=== PATIENT | female | born 1945 | race Caucasian/White ===

== ENCOUNTER → 2017-08-28 08:44 | Outpatient (CLI) | payer MEDICARE, SELFPAY ==
[2017-08-28 10:23] LABS: Cholesterol 198 mg/dL (140-199); HDL Cholesterol 49 mg/dL (40-60); LDL Cholesterol Calculated 120 mg/dL (<100); Triglycerides 143 mg/dL (35-150)
[2017-08-28 10:38] LABS: Free T4, Direct Thyroxine 1.26 ng/dL (0.78-2.19)
[2017-08-28 10:52] LABS: Thyroid Stimulating Hormone 0.95 uIU/mL (0.47-4.68)
== END ==
PROVIDERS: PCP Internal Medicine; Visit Provider Internal Medicine Endocrinology, Diabetes & Metabolism
DX: E11.9 Type 2 diabetes mellitus without complications (principal)
CPT/HCPCS: 36415; 80061; 84439; 84443

== ENCOUNTER → 2017-11-27 11:18 | Outpatient (CLI) | payer MEDICARE, SELFPAY ==
[2017-11-27 12:18] LABS: Hemoglobin A1C% w Est Avg Glu 6.6 % (4.0-6.0)
[2017-11-27 12:51] LABS: Cholesterol 141 mg/dL (140-199); HDL Cholesterol 52 mg/dL (40-60); LDL Cholesterol Calculated 64 mg/dL (<100); Triglycerides 123 mg/dL (35-150)
== END ==
PROVIDERS: PCP Internal Medicine; Visit Provider Internal Medicine Endocrinology, Diabetes & Metabolism
DX: E11.9 Type 2 diabetes mellitus without complications (principal)
CPT/HCPCS: 36415; 80061; 83036

== ENCOUNTER → 2018-06-30 10:31 | Outpatient (CLI) | payer MEDICARE, SELFPAY ==
[2018-06-30 11:24] LABS: Cholesterol 141 mg/dL (140-199); HDL Cholesterol 48 mg/dL (40-60); LDL Cholesterol Calculated 72 mg/dL (<100); Triglycerides 106 mg/dL (35-150)
[2018-06-30 11:28] LABS: Hemoglobin A1C% w Est Avg Glu 6.4 % (4.0-6.0)
[2018-06-30 11:52] LABS: TSH w/ Reflex to FT4 1.01 uIU/mL (0.47-4.68)
[2018-06-30 14:44] LABS: Creatinine Urine Random 50.6 mg/dL
[2018-06-30 14:48] LABS: Microalbumi Creatinin Ratio Ur 11.8 ug/mg CR (<30); Microalbumin Urine Random < 0.6 mg/dL (0-1.6)
== END ==
PROVIDERS: PCP Internal Medicine; Visit Provider Internal Medicine Endocrinology, Diabetes & Metabolism
DX: E03.8 Other specified hypothyroidism (principal); E78.5 Hyperlipidemia, unspecified; E11.65 Type 2 diabetes mellitus with hyperglycemia
CPT/HCPCS: 36415; 80061; 82043; 82570; 83036; 84443

== ENCOUNTER → 2018-10-30 10:46 | Outpatient (CLI) | payer MEDICARE, SELFPAY ==
[2018-10-30 12:41] LABS: Alanine Aminotransferase 25 IU/L (9-52); Albumin Globulin Ratio 1.5 (1.0-2.8); Alkaline Phosphatase 55 U/L (38-126); Aspartate Aminotransferase 24 IU/L (14-36); BUN Creatinine Ratio 31.4 (6-22); Bilirubin Total 0.6 mg/dL (0.2-1.3); Blood Urea Nitrogen 22 mg/dL (7-17); Calcium 9.3 mg/dL (8.4-10.2); Carbon Dioxide 25 mmol/L (22-32); Chloride 106 mmol/L (98-107); Cholesterol 165 mg/dL (140-199); Estimated Glomerular Filt Rate > 60.0 mL/min (>60); Globulin 2.6 g/dL (1.7-4.1); Glucose 130 mg/dL (80-110); HDL Cholesterol 55 mg/dL (40-60); HEMOLYSIS < 15 (0-50); LDL Cholesterol Calculated 94 mg/dL (<100); Potassium 4.4 mmol/L (3.4-5.1); Sodium 141 mmol/L (137-145); Total Protein 6.6 g/dL (6.3-8.2); Triglycerides 82 mg/dL (35-150)
[2018-10-30 12:43] LABS: Hemoglobin A1C% w Est Avg Glu 6.3 % (4.0-6.0)
[2018-10-30 12:48] LABS: Microalbumi Creatinin Ratio Ur 8.3 ug/mg CR (<30)
[2018-10-30 13:05] LABS: Thyroid Stimulating Hormone 0.91 uIU/mL (0.47-4.68)
== END ==
PROVIDERS: Family Provider Internal Medicine Endocrinology, Diabetes & Metabolism; PCP Internal Medicine; Visit Provider Internal Medicine
DX: I63.231 Cerebral infarction due to unspecified occlusion or stenosis of right carotid arteries (principal); E11.59 Type 2 diabetes mellitus with other circulatory complications; I10 Essential (primary) hypertension; E11.21 Type 2 diabetes mellitus with diabetic nephropathy; Z79.4 Long term (current) use of insulin
CPT/HCPCS: 36415; 80053; 80061; 82043; 82570; 83036; 84443

== ENCOUNTER → 2019-02-06 10:20 | Outpatient (CLI) | payer MEDICARE, SELFPAY | PROVIDERS: Family Provider Internal Medicine Endocrinology, Diabetes & Metabolism; PCP Internal Medicine; Visit Provider Nurse Practitioner | DX: N39.0 Urinary tract infection, site not specified (principal) | CPT/HCPCS: 87077; 87086; 87186 ==

== ENCOUNTER → 2019-03-19 13:36 | Outpatient (CLI) | payer MEDICARE, SELFPAY | PROVIDERS: Family Provider Internal Medicine Endocrinology, Diabetes & Metabolism; PCP Internal Medicine; Visit Provider Internal Medicine | DX: Z78.0 Asymptomatic menopausal state (principal); E07.9 Disorder of thyroid, unspecified; R29.890 Loss of height; Z90.722 Acquired absence of ovaries, bilateral | CPT/HCPCS: 77080 ==

== ENCOUNTER → 2019-03-22 10:32 | Outpatient (CLI) | payer MEDICARE, SELFPAY ==
--- NOTE | 2019-03-22 10:34 | DI.US.S_ITS ---
PROCEDURE: US PERIPH VENOUS LOW EXTREM RT INDICATIONS: PAIN MEDIAL TO LOWER LEG, R/O DVT TECHNIQUE: Real-time imaging, as well as color and pulse Doppler interrogation, were performed of the lower extremity deep veins from the inguinal ligament to the popliteal fossa. COMPARISON: None. FINDINGS: The common femoral, femoral and popliteal veins are normally compressible, and free of intraluminal thrombus. Color and pulse Doppler demonstrate normal phasic intraluminal flow. There is normal augmentation response to distal compression maneuver. IMPRESSION: No evidence of deep vein thrombosis of the right lower extremity. Dictated by: Miguel Mike M.D. on 03/22/2019 at 10:24 Approved by: Miguel Mike M.D. on 03/22/2019 at 10:32
== END ==
PROVIDERS: Family Provider Internal Medicine Endocrinology, Diabetes & Metabolism; PCP Internal Medicine; Visit Provider Physician Assistant
DX: M25.561 Pain in right knee (principal)
CPT/HCPCS: 93971

== ENCOUNTER → 2019-04-01 10:49 | Outpatient (CLI) | payer MEDICARE, SELFPAY ==
[2019-04-01 12:15] LABS: Add Manual Diff / Slide Review NO; Basophils Absolute Auto 0 /uL (0-100); Basophils Percent Auto 0.7 % (0-2); Eosinophils Absolute Auto 100 /uL (0-450); Eosinophils Percent Auto 2.5 % (2-4); Hematocrit 42.5 % (36-46); Hemoglobin 14.2 g/dL (12.0-16.0); Lymphocytes Absolute Auto 1800 /uL (1100-4500); Lymphocytes Percent Auto 32.1 % (25-40); Mean Corpuscular HGB Conc 33.5 % (30-36); Mean Corpuscular Volume 89.6 fL (80-100); Monocytes Absolute Auto 400 /uL (0-900); Neutrophils Absolute Auto 3200 /uL (1500-7000); Neutrophils Percent Auto 57.7 % (50-75); Platelet Count 210 X10^3/uL (150-400); Red Blood Cell Count 4.74 X10^6/uL (4.0-5.2); Red Cell Distribution Width 13.9 % (11.6-14.8); White Blood Cell Count 5.5 X10^3/uL (4.5-11.0)
[2019-04-01 12:25] LABS: Hemoglobin A1C% w Est Avg Glu 6.1 % (4.0-6.0)
[2019-04-01 12:42] LABS: Alanine Aminotransferase 22 IU/L (<35); Albumin 4.6 g/dL (3.5-5.0); Albumin Globulin Ratio 1.5 (1.0-2.8); Alkaline Phosphatase 53 U/L (38-126); Aspartate Aminotransferase 26 IU/L (14-36); BUN Creatinine Ratio 25.6 (6-22); Bilirubin Total 0.6 mg/dL (0.2-1.3); Blood Urea Nitrogen 23 mg/dL (7-17); Carbon Dioxide 27 mmol/L (22-32); Chloride 103 mmol/L (98-107); Estimated Glomerular Filt Rate > 60.0 mL/min (>60); Glucose 140 mg/dL (80-110); HEMOLYSIS < 15 (0-50); Potassium 4.8 mmol/L (3.4-5.1); Sodium 141 mmol/L (137-145); Total Protein 7.6 g/dL (6.3-8.2)
[2019-04-01 12:55] LABS: Creatinine Urine Random 101.3 mg/dL
[2019-04-01 12:59] LABS: Microalbumi Creatinin Ratio Ur 6.9 ug/mg CR (<30); Microalbumin Urine Random 0.7 mg/dL (0-1.6)
[2019-04-01 13:42] LABS: Hep C Virus Ab w/Reflex Quant NEGATIVE s/c (NEGATIVE)
== END ==
PROVIDERS: Family Provider Internal Medicine Endocrinology, Diabetes & Metabolism; PCP Internal Medicine; Referring Provider Internal Medicine; Visit Provider Internal Medicine
DX: Z11.59 Encounter for screening for other viral diseases (principal); E11.9 Type 2 diabetes mellitus without complications
CPT/HCPCS: 36415; 80053; 82043; 82570; 83036; 85025; 86803

== ENCOUNTER 2019-06-19 11:43 | Emergency (ER) | payer MEDICARE, SELFPAY ==
[2019-06-19 11:52] VITALS: BP 174/79; PULSE 94; RESP 14; TEMP 36.7; O2SAT 99
--- NOTE | 2019-06-19 12:05 | ED.FEMALEGU ---
HPI - Female Genitourinary General Chief complaint: Urogenital-Female Stated complaint: hematuria/urgency/frequency/pain x1 day Time Seen by Provider: 06/19/19 11:49 Source: patient Mode of arrival: Ambulatory Limitations: no limitations History of Present Illness HPI Narrative: CC: Hematuria with urgency and frequency. HPI: The patient is a 74-year-old female who does not appear to be in any acute distress comes into the emergency department stating that she believes she is having an acute urinary tract infection. This has developed over the last 2 days prior to admission. She admits to a history of frequent urinary tract infections. Today she noticed some blood in her urine. She complains that she has had increasing arm dysuria frequency with urgency. She denies any back pain. She has had no fever chills or sweats. She denies being on any anticoagulant. 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 She has a history of diabetes mellitus but no hypertension myocardial infarction or congestive heart failure. She has had no fever chills or sweats. She denies any chest pain cough shortness of breath palpitations. She has had no nausea vomiting diarrhea. She complains of lower abdominal pressure. She denies smoking cigarettes drinks alcohol only socially and does not use any drugs including marijuana. Related Data Home Medications Medication Instructions Recorded Confirmed thyroid (pork) [Nature-Throid] 65 mg PO QDAY@0600 #0 03/07/17 02/06/19 aspirin [Adult Low Dose Aspirin] 81 mg PO DAILY 06/19/19 06/19/19 Previous Rx's Medication Instructions Recorded nitrofurantoin monohyd/m-cryst 100 mg PO BID #28 cap 06/19/19 [Macrobid] phenazopyridine [Pyridium] 100 mg PO TID PRN #9 tab 06/19/19 Allergies Allergy/AdvReac Type Severity Reaction Status Date / Time No Known Drug Allergies Allergy Verified 06/19/19 11:55 Review of Systems Review of Systems Narrative: Her review of systems were all negative except for those mentioned in the history of present illness. Patient History Medical History Right knee pain (Acute) Surgical History History of bilateral salpingo-oophorectomy (BSO) Status post appendectomy Status post hysterectomy Family History Brother Age: 69 Diabetes mellitus Hypertension High cholesterol Brother Age: 67 Heart disease Hypertension High cholesterol Father Heart disease Stroke alcohol intake frequency: 0-2 drinks per day Substance Use Type: does not use Exam Narrative Exam Narrative: PHYSICAL EXAM: CONSTITUTIONAL: Awake, Alert, Oriented, Coherent, Cooperative in NAD. Does not appear toxic or ill. She does not appear uncomfortable. HEAD: AT/NC EENT: PERRL, FROM of eyes, no discharge. MOUTH:Oral mucosa is moist and pink, posterior pharynx is without erythema or exudate. NECK: Supple, no obvious JVD, Trachea is midline without stridor. SPINE: Palpationof the cervical, Thoracic, Lumbar or Sacral spine reveals no gross deformity or tenderness. No CVA tenderness. THORAX: No deformity, retractions, chest wall tenderness. LUNGS: Clear, symmetrical breath sounds without respiratory distress. HEART: Normal heart tones, regular rhythm and rate without murmur. ABDOMEN: Soft, non-tender, normal bowel sounds without guarding, rebound, rigidity or palpable mass. NEURO: Awake, alert, oriented, conversive, cranial nerves II-XII are symmetrical , moves all 4 extremities and is ambulatory. Initial Vital Signs Initial Vital Signs: Vital Signs Temperature 98.0 F 06/19/19 11:52 Pulse Rate 94 H 06/19/19 11:52 Respiratory Rate 14 06/19/19 11:52 Blood Pressure 174/79 H 06/19/19 11:52 Pulse Oximetry 99 06/19/19 11:52 Course Orders Ordered: Discontinued Medications Nitrofurantoin Macrocrystals (Macrobid 100 Mg Capsule) 100 mg PO NOW ONE Stop: 06/19/19 12:00 Last Admin: 06/19/19 12:33 Dose: 100 mg Documented by: CASA Phenazopyridine HCl (Pyridium) 100 mg PO NOW ONE Stop: 06/19/19 12:01 Last Admin: 06/19/19 12:33 Dose: 100 mg Documented by: CASA Vital Signs Vital signs: Vital Signs - 8 hr 06/19/19 11:52 Temperature 98.0 F Pulse Rate 94 H Respiratory Rate 14 Blood Pressure 174/79 H Pulse Oximetry 99 MDM - Female Genitourinary Lab Data Labs: Lab Results 06/19/19 Range/Units 12:17 Urine Color Red Urine Appearance Cloudy Urine pH 5.0 (4.5-8.0) Ur Specific [place] 1.010 (1.000-1.035) Urine Protein 2+ H (Negative) Urine Glucose (UA) Negative (Negative) g/dL Urine Ketones Negative (NEGATIVE) Urine Occult Blood 3+ H (Negative) Urine Nitrate Negative (Negative) Urine Bilirubin Negative (NEGATIVE) Urine Urobilinogen 0.2 (0.2) E.U./dL Ur Leukocyte Esterase 1+ H (NEGATIVE) Urine RBC >100/hpf H (0-5/HPF) Urine WBC >100/hpf H (0-5/HPF) Ur Squamous Epith Cells 0-1 /hpf (0-5/HPF) Ur Transition Epith Cell 0-1/hpf (0-5/HPF) Urine Bacteria Few (2-10) H (None) Ur Culture Indicated? Specimen cultured Discharge Plan Departure Patient Disposition: Home Clinical Impression: Acute hemorrhagic cystitis, Dysuria-frequency syndrome Discharge Date/Time: 06/19/19 12:47 Instructions: DI for Urinary Tract Infection (UTI) Activity Restrictions/Additional Instructions: 1. Follow-up with your urologist in [place]. Call and make a follow-up appointment. If you develop worsening abdominal pain or continued symptoms despite being on the Macrobid you need to return to the emergency department to be re-evaluated. 2. Take the Macrobid and peridium as prescribed. If you develop persistent nausea vomiting fever chills or sweats you need to return to the emergency department to be re-evaluated. Prescriptions: New nitrofurantoin monohyd/m-cryst [Macrobid] 100 mg capsule 100 mg PO BID Qty: 28 RF: 0 phenazopyridine [Pyridium] 100 mg tablet 100 mg PO TID PRN (Reason: pain) Qty: 9 RF: 0 No Action thyroid (pork) [Nature-Throid] 65 MG tablet 65 mg PO QDAY@0600 Qty: 0 RF: 0 aspirin [Adult Low Dose Aspirin] 81 mg Tablet,Delayed Release (Dr/Ec) 81 mg PO DAILY RF: 0 Referrals: Lo Brown MD [Primary Care Provider] -
[2019-06-19] MEDS: NITROFURANTOIN ER 100 MG CAPSULE PO (12:33)
[2019-06-19] MEDS: PHENAZOPYRIDINE 100 MG TABLET PO (12:33)
[2019-06-19 12:37] LABS: Appearance Urine UA CLOUDY; Bilirubin Urine UA NEGATIVE (NEGATIVE); Color Urine UA RED; Glucose Urine UA NEGATIVE (Negative); Ketones Urine UA NEGATIVE (NEGATIVE); Leukocyte Esterase Urine UA 1+ (NEGATIVE); Nitrite Urine UA NEGATIVE (Negative); Occult Blood Urine UA 3+ (Negative); Protein Urine UA 2+ (Negative); Urobilinogen Urine UA 0.2 E.U./dL (0.2)
[2019-06-19 12:42] LABS: Bacteria Urine Few (2-10); Culture Indicated Urine Specimen Cultured; RBC Urine >100/HPF (0-5/HPF); Squamous Epithelial Cell Urine 0-1 /HPF (0-5/HPF); Transitional Epi Cells Urine 0-1/HPF (0-5/HPF); WBC Urine >100/HPF (0-5/HPF)
[2019-06-19 12:45] VITALS: BP 149/77; PULSE 73; RESP 18; O2SAT 96
== END 2019-06-19 12:47 | disposition home or self-care (01) ==
PROVIDERS: Emergency Provider Emergency Medicine; Family Provider Internal Medicine Endocrinology, Diabetes & Metabolism; PCP Internal Medicine
DX: N30.01 Acute cystitis with hematuria (principal); R30.0 Dysuria; N34.3 Urethral syndrome, unspecified
CPT/HCPCS: 81001; 87077; 87086; 87186; 99283

== ENCOUNTER → 2019-11-02 17:15 | Outpatient (CLI) | payer MEDICARE, SELFPAY | PROVIDERS: Family Provider Internal Medicine Endocrinology, Diabetes & Metabolism; PCP Internal Medicine; Visit Provider Nurse Practitioner | DX: R30.0 Dysuria (principal) | CPT/HCPCS: 87086 ==

== ENCOUNTER → 2019-11-11 09:53 | Outpatient (CLI) | payer MEDICARE, SELFPAY ==
[2019-11-11 10:36] LABS: Alanine Aminotransferase 22 IU/L (<35); Albumin 4.1 g/dL (3.5-5.0); Albumin Globulin Ratio 1.4 (1.0-2.8); Alkaline Phosphatase 50 U/L (38-126); Aspartate Aminotransferase 22 IU/L (14-36); Bilirubin Total 0.6 mg/dL (0.2-1.3); Blood Urea Nitrogen 18 mg/dL (7-17); Calcium 9.4 mg/dL (8.4-10.2); Carbon Dioxide 29 mmol/L (22-32); Chloride 104 mmol/L (98-107); Cholesterol 156 mg/dL (140-199); Estimated Glomerular Filt Rate > 60.0 mL/min (>60); Glucose 171 mg/dL (80-110); HDL Cholesterol 58 mg/dL (40-60); HEMOLYSIS < 15 (0-50); Hemoglobin A1C% w Est Avg Glu 6.9 % (4.0-6.0); LDL Cholesterol Calculated 78 mg/dL (<100); Potassium 4.9 mmol/L (3.4-5.1); Sodium 139 mmol/L (137-145); Total Protein 7.1 g/dL (6.3-8.2); Triglycerides 101 mg/dL (35-150)
[2019-11-11 11:30] LABS: Thyroid Stimulating Hormone 0.985 uIU/mL (0.47-4.68)
== END ==
PROVIDERS: Family Provider Internal Medicine Endocrinology, Diabetes & Metabolism; PCP Internal Medicine; Referring Provider Internal Medicine; Visit Provider Internal Medicine
DX: R94.6 Abnormal results of thyroid function studies (principal); E11.59 Type 2 diabetes mellitus with other circulatory complications; I10 Essential (primary) hypertension
CPT/HCPCS: 36415; 80053; 80061; 83036; 84439; 84443

== ENCOUNTER 2020-05-12 13:33 | Emergency (ER) | payer MEDICARE, SELFPAY ==
[2020-05-12] VITALS (9 sets, daily range): BP systolic 161–185; BP diastolic 89–103; PULSE 75–107; RESP 16–18; TEMP 36.1; O2SAT 92–98; BMI 32.8
--- NOTE | 2020-05-12 14:24 | ED.GENADULT ---
HPI - General Adult General Chief complaint: Dizziness Stated complaint: nausea,dizziness,headache sent by doc Time Seen by Provider: 05/12/20 14:14 Source: patient Mode of arrival: Ambulatory Limitations: no limitations History of Present Illness HPI narrative: Patient is a 75-year-old female here for evaluation of nausea and dizziness. She also expresses a slight headache and a fullness in her right ear. She did take some Sudafed as she thought that potentially this was the cause of the problem and potentially help a slight amount. She has had a TIA in the past. There has also been a question of a CVA. She does not have any residual deficits from any potential stroke. She is not on anticoagulation except for aspirin. She has never had vertigo in the past. She does express a feeling like she is walking on a boat and not so much a room spinning sensation. She does have a history of hypothyroid. She is afebrile. She contacted her primary doctor who thought that she should come in to be evaluated. She does have a history of a right carotid artery stent which was placed after she had a workup for her TIA. Related Data Home Medications Medication Instructions Recorded Confirmed thyroid (pork) [Nature-Throid] 65 mg PO QDAY@0600 #0 03/07/17 11/02/19 aspirin [Adult Low Dose Aspirin] 81 mg PO DAILY 06/19/19 11/02/19 Previous Rx's Medication Instructions Recorded nitrofurantoin monohyd/m-cryst 100 mg PO BID #28 cap 06/19/19 [Macrobid] phenazopyridine [Pyridium] 100 mg PO TID PRN #9 tab 06/19/19 meclizine 25 mg PO TID PRN #10 tab 05/12/20 Allergies Allergy/AdvReac Type Severity Reaction Status Date / Time No Known Drug Allergies Allergy Verified 11/02/19 16:39 Review of Systems Constitutional Constitutional: Denies fatigue, Denies fever(s), Reports headache(s) and Denies weakness Eyes Eyes: Denies blurry vision ENT Ears, Nose, Mouth, and Throat: Denies vertigo, Reports dizziness, Reports headache(s) and Reports disequilibrium Cardiovascular Cardiovascular: Denies chest pain and Denies dyspnea Respiratory Respiratory: Denies dyspnea Gastrointestinal Gastrointestinal: Denies abdominal pain, Denies nausea and Denies vomiting Genitourinary Genitourinary: Denies dysuria Genitourinary: Denies dysuria Musculoskeletal Musculoskeletal: Denies arthralgias, Denies myalgias and Denies numbness Integumentary/Breasts Skin/Breast: Denies rash Neurologic Neurologic: Denies abnormal movements, Denies abnormal speech, Denies confusion, Denies vertigo, Reports dizziness, Reports headache(s), Denies localized weakness, Denies numbness, Denies convulsions, Reports disequilibrium and Denies weakness Psychiatric Psychiatric: Denies confusion Endocrine Endocrine: Denies fatigue Hematologic/Lymphatic On Anticoagulants: No Allergic/Immunologic Allergic/Immunologic: Denies urticaria Patient History Medical History (Updated 05/13/20 @ 08:00 by Karsten Dang DO) Hypertension Right knee pain TIA (transient ischemic attack) Surgical History History of bilateral salpingo-oophorectomy (BSO) Status post appendectomy Status post hysterectomy Family History Brother Age: 70 Diabetes mellitus Hypertension High cholesterol Brother Age: 68 Heart disease Hypertension High cholesterol Father Heart disease Stroke Social History Smoking Status: Never smoker Smoking Status: Never smoker alcohol intake frequency: 0-2 drinks per day Substance Use Type: does not use Exam Initial Vital Signs Initial Vital Signs: Vital Signs Temperature 97.0 F L 05/12/20 13:44 Pulse Rate 107 H 05/12/20 13:44 Respiratory Rate 16 05/12/20 13:44 Blood Pressure 183/103 H 05/12/20 13:44 Pulse Oximetry 97 05/12/20 13:44 Const General: cooperative, comfortable and well developed Limitations: mental status not altered HENMT Head: normal to inspection and normocephalic Ears: TM's normal bilaterally Mouth: oral mucosae normal Resp Effort & Inspection: normal respiratory effort Auscultation: clear to auscultation bilaterally Cardio Rate: regular rate Rhythm: regular rhythm GI Inspection: non-distended Palpation: soft Skin Lesions: no lesions Rashes: no rashes Neuro General: patient alert, patient awake and patient oriented x3 Cranial Nerves: CN's II-XI intact bilaterally Cognition: normal cognition Speech: speech normal Gait: other (Is able to walk but somewhat unsteady) Motor: muscle tone normal throughout Sensory Exam: no sensory deficits noted Coordination: [id number] test normal Extrem General: normal to inspection, capillary refill normal and No edema Psych Appearance: grossly normal and well kempt Scores GCS [place] coma scale eye opening: Spontaneous [place] coma scale verbal response: Orientated [place] coma scale motor response: Obey commands Eda coma scale total score: 15 NIH Stroke Scale Level of Conciousness: Alert, keenly responsive Ask month/age: Answers both questions correctly. Open/close eyes, close hand: Performs both tasks correctly Best gaze horizontal: Normal Visual crum: No visual loss Facial palsy: Normal symetrical movement Left arm drift: No drift for full 10 sec Right arm drift: No drift for full 10 sec Left leg drift: No drift for full 5 sec Right leg drift: No drift for full 5 sec Limb ataxia: Absent Sensory on face/arms/legs: Normal, no sensory loss Best language: No aphasia, normal Dysarthria: Normal Extinction or inattention: No abnormality Total NIH Stroke scale score: 0 Course Orders Ordered: ED Orders 05/12/20 13:47 EKG-12 Lead Stat 05/12/20 14:09 XR chest 1V Stat Complete Blood Count AUTO DIFF Stat Comprehensive Metabolic Panel Stat Lipase Stat Partial Thromboplastin Time Stat Prothrombin Time INR Stat Troponin & CK Cardiac Panel Stat Vital Signs Vital signs: Vital Signs - 8 hr 05/12/20 13:44 05/12/20 13:57 05/12/20 14:00 Temperature 97.0 F L Pulse Rate 107 H 90 90 Respiratory Rate 16 16 18 Blood Pressure 183/103 H 185/89 H Pulse Oximetry 97 94 95 Medical Decision Making Lab Data Lab results reviewed: Yes I reviewed the patient's lab results. Result diagrams: 05/12/20 14:05 05/12/20 14:05 Labs: Lab Results 05/12/20 05/12/20 05/12/20 Range/Units 14:05 14:05 14:05 WBC 6.9 (4.5-11.0) X10^3/uL RBC 4.45 (4.0-5.2) X10^6/uL Hgb 13.1 (12.0-16.0) g/dL Hct 39.9 (36-46) % MCV 89.6 (80-100) fL MCH 29.5 (26-34) PG MCHC 32.9 (30-36) % RDW 13.6 (11.6-14.8) % Plt Count 193 (150-400) X10^3/uL Neut % (Auto) 57.3 (50-75) % Lymph % (Auto) 31.8 (25-40) % [place] % (Auto) 8.4 (3-14) % Eos % (Auto) 2.1 (2-4) % Baso % (Auto) 0.4 (0-2) % Neut # (Auto) 4000 (0958-6802) /uL Lymph # (Auto) 2200 (4320-0239) /uL [place] # (Auto) 600 (0-900) /uL Eos # (Auto) 100 (0-450) /uL Baso # (Auto) 0 (0-100) /uL PT 12.4 (10.1-12.7) SECONDS INR 1.1 (0.9-1.3) APTT 28 (26.4-36.2) SECONDS Sodium 138 (137-145) mmol/L Potassium 3.8 (3.4-5.1) mmol/L Chloride 105 (98-107) mmol/L Carbon Dioxide 26 (22-32) mmol/L BUN 15 (7-17) mg/dL Creatinine 0.63 (0.52-1.04) mg/dL Estimated GFR > 60.0 (>60) mL/min BUN/Creatinine Ratio 23.8 H (6-22) Glucose 111 H (80-110) mg/dL Calcium 9.8 (8.4-10.2) mg/dL Total Bilirubin 0.5 (0.2-1.3) mg/dL AST 25 (14-36) IU/L ALT 24 (<35) IU/L Alkaline Phosphatase 57 (38-126) U/L Total Creatine Kinase 65 (30-135) U/L CK-MB (CK-2) TNP CK-MB (CK-2) Rel Index TNP Troponin I < 0.012 (0.01-0.034) ng/mL Total Protein 7.1 (6.3-8.2) g/dL Albumin 4.3 (3.5-5.0) g/dL Globulin 2.8 (1.7-4.1) g/dL Albumin/Globulin Ratio 1.5 (1.0-2.8) Lipase 55 (23-300) U/L Urine Dip Bedside Urine Glucose Negative Bedside Urine Bilirubin - Negative Bedside Urine Ketone - Negative Urine Specific [place] 1.020 Bedside Urine Occult Blood - Negative Bedside Urine pH 6 Bedside Urine Protein - Negative Bedside Urine Urobilinogen - Negative Bedside Urine Nitrite - Negative Bedside Urine Leukocytes - Negative Esterase Point of care testing: Urine Dip Bedside Urine Glucose Negative Bedside Urine Bilirubin - Negative Bedside Urine Ketone - Negative Urine Specific [place] 1.020 Bedside Urine Occult Blood - Negative Bedside Urine pH 6 Bedside Urine Protein - Negative Bedside Urine Urobilinogen - Negative Bedside Urine Nitrite - Negative Bedside Urine Leukocytes - Negative Esterase Imaging Data CTA - brain/neck: Radiologist's Impression: [address] [id number] Scan ReportSigned Patient: Bryan Quesada JMR#: [id number]: [id number]/Sex: 75 / FDate of Service: 05/12/20Loc: EDAccession Number: [id number] Procedure: CT angio head and neck Ordering Provider: Karsten Dang D.O. PROCEDURE: CT ANGIO HEAD AND NECK INDICATIONS: hx of TIA and right carotid artery stent now with dizziness TECHNIQUE: Pre-contrast 4.5 mm thick sections acquired from the foramen magnum to the vertex. After the administration of intravenous contrast, 1 mm thick sections acquired from the aortic arch through the [place] of [place]. Post-contrast 4.5 mm thick sections then re-acquired from the foramen magnum to the vertex. 3-dimensional mmujovh-hjwhktdgh-gqukcrviix (MIP) and/or volume rendering reformats were acquired of the central intracranial vasculature and neck separately. COMPARISON: [facility], MR, STROKE PROTOCOL, 03/07/2017, 11:20. [facility], CT, HEAD WITHOUT CONTRAST, 03/07/2017, 2:29. FINDINGS: Image quality: Excellent. BRAIN: CSF spaces: Basal cisterns are patent. No extra-axial fluid collections. The ventricles are normal in size. Brain: No intracranial hemorrhage, mass, or mass effect. There is encephalomalacia redemonstrated within the right posterior parietal and occipital lobes consistent with sequelae of a prior infarct. A small region of encephalomalacia is also redemonstrated in the right frontal lobe consistent with a small prior infarct. No abnormal intracranial enhancement. The a Skull and face: Calvarium and facial bones appear intact, without suspicious lesions. Orbits appear normal. Sinuses: Sinuses and mastoids are clear. HEAD CT ANGIOGRAPHY: Anterior circulation: Intracranial internal carotid arteries are normal in size and appear patent bilaterally. There is mild atherosclerotic calcification along the cavernous segments of the internal carotid arteries. The paired anterior cerebral arteries appear patent bilaterally. The anterior communicating artery also appears patent. The middle cerebral arteries appear patent bilaterally. No high-grade stenosis, occlusion, or filling defects. No cerebral aneurysms identified. Posterior circulation: Visualized portions of the vertebral arteries demonstrate normal caliber, and join to form a patent basilar artery. The posterior cerebral arteries appears patent bilaterally. No high-grade stenosis, occlusion, or filling defects. No cerebral aneurysms identified. NECK CT ANGIOGRAPHY: Carotid system: The great vessels demonstrate a conventional anatomy as they arise from the aortic arch. The origins of the common carotid arteries appear patent. There is a vascular stent in the right common carotid artery extending into the proximal internal carotid artery. The right external carotid artery appears occluded with subsequent reconstitution of more distal branches. There is atherosclerotic vascular calcification at the left carotid bifurcation and in the left carotid bulb with associated mild narrowing of less than 50%. The internal carotid arteries subsequently demonstrate normal calibers and courses. Posterior circulation: The origins of the vertebral arteries both appear patent. The more superior extracranial portions of both vertebral arteries also demonstrate normal courses and calibers. They join to form a patent basilar artery. Soft tissues: Visualized neck soft tissues demonstrate no suspicious abnormalities. Bones: No suspicious bony lesions. Visualized cervical spine demonstrates multilevel degenerative disc disease, including moderate degeneration at C5-C6. IMPRESSION: 1. No definite acute intracranial abnormality. 2. Areas of right-sided encephalomalacia redemonstrated consistent with sequelae of old infarcts. 3. No high-grade stenosis or occlusion of the central intracranial arteries. 4. Right carotid artery stent appears patent. 5. Occlusion of the right external carotid artery with reconstitution of branches distally. 6. Mild narrowing in the left carotid bulb of less than 50%. Any quantitative measurements of stenosis were performed using NASCET criteria. Dictated by: Joseluis Arias M.D. on 05/12/2020 at 15:36 Approved by: Joseluis Arias M.D. on 05/12/2020 at 15:55 ECG Data Attestation: I personally reviewed and interpreted this ECG as follows: Prior ECG tracings: not available for review Interpretation: Sinus rhythm Ventricular rate 89 Normal axis Normal QRS Normal QTC No ST T wave changes MDM Narrative Medical decision making narrative: NIH score of 0. Symptoms started 3 days ago. CTA of the head neck today unremarkable shows no large vessel occlusion. She is able to walk without assistance but does seem somewhat unsteady. She does have fullness in her right ear. Given her clinical presentation I did consider a posterior stroke however workup here in the emergency department is unremarkable. Informed her that she is outside the window for any tPA. We also discussed that according to the CT there is no occlusion that would require retrieval intervention. She is also outside of the window for this. She is already on an aspirin and other medical treatment for potential CVA. I do feel that if her symptoms do not improve with decongestants another conservative treatment that an MRI would be necessary but I feel that this could wait to be ordered by her primary doctor. I did discuss all this with the patient. I did discuss my concerns and the proposed plan. She expressed understanding and agreed with this fully and will contact her primary provider for follow-up. She was given return precautions. Discharge Plan Departure Patient Disposition: Home Clinical Impression: General unsteadiness Instructions: DI for Dizziness-Nonvertigo Activity Restrictions/Additional Instructions: I recommend you continue all of your medications as directed although I do recommend that you stop taking the pseudoephedrine. You can continue with the Flonase. Take the meclizine that was prescribed to you by your primary doctor as directed. I also recommend that you start taking either Claritin or Caitlyn or Zyrtec. The generic version of these medications is also appropriate. You can purchase them [id number]. Return to the emergency department for any new or worsening symptoms Prescriptions: New meclizine 25 mg tablet 25 mg PO TID PRN (Reason: dizziness) Qty: 10 RF: 0 No Action thyroid (pork) [Nature-Throid] 65 MG tablet 65 mg PO QDAY@0600 Qty: 0 RF: 0 aspirin [Adult Low Dose Aspirin] 81 mg Tablet,Delayed Release (Dr/Ec) 81 mg PO DAILY RF: 0 nitrofurantoin monohyd/m-cryst [Macrobid] 100 mg capsule 100 mg PO BID Qty: 28 RF: 0 phenazopyridine [Pyridium] 100 mg tablet 100 mg PO TID PRN (Reason: pain) Qty: 9 RF: 0 Referrals: Lo Brown MD [Primary Care Provider] -
[2020-05-12 14:28] LABS: Add Manual Diff / Slide Review NO; Basophils Absolute Auto 0 /uL (0-100); Basophils Percent Auto 0.4 % (0-2); Eosinophils Absolute Auto 100 /uL (0-450); Eosinophils Percent Auto 2.1 % (2-4); Hematocrit 39.9 % (36-46); Hemoglobin 13.1 g/dL (12.0-16.0); Lymphocytes Absolute Auto 2200 /uL (1100-4500); Lymphocytes Percent Auto 31.8 % (25-40); Mean Corpuscular HGB Conc 32.9 % (30-36); Mean Corpuscular Hemoglobin 29.5 PG (26-34); Mean Corpuscular Volume 89.6 fL (80-100); Monocytes Absolute Auto 600 /uL (0-900); Monocytes Percent Auto 8.4 % (3-14); Neutrophils Absolute Auto 4000 /uL (1500-7000); Neutrophils Percent Auto 57.3 % (50-75); Platelet Count 193 X10^3/uL (150-400); Red Blood Cell Count 4.45 X10^6/uL (4.0-5.2); Red Cell Distribution Width 13.6 % (11.6-14.8); White Blood Cell Count 6.9 X10^3/uL (4.5-11.0)
[2020-05-12 14:36] LABS: INR 1.1 (0.9-1.3); Prothrombin Time 12.4 SECONDS (10.1-12.7)
[2020-05-12 14:38] LABS: PTT Partial Thromboplastin Tim 28 SECONDS (26.4-36.2)
[2020-05-12 14:39] LABS: Alanine Aminotransferase 24 IU/L (<35); Albumin 4.3 g/dL (3.5-5.0); Albumin Globulin Ratio 1.5 (1.0-2.8); Alkaline Phosphatase 57 U/L (38-126); Aspartate Aminotransferase 25 IU/L (14-36); BUN Creatinine Ratio 23.8 (6-22); Bilirubin Total 0.5 mg/dL (0.2-1.3); Blood Urea Nitrogen 15 mg/dL (7-17); Calcium 9.8 mg/dL (8.4-10.2); Carbon Dioxide 26 mmol/L (22-32); Chloride 105 mmol/L (98-107); Creatine Kinase 65 U/L (30-135); Estimated Glomerular Filt Rate > 60.0 mL/min (>60); Globulin 2.8 g/dL (1.7-4.1); Glucose 111 mg/dL (80-110); HEMOLYSIS < 15 (0-50); Lipase 55 U/L (23-300); Potassium 3.8 mmol/L (3.4-5.1); Sodium 138 mmol/L (137-145); Total Protein 7.1 g/dL (6.3-8.2)
[2020-05-12 14:51] LABS: Troponin I < 0.012 ng/mL (0.01-0.034)
== END 2020-05-12 16:33 | disposition home or self-care (01) ==
PROVIDERS: Emergency Provider Emergency Medicine; Family Provider Internal Medicine Endocrinology, Diabetes & Metabolism; PCP Internal Medicine
DX: R26.81 Unsteadiness on feet (principal); R51.9 Headache, unspecified; R11.0 Nausea; R07.9 Chest pain, unspecified; Z95.5 Presence of coronary angioplasty implant and graft
CPT/HCPCS: 36415; 70496; 70498; 80053; 81003; 82550; 83690; 84484; 85025; 85610; 85730; 93005; 93010; 99284; Q9967

== ENCOUNTER 2020-05-22 17:20 | Observation (INO) | payer MEDICARE, SELFPAY ==
[2020-05-22] VITALS (9 sets, daily range): BP systolic 154–200; BP diastolic 84–100; PULSE 93–110; RESP 16–24; TEMP 36.2–36.5; O2SAT 94–99; BMI 33.0
--- NOTE | 2020-05-22 17:33 | DI.CT.S_ITS ---
PROCEDURE: CT HEAD/BRAIN WO CON INDICATIONS: confusion dizziness, headache TECHNIQUE: Noncontrast 4.5 mm thick angled axial sections acquired from the foramen magnum to the vertex, with coronal and sagittal reformats. For radiation dose reduction, the following was used: automated exposure control, adjustment of mA and/or kV according to patient size. COMPARISON: [facility], CT, HEAD WITHOUT CONTRAST, 08/30/2014, 19:23. [facility], CT, HEAD WITHOUT CONTRAST, 09/02/2014, 8:51. [facility], CT, CT ANGIO HEAD AND NECK, 05/12/2020, 14:47. [facility], CT, HEAD WITHOUT CONTRAST, 03/07/2017, 2:29. FINDINGS: Image quality: Excellent. CSF spaces: Basal cisterns are patent. No extra-axial fluid collections. The ventricles are symmetric in size and shape. Brain: There is a remote right posterior cerebral hemisphere infarction seen, which is similar to 2018. No intracranial bleeds or masses. There is cerebral volume loss for age, with resultant ventricular and sulcal prominence. There are periventricular and deep white matter chronic small vessel ischemic changes. There is intracranial internal carotid artery atherosclerosis. Skull and face: Calvarium and visualized facial bones appear intact, without suspicious lesions. Sinuses: Visualized sinuses and mastoids are clear. IMPRESSION: No acute intracranial process is seen. Remote right posterior cerebral hemisphere infarction, which is not significantly changed compared to 2018. Dictated by: Arley Mcintyre M.D. on 05/22/2020 at 16:52 Approved by: Arley Mcintyre M.D. on 05/22/2020 at 16:54
--- NOTE | 2020-05-22 17:38 | ED.SEIZURE ---
HPI - Seizure General Chief Complaint: Neuro Symptoms/Deficit Stated Complaint: Memory Loss, Confussion Time Seen by Provider: 05/22/20 17:32 Source: patient Mode of arrival: Ambulatory Related Data Home Medications Medication Instructions Recorded Confirmed thyroid (pork) [Nature-Throid] 65 mg PO QDAY@0600 #0 03/07/17 11/02/19 aspirin [Adult Low Dose Aspirin] 81 mg PO DAILY 06/19/19 11/02/19 Previous Rx's Medication Instructions Recorded nitrofurantoin monohyd/m-cryst 100 mg PO BID #28 cap 06/19/19 [Macrobid] phenazopyridine [Pyridium] 100 mg PO TID PRN #9 tab 06/19/19 meclizine 25 mg PO TID PRN #10 tab 05/12/20 Allergies Allergy/AdvReac Type Severity Reaction Status Date / Time No Known Drug Allergies Allergy Verified 05/22/20 17:38 Patient History Medical History (Updated 05/13/20 @ 08:00 by Karsten Dang DO) Hypertension Right knee pain TIA (transient ischemic attack) Surgical History History of bilateral salpingo-oophorectomy (BSO) Status post appendectomy Status post hysterectomy Family History Brother Age: 70 Diabetes mellitus Hypertension High cholesterol Brother Age: 68 Heart disease Hypertension High cholesterol Father Heart disease Stroke Social History Smoking Status: Never smoker Smoking Status: Never smoker alcohol intake frequency: 0-2 drinks per day Substance Use Type: does not use Exam Initial Vital Signs Initial Vital Signs: Vital Signs Temperature 97.1 F L 05/22/20 17:35 Pulse Rate 110 H 05/22/20 17:35 Respiratory Rate 16 05/22/20 17:35 Blood Pressure 168/88 H 05/22/20 17:35 Pulse Oximetry 99 05/22/20 17:35 Course Orders Ordered: ED Orders 05/22/20 17:33 CT head/brain wo con Stat Complete Blood Count AUTO DIFF Stat Comprehensive Metabolic Panel Stat Partial Thromboplastin Time Stat Prothrombin Time INR Stat Troponin & CK Cardiac Panel Stat Urine Drug Screen, Rapid Stat EKG-12 Lead Stat Vital Signs Vital signs: Vital Signs - 8 hr 05/22/20 17:35 Temperature 97.1 F L Pulse Rate 110 H Respiratory Rate 16 Blood Pressure 168/88 H Pulse Oximetry 99 Discharge Plan Departure Prescriptions: No Action thyroid (pork) [Nature-Throid] 65 MG tablet 65 mg PO QDAY@0600 Qty: 0 RF: 0 meclizine 25 mg tablet 25 mg PO TID PRN (Reason: dizziness) Qty: 10 RF: 0 aspirin [Adult Low Dose Aspirin] 81 mg Tablet,Delayed Release (Dr/Ec) 81 mg PO DAILY RF: 0 nitrofurantoin monohyd/m-cryst [Macrobid] 100 mg capsule 100 mg PO BID Qty: 28 RF: 0 phenazopyridine [Pyridium] 100 mg tablet 100 mg PO TID PRN (Reason: pain) Qty: 9 RF: 0
[2020-05-22 18:34] LABS: Add Manual Diff / Slide Review NO; Basophils Absolute Auto 100 /uL (0-100); Basophils Percent Auto 0.6 % (0-2); Eosinophils Absolute Auto 100 /uL (0-450); Eosinophils Percent Auto 1.4 % (2-4); Lymphocytes Absolute Auto 2000 /uL (1100-4500); Lymphocytes Percent Auto 21.1 % (25-40); Mean Corpuscular HGB Conc 33.2 % (30-36); Mean Corpuscular Hemoglobin 29.5 PG (26-34); Mean Corpuscular Volume 88.8 fL (80-100); Monocytes Absolute Auto 600 /uL (0-900); Monocytes Percent Auto 6.4 % (3-14); Neutrophils Absolute Auto 6600 /uL (1500-7000); Neutrophils Percent Auto 70.5 % (50-75); Platelet Count 197 X10^3/uL (150-400); Red Blood Cell Count 4.73 X10^6/uL (4.0-5.2); Red Cell Distribution Width 13.2 % (11.6-14.8); White Blood Cell Count 9.3 X10^3/uL (4.5-11.0)
--- NOTE | 2020-05-22 18:39 | ED.NEUROSD ---
HPI - Neuro Symptoms/Deficit General Chief Complaint: Neuro Symptoms/Deficit Stated Complaint: Memory Loss, Confussion Time Seen by Provider: 05/22/20 17:32 Source: patient Mode of arrival: Ambulatory Limitations: no limitations History of Present Illness HPI Narrative: Patient is a 75-year-old female history of dizziness presenting with confusion. She has a history of dizziness was actually seen evaluated here last week she had ED workup which included head CT and CT angio she was discharged home and followed up with her primary care provider in [place] where she had an MRI 3 days ago. She was getting on the [facility] to be evaluated by ENT for her chronic dizziness and ear pain. Dr. Herman noted that she seemed quite confused and had difficulty sequencing events which is abnormal for her. She does have a history of CVA which presented as confusion and arm weakness. She denies any arm weakness but does state that she was quite confused she was unable to give me an exact time. She denies any dizziness lightheadedness chest pain palpitations or shortness of breath. She has not had any fever or chills. Her PCP increased her meclizine on Friday to 50 mg. She now feels like she is clearing a bit. Onset (ago): hour(s) On Anticoagulants: Yes (aspirin) Related Data Home Medications Medication Instructions Recorded Confirmed aspirin [Adult Low Dose Aspirin] 81 mg PO DAILY 06/19/19 11/02/19 atorvastatin 10 mg PO 3XW 05/22/20 05/22/20 ezetimibe 10 mg PO DAILY 05/22/20 05/22/20 metoprolol tartrate 12.5 mg PO BID 05/22/20 05/22/20 olmesartan [Benicar] 5 mg PO DAILY 05/22/20 05/22/20 Allergies Allergy/AdvReac Type Severity Reaction Status Date / Time No Known Drug Allergies Allergy Verified 05/22/20 17:38 Review of Systems Review of Systems ROS Unobtainable: All systems reviewed & are unremarkable except as noted in HPI and below Constitutional Constitutional: Denies chills, Denies fever(s), Denies frequent falls, Denies headache(s), Denies lethargy and Denies weakness Eyes Eyes: Denies change in vision, Denies eye discharge, Denies irritation and Denies loss of vision ENT Ears, Nose, Mouth, and Throat: Denies vertigo, Denies dizziness and Denies headache(s) Cardiovascular Cardiovascular: Denies chest pain, Denies syncope, Denies irregular heart rhythm, Denies lightheadedness, Denies palpitations, Denies dyspnea, Denies dyspnea on exertion and Denies orthopnea Respiratory Respiratory: Denies cough, Denies dyspnea, Denies dyspnea on exertion and Denies wheezing Gastrointestinal Gastrointestinal: Denies abdominal pain, Denies change in bowel habits, Denies diarrhea, Denies nausea and Denies vomiting Genitourinary Genitourinary: Denies as per HPI Genitourinary: Denies as per HPI Musculoskeletal Musculoskeletal: Denies back pain, Denies myalgias and Denies numbness Integumentary/Breasts Skin/Breast: Denies pruritus, Denies erythema, Denies rash and Denies wounds Neurologic Neurologic: Reports confusion, Denies vertigo, Denies dizziness, Denies syncope, Denies frequent falls, Denies headache(s), Denies loss of vision, Reports memory loss, Denies numbness, Denies other visual disturbances and Denies weakness Psychiatric Psychiatric: Reports confusion and Reports memory loss Endocrine Endocrine: Denies palpitations Hematologic/Lymphatic On Anticoagulants: Yes (aspirin) Allergic/Immunologic Allergic/Immunologic: Denies wheezing 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 TIA (transient ischemic attack) Surgical History (Updated 05/23/20 @ 02:48 by ROBERT Epstein) History of bilateral salpingo-oophorectomy (BSO) History of endarterectomy Status post appendectomy Status post hysterectomy Family History Brother Age: 70 Diabetes mellitus Hypertension High cholesterol Brother Age: 68 Heart disease Hypertension High cholesterol Father Heart disease Stroke Social History household members: other Smoking Status: Never smoker Smoking Status: Never smoker alcohol intake frequency: 0-2 drinks per day Substance Use Type: does not use Exam Initial Vital Signs Initial Vital Signs: Vital Signs Temperature 97.1 F L 05/22/20 17:35 Pulse Rate 110 H 05/22/20 17:35 Respiratory Rate 16 05/22/20 17:35 Blood Pressure 168/88 H 05/22/20 17:35 Pulse Oximetry 99 05/22/20 17:35 GENERAL: Alert pleasant 75-year-old female no acute distress and in no acute distress. HEENT: Head atraumatic,EOMI, pupils reactive, face symmetric, moist mucous membranes CARDIOVASCULAR: Regular rate and rhythm without murmurs, rubs or gallops. RESPIRATORY: Breath sounds equal bilaterally, no wheezes rales or rhonchi. ABDOMEN: Soft, nontender. Normoactive bowel sounds all 4 quadrants. No guarding or rebound. EXTREMITIES: Normal range of motion, no clubbing or edema. Neurovascularly intact NEUROLOGICAL: Alert and oriented x4.Normal gait and speech. Cranial nerves II through XII grossly intact. Good [id number], good [id number], strength equal bilaterally, no dysarthria or aphasia, sensation in tact to soft touch bilaterally, no visual changes, no facial droop SKIN: Warm, dry, no laceration, no petechiae, no rashes or lesions. Course Orders Ordered: Acetaminophen (Acetaminophen 325 Mg Tablet) 650 mg PO Q6HR PRN PRN Reason: Fever/Mild Pain (1-3) Hydrocodone Bitart/Acetaminophen (Hydrocodone/Acet 5/325 Tablet) 1 tab PO Q4HR PRN PRN Reason: Pain, Moderate (4-6) Al Hydrox/Mg Hydrox/Simethicone (Mag Hydrox/Alum/Simeth 30 Ml Udc) 30 ml PO Q6HR PRN PRN Reason: Dyspepsia Aspirin (Aspirin Ec 325 Mg Tablet) 325 mg PO DAILY [facility] Atorvastatin Calcium (Atorvastatin 20 Mg Tablet) 80 mg PO BEDTIME [facility] Last Admin: 05/23/20 00:34 Dose: Not Given Documented by: Clopidogrel Bisulfate (Clopidogrel 75 Mg Tablet) 75 mg PO DAILY [facility] Docusate Sodium (Docusate 100 Mg Capsule) 100 mg PO BID [facility] Last Admin: 05/23/20 00:39 Dose: Not Given Documented by: Ezetimibe (Ezetimibe 10 Mg Tablet) 10 mg PO DAILY [facility] Lorazepam (Lorazepam 2 Mg/Ml Inj) 1 mg IV NOW ONE Stop: 05/23/20 07:45 Metoprolol Tartrate (Metoprolol Ir 25 Mg Tablet) 12.5 mg PO BID [facility] Naloxone HCl (Naloxone 0.4 Mg/Ml Vial) 0.2 mg IV Q2MIN PRN PRN Reason: Opiate Reversal Olmesartan (Olmesartan 5 Mg Tablet) 5 mg PO DAILY [facility] Ondansetron HCl (Ondansetron 4 Mg Odt) 4 mg PO Q8HR PRN PRN Reason: Nausea And Vomiting Sennosides (Sennosides 8.6 Mg Tablet) 17.2 mg PO BEDTIME [facility] Last Admin: 05/23/20 00:39 Dose: Not Given Documented by: Discontinued Medications Metoprolol Succinate (Metoprolol Er 25 Mg Tablet) 25 mg PO NOW ONE Stop: 05/22/20 23:44 Last Admin: 05/23/20 00:33 Dose: 25 mg Documented by: Vital Signs Vital signs: Vital Signs - 8 hr 05/22/20 17:35 05/22/20 18:46 Temperature 97.1 F L Pulse Rate 110 H 104 H Respiratory Rate 16 24 Blood Pressure 168/88 H 200/97 H Pulse Oximetry 99 98 MDM - Neuro Symptoms/Deficit Lab Data Attestation: I reviewed the patient's lab results. Result diagrams: 05/22/20 18:24 05/23/20 04:50 Labs: Lab Results 05/22/20 05/22/20 05/22/20 Range/Units 18:24 18:24 18:24 WBC 9.3 (4.5-11.0) X10^3/uL RBC 4.73 (4.0-5.2) X10^6/uL Hgb 14.0 (12.0-16.0) g/dL Hct 42.0 (36-46) % MCV 88.8 (80-100) fL MCH 29.5 (26-34) PG MCHC 33.2 (30-36) % RDW 13.2 (11.6-14.8) % Plt Count 197 (150-400) X10^3/uL Neut % (Auto) 70.5 (50-75) % Lymph % (Auto) 21.1 L (25-40) % Newberry % (Auto) 6.4 (3-14) % Eos % (Auto) 1.4 L (2-4) % Baso % (Auto) 0.6 (0-2) % Neut # (Auto) 6600 (7027-3894) /uL Lymph # (Auto) 2000 (6207-6871) /uL Newberry # (Auto) 600 (0-900) /uL Eos # (Auto) 100 (0-450) /uL Baso # (Auto) 100 (0-100) /uL PT 12.8 H (10.1-12.7) SECONDS INR 1.1 (0.9-1.3) APTT 29 (26.4-36.2) SECONDS Sodium 140 (137-145) mmol/L Potassium 3.8 (3.4-5.1) mmol/L Chloride 104 (98-107) mmol/L Carbon Dioxide 27 (22-32) mmol/L BUN 15 (7-17) mg/dL Creatinine 0.73 (0.52-1.04) mg/dL Estimated GFR > 60.0 (>60) mL/min BUN/Creatinine Ratio 20.5 (6-22) Glucose 123 H (80-110) mg/dL Calcium 10.0 (8.4-10.2) mg/dL Total Bilirubin 0.5 (0.2-1.3) mg/dL AST 23 (14-36) IU/L ALT 20 (<35) IU/L Alkaline Phosphatase 63 (38-126) U/L Total Creatine Kinase 51 (30-135) U/L CK-MB (CK-2) TNP CK-MB (CK-2) Rel Index TNP Troponin I < 0.012 (0.01-0.034) ng/mL NT-Pro-B Natriuret Pep (<125) pg/mL Total Protein 7.5 (6.3-8.2) g/dL Albumin 4.4 (3.5-5.0) g/dL Globulin 3.1 (1.7-4.1) g/dL Albumin/Globulin Ratio 1.4 (1.0-2.8) U Opiates 300ng/mL cut (Negative) Ur Oxycodone Screen (Negative) Urine Methadone Screen (Negative) Ur Barbiturates Screen (Negative) U Tricyclic Antidepress (Negative) Ur Phencyclidine Scrn (Negative) Ur Amphetamines Screen (Negative) U Methamphetamines Scrn (Negative) Ur MDMA Scrn (Ecstasy) (Negative) U Benzodiazepines Scrn (Negative) Urine Cocaine Screen (Negative) U Marijuana (THC) Screen (Negative) 05/22/20 05/22/20 Range/Units 18:24 19:14 WBC (4.5-11.0) X10^3/uL RBC (4.0-5.2) X10^6/uL Hgb (12.0-16.0) g/dL Hct (36-46) % MCV (80-100) fL MCH (26-34) PG MCHC (30-36) % RDW (11.6-14.8) % Plt Count (150-400) X10^3/uL Neut % (Auto) (50-75) % Lymph % (Auto) (25-40) % Newberry % (Auto) (3-14) % Eos % (Auto) (2-4) % Baso % (Auto) (0-2) % Neut # (Auto) (6242-0231) /uL Lymph # (Auto) (3672-6232) /uL Newberry # (Auto) (0-900) /uL Eos # (Auto) (0-450) /uL Baso # (Auto) (0-100) /uL PT (10.1-12.7) SECONDS INR (0.9-1.3) APTT (26.4-36.2) SECONDS Sodium (137-145) mmol/L Potassium (3.4-5.1) mmol/L Chloride (98-107) mmol/L Carbon Dioxide (22-32) mmol/L BUN (7-17) mg/dL Creatinine (0.52-1.04) mg/dL Estimated GFR (>60) mL/min BUN/Creatinine Ratio (6-22) Glucose (80-110) mg/dL Calcium (8.4-10.2) mg/dL Total Bilirubin (0.2-1.3) mg/dL AST (14-36) IU/L ALT (<35) IU/L Alkaline Phosphatase (38-126) U/L Total Creatine Kinase (30-135) U/L CK-MB (CK-2) CK-MB (CK-2) Rel Index Troponin I (0.01-0.034) ng/mL NT-Pro-B Natriuret Pep 86 (<125) pg/mL Total Protein (6.3-8.2) g/dL Albumin (3.5-5.0) g/dL Globulin (1.7-4.1) g/dL Albumin/Globulin Ratio (1.0-2.8) U Opiates 300ng/mL cut Negative (Negative) Ur Oxycodone Screen Negative (Negative) Urine Methadone Screen Negative (Negative) Ur Barbiturates Screen Negative (Negative) U Tricyclic Antidepress Negative (Negative) Ur Phencyclidine Scrn Negative (Negative) Ur Amphetamines Screen Negative (Negative) U Methamphetamines Scrn Negative (Negative) Ur MDMA Scrn (Ecstasy) Negative (Negative) U Benzodiazepines Scrn Negative (Negative) Urine Cocaine Screen Negative (Negative) U Marijuana (THC) Screen Negative (Negative) Urine Dip Bedside Urine Glucose Negative Bedside Urine Bilirubin - Negative Bedside Urine Ketone - Negative Urine Specific [place]lyn 1.015 Bedside Urine Occult Blood - Negative Bedside Urine pH 6.0 Bedside Urine Protein - Negative Bedside Urine Urobilinogen - Negative Bedside Urine Nitrite - Negative Bedside Urine Leukocytes - Negative Esterase Imaging Data CT scan - head: Radiologist's Impression: PROCEDURE: CT HEAD/BRAIN WO CON INDICATIONS: confusion dizziness, headache TECHNIQUE: Noncontrast 4.5 mm thick angled axial sections acquired from the foramen magnum to the vertex, with coronal and sagittal reformats. For radiation dose reduction, the following was used: automated exposure control, adjustment of mA and/or kV according to patient size. COMPARISON: [facility], CT, HEAD WITHOUT CONTRAST, 08/30/2014, 19:23. [facility], CT, HEAD WITHOUT CONTRAST, 09/02/2014, 8:51. [facility], CT, CT ANGIO HEAD AND NECK, 05/12/2020, 14:47. [facility], CT, HEAD WITHOUT CONTRAST, 03/07/2017, 2:29. FINDINGS: Image quality: Excellent. CSF spaces: Basal cisterns are patent. No extra-axial fluid collections. The ventricles are symmetric in size and shape. Brain: There is a remote right posterior cerebral hemisphere infarction seen, which is similar to 2018. No intracranial bleeds or masses. There is cerebral volume loss for age, with resultant ventricular and sulcal prominence. There are periventricular and deep white matter chronic small vessel ischemic changes. There is intracranial internal carotid artery atherosclerosis. Skull and face: Calvarium and visualized facial bones appear intact, without suspicious lesions. Sinuses: Visualized sinuses and mastoids are clear. IMPRESSION: No acute intracranial process is seen. Remote right posterior cerebral hemisphere infarction, which is not significantly changed compared to 2018. Dictated by: Arley Mcintyre M.D. on 05/22/2020 at 16:52 ECG Data Attestation: I personally reviewed and interpreted this ECG as follows: Prior ECG tracings: available for review Interpretation: Normal sinus rhythm rate 102 p.r. interval 156 QRS [address] changes MDM Narrative Medical decision making narrative: Patient has had almost complete stroke workup over the last 1 week however on sure that she has had an echocardiogram. The friend was on the phone with her primary care provider and I was unable to speak with the primary care provider, however MRI according to them is normal. This is when I learned meclizine was increased. Patient's symptoms have resolved. Today she did not have any extremity weakness or speech difficulty but was quite confused. She took meclizine early this morning around 8:00 a.m. and around noon started having confusion. According to the daughter she apparently does have a history of embolic stroke. Jose Ramon LIAO accepts for obs Discharge Plan Departure Patient Disposition: Admitted as Observation Clinical Impression: Transient cerebral ischemia Qualifiers: Transient cerebral ischemia type: other Qualified Code(s): G45.8 - Other transient cerebral ischemic attacks and related syndromes Admit Date/Time: 05/22/20 19:53 Admit Provider: Camryn Luna
[2020-05-22 18:46] LABS: INR 1.1 (0.9-1.3); Prothrombin Time 12.8 SECONDS (10.1-12.7)
[2020-05-22 18:48] LABS: PTT Partial Thromboplastin Tim 29 SECONDS (26.4-36.2)
[2020-05-22 18:49] LABS: Alanine Aminotransferase 20 IU/L (<35); Albumin 4.4 g/dL (3.5-5.0); Albumin Globulin Ratio 1.4 (1.0-2.8); Alkaline Phosphatase 63 U/L (38-126); Aspartate Aminotransferase 23 IU/L (14-36); BUN Creatinine Ratio 20.5 (6-22); Bilirubin Total 0.5 mg/dL (0.2-1.3); Blood Urea Nitrogen 15 mg/dL (7-17); Carbon Dioxide 27 mmol/L (22-32); Chloride 104 mmol/L (98-107); Creatine Kinase 51 U/L (30-135); Estimated Glomerular Filt Rate > 60.0 mL/min (>60); Globulin 3.1 g/dL (1.7-4.1); Glucose 123 mg/dL (80-110); HEMOLYSIS < 15 (0-50); Potassium 3.8 mmol/L (3.4-5.1); Sodium 140 mmol/L (137-145); Total Protein 7.5 g/dL (6.3-8.2)
[2020-05-22 19:01] LABS: Troponin I < 0.012 ng/mL (0.01-0.034)
[2020-05-22 19:40] LABS: UR Morphine/Opiate cutoff 300 Negative (Negative); Ur Creatinine Normal (Normal); Ur Specific Gravity Normal (Normal); Urine Amphetamines Negative (Negative); Urine Barbiturates Negative (Negative); Urine Benzodiazepines Negative (Negative); Urine Cocaine Negative (Negative); Urine MDMA Negative (Negative); Urine Methadone Negative (Negative); Urine Methamphetamines Negative (Negative); Urine Oxycodone Negative (Negative); Urine Phencyclidine Negative (Negative); Urine Tetrahydrocannabinol Negative (Negative); Urine Tricyclic Antidepressant Negative (Negative); Urine pH Normal (Normal)
[2020-05-22 21:05] LABS: NT-proBNP (BNP-Adult 18+) 86 pg/mL (<125)
[2020-05-22 21:36] LABS: COVID19 - ADMIT (NP swab/PCR) Negative (Negative)
--- NOTE | 2020-05-22 22:17 | PC.NURSE ---
Pt arrived from ED. Alert/oriented SpO2 97% RA Pt states that she still has a fuzzy head. HL RAC intact/patent. Pt oriented to room & call system. Call light w/in reach, bed alarm on for pt safety. Continue w/plan of care.
[2020-05-23] VITALS (8 sets, daily range): BP systolic 114–137; BP diastolic 55–80; PULSE 83–93; RESP 15–18; TEMP 36.3–37.2; O2SAT 93–98
[2020-05-23] MEDS: METOPROLOL ER 25 MG TABLET PO (00:33)
--- NOTE | 2020-05-23 02:25 | PM.HP.1 ---
History of Present Illness History of Present Illness Date Patient Seen: 05/22/20 Time Patient Seen: 20:48 Chief complaint: Memory Loss, Confussion Narrative: Patient is a 75-year-old female Nelli Ramirez who presneted to the ED for dizziness with confusion. She has a history of dizziness was actually seen evaluated here last week she had ED workup which included head CT and CT angio she was discharged home and followed up with her primary care provider in [place] where she had an MRI 3 days ago ([facility]). She was getting on the [place] to be evaluated by ENT for her chronic dizziness and ear pain. Dr. Herman noted that she seemed quite confused and had difficulty sequencing events which is abnormal for her. 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 Mancera neurosurgeon @ [facility])which presented as confusion and arm weakness, HTN, hyperlipidemia, and takes thyroid replacement but unsure if she has hypothyroidism. She denies any arm weakness but does state that she was quite confused she was unable to give me an exact time. She denies any dizziness lightheadedness chest pain palpitations or shortness of breath. She has not had any fever or chills. Her PCP increased her meclizine on Friday to 50 mg. She now feels like she is clearing a bit. Upon admit patient reports that she was experiencing of foggy brain, had a hard time articulating words, finding thoughts, lost sequence of time and mild confusion. Patient notes that her anxiety has been quite high in response to the symptoms based on her previous history and experience, once on the floor patient reports that all the symptoms have resolved except for the dizziness which will only occur when she gets up and walks. She currently has a mild headache denies changes in vision weakness, difficulty swallowing, shortness of breath, chest pain, numbness or tingling, difficulty with communication or speech, fever, body aches, chills, nausea, vomiting, abdominal pain. She does report heart a slight right ear ache that has been ongoing patient was evaluated by ENT today which was unremarkable. Patient is concerned that the increase in the meclizine per her primary is what has brought on the symptoms. She also discloses that she has been sleeping with her head elevated for the last 2 weeks while these events have been going on, last eye exam has been within the last year no significant change. Patient notes that she has a stent in the right carotid and is only able to obtain MRI with certain facilities. Patient's vitals upon admit temp 97.1? BP 200/97, HR 104, RR 24, O2 saturation 98% on room air (patient notes home blood pressure is 120's/70). All patient's labs are within normal limits, troponin was negative. Head CT:No acute intracranial process is seen. Remote right posterior cerebral hemisphere infarction, which is not significantly changed compared to 2018. EKG:Normal sinus rhythm rate 102 p.r. interval 156 QRS [address] changes. 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 TIA (transient ischemic attack) Surgical History (Updated 05/23/20 @ 02:48 by ROBERT Epstein) History of bilateral salpingo-oophorectomy (BSO) History of endarterectomy Status post appendectomy Status post hysterectomy Family & Social History Family History Brother Age: 70 Diabetes mellitus Hypertension High cholesterol Brother Age: 68 Heart disease Hypertension High cholesterol Father Heart disease Stroke Social History: household members Lives alone, retired, manager strategic marketing Prior Living Arrangements House Safety & Behavioral: Feels Safe in Current Yes Environment Been Physically Hurt or No Threatened By a Person Suicidal Ideation Description None Suicide Plan Description No Plan Tobacco & Substance use: Smoking Status heavy smoker that quit 40 years ago alcohol intake frequency a few times a week Substance Use Type does not use Meds Home Medications and Allergies Home Medications Medication Instructions Recorded Confirmed Type aspirin [Adult Low Dose Aspirin] 81 mg PO DAILY 06/19/19 05/22/20 History atorvastatin 10 mg PO 3XW 05/22/20 05/22/20 History ezetimibe 10 mg PO DAILY 05/22/20 05/22/20 History metoprolol tartrate 12.5 mg PO BID 05/22/20 05/22/20 History olmesartan [Benicar] 5 mg PO DAILY 05/22/20 05/22/20 History Allergies Allergy/AdvReac Type Severity Reaction Status Date / Time No Known Drug Allergies Allergy Verified 05/22/20 17:38 Review of Systems Review of Systems ROS: Yes All systems reviewed with the patient and are negative except as otherwise documented ENT Ears, Nose, Mouth, and Throat: Yes dizziness and Yes otalgia Neurologic Neurologic: Reports dizziness Exam Vital Signs (past 8 hours): - 05/22/20 18:46 05/22/20 19:00 05/22/20 19:08 Temperature Pulse Rate 104 H 107 H 110 H Respiratory Rate 24 23 20 Blood Pressure 200/97 H 186/100 H 199/87 H Pulse Oximetry 98 97 98 05/22/20 19:30 05/22/20 20:00 05/22/20 20:30 Temperature Pulse Rate 96 H 104 H 100 H Respiratory Rate 19 20 19 Blood Pressure 180/88 H 154/84 H 163/87 H Pulse Oximetry 98 96 96 05/22/20 21:00 05/22/20 21:40 05/23/20 00:33 Temperature 97.7 F Pulse Rate 97 H 93 H Respiratory Rate 20 18 Blood Pressure 187/92 H 158/93 H 131/79 Pulse Oximetry 96 94 05/23/20 00:48 Temperature 97.6 F Pulse Rate 93 H Respiratory Rate 16 Blood Pressure 137/79 Pulse Oximetry 96 Oxygen Delivery Method Room Air Oxygen Flow Rate 0 Narrative Exam Narrative: General: Patient is a well-developed, well-nourished female in no distress at this time. HEENT: Normocephalic, atraumatic, extraocular muscles intact, oral pharynx is clear and mucous membranes are moist. Neck is supple and symmetric, trachea is midline, no adenopathy, no thyroid enlargement, nontender, no masses palpated. Negative for JVD Chest: Normal AP diameter and contour without kyphoscoliosis, no nasal flaring, retractions, or tachypneic labored Lungs: Auscultation of all lung crum are clear without adventitious sounds, wheezes, rhonchi, or rales. Cardio: S1 & S2 with regular rate and rhythm without murmur, rubs, or gallops, no carotid bruit, no cardiac pulsations present. Abdomen: Soft nontender, negative for organomegaly, or masses. Bowel sounds are present in all 4 quadrants without guarding or rebound, no CVA tenderness. Musculoskeletal: Muscle strength and tone are equal within normal limits, no deformity, crepitus, effusions, cyanosis, clubbing or edema present. Full range of motion intact radial and pedal pulses are normal. Skin: Warm dry and intact without rashes, ulcerations or petechiae. Neuro: Alert and orientated x3, strength is +5/5 in all extremities, sensation to touch intact, no gross deficits noted of cranial nerves. Psych: Patient has a well-kept appearance, appropriate affect, mental status attitude thought context and judgment are appropriate for age. Objective Labs Result Diagrams: 05/22/20 18:24 05/22/20 18:24 Labs: Laboratory Results - last 24 hr 05/22/20 05/22/20 05/22/20 18:24 18:24 18:24 WBC 9.3 RBC 4.73 Hgb 14.0 Hct 42.0 MCV 88.8 MCH 29.5 MCHC 33.2 RDW 13.2 Plt Count 197 Neut % (Auto) 70.5 Lymph % (Auto) 21.1 L [facility] % (Auto) 6.4 Eos % (Auto) 1.4 L Baso % (Auto) 0.6 Neut # (Auto) 6600 Lymph # (Auto) 2000 [facility] # (Auto) 600 Eos # (Auto) 100 Baso # (Auto) 100 PT 12.8 H INR 1.1 APTT 29 Sodium 140 Potassium 3.8 Chloride 104 Carbon Dioxide 27 BUN 15 Creatinine 0.73 Estimated GFR > 60.0 BUN/Creatinine Ratio 20.5 Glucose 123 H Calcium 10.0 Total Bilirubin 0.5 AST 23 ALT 20 Alkaline Phosphatase 63 Total Creatine Kinase 51 CK-MB (CK-2) TNP CK-MB (CK-2) Rel Index TNP Troponin I < 0.012 NT-Pro-B Natriuret Pep Total Protein 7.5 Albumin 4.4 Globulin 3.1 Albumin/Globulin Ratio 1.4 U Opiates 300ng/mL cut Ur Oxycodone Screen Urine Methadone Screen Ur Barbiturates Screen U Tricyclic Antidepress Ur Phencyclidine Scrn Ur Amphetamines Screen U Methamphetamines Scrn Ur MDMA Scrn (Ecstasy) U Benzodiazepines Scrn Urine Cocaine Screen U Marijuana (THC) Screen SARS-CoV-2 (PCR) 05/22/20 05/22/20 05/22/20 18:24 19:14 20:40 WBC RBC Hgb Hct MCV MCH MCHC RDW Plt Count Neut % (Auto) Lymph % (Auto) [facility] % (Auto) Eos % (Auto) Baso % (Auto) Neut # (Auto) Lymph # (Auto) [facility] # (Auto) Eos # (Auto) Baso # (Auto) PT INR APTT Sodium Potassium Chloride Carbon Dioxide BUN Creatinine Estimated GFR BUN/Creatinine Ratio Glucose Calcium Total Bilirubin AST ALT Alkaline Phosphatase Total Creatine Kinase CK-MB (CK-2) CK-MB (CK-2) Rel Index Troponin I NT-Pro-B Natriuret Pep 86 Total Protein Albumin Globulin Albumin/Globulin Ratio U Opiates 300ng/mL cut Negative Ur Oxycodone Screen Negative Urine Methadone Screen Negative Ur Barbiturates Screen Negative U Tricyclic Antidepress Negative Ur Phencyclidine Scrn Negative Ur Amphetamines Screen Negative U Methamphetamines Scrn Negative Ur MDMA Scrn (Ecstasy) Negative U Benzodiazepines Scrn Negative Urine Cocaine Screen Negative U Marijuana (THC) Screen Negative SARS-CoV-2 (PCR) Negative Assessment & Plan Assessment & Plan narrative: 1. Neuro deficits(confusion, memory loss, dizziness) acute, present on admission in the setting of patient's history of a TIA and stroke of the right parietal occipital lobe and subsequent carotid endarterectomy, likely instigated by patient's hypertension and hyperlipidemia possible mitigating factor of hypothyroidism. -differential diagnosis TIA, stroke symptoms lasting greater than 24 hours, ischemic stroke, intracranial hemorrhage, subdural hematoma, epidural hematoma, seizure, brain tumor, migraine, vertigo, hypoglycemia, Josette [place] syndrome, multiple sclerosis, aortic dissection Vital signs q.4 hours, neuro checks q.2 hours for 1st 24 hours then q.4 hours, notify provider for temp greater than 38 C, , heart rate >100 -treat systolic blood pressure>220 or diastolic blood pressure> 120 -activity bed rest until initial physical therapy assessment is performed, then mobilize JANET as guided by Physical therapy, strict fall precautions. -supplemental O2 to maintain> 94%, check capillary blood glucose q.6 hours. -Diet NPO until swallow evaluation is done, then heart healthy if cleared -fluids:NS60cc/Hr -Medications: Aspirin 325 mg p.o. q.day within 48 hours, Plavix 75 mg, atorvastatin 80 mg daily. -labs CBC with platelets, PT/PTT/INR, CMP, TSH, troponins, Lipid panel -order for d/c PT/OT/ST evaluations -diagnostics:MR though we need to verify with imaging if our MRI can be used with her carotid stent, carotid duplex and echo with bubble study tomorrow (carotid ultrasound and Doppler for vessel imaging) -discharge planning establish patient has a safe home environment if going home 2. Hypertension, essential, acute on chronic, present on admission, uncontrolled -continue patient's Benicar and metoprolol 3. Hyperlipidemia, chronic, control unknown, not present on admission -lipid levels ordered, atorvastatin 80 mg 4. Possible hypothyroidism, patient takes thyroid supplement, chronic, control unknown -have ordered TSH will evaluate Code status: Full Surrogate decision maker: Daughters: Zenaida Saba PCR: Negative VTE DVT prophylaxis: Plavix 75 mg, and SCDs Scores GCS Jefferson coma scale eye opening: Spontaneous Eda coma scale verbal response: Orientated Eda coma scale motor response: Obey commands Jefferson coma scale total score: 15 ABCD2 Age >= 60 years: yes Initial BP. Either SBP >= 140 or DBP >= 90.: yes Clinical features of the TIA: other symptoms Duration of symptoms: 10-59 minutes History of diabetes: no ABCD2 Score: 3 NIHSS Level of Conciousness: Alert, keenly responsive Ask month/age: Answers both questions correctly. Open/close eyes, close hand: Performs both tasks correctly Best gaze horizontal: Normal Visual crum: No visual loss Facial palsy: Normal symetrical movement Left arm drift: No drift for full 10 sec Right arm drift: No drift for full 10 sec Left leg drift: No drift for full 5 sec Right leg drift: No drift for full 5 sec Limb ataxia: Absent Sensory on face/arms/legs: Normal, no sensory loss Best language: No aphasia, normal Dysarthria: Normal Extinction or inattention: No abnormality Total NIH Stroke scale score: 0 Wells' Criteria for PE Clinical signs and symptoms of DVT: No PE is #1 Dx or equally likely: No Heart rate > 100: Yes Immobilization at least 3 days or surg in previous 4 weeks: No History of PE or DVT: Yes Hemoptysis: No Malignancy w/Treatment within 6 months or palliative: No Wells' PE Score total: 3.0
[2020-05-23 05:29] LABS: BUN Creatinine Ratio 22.7 (6-22); Blood Urea Nitrogen 17 mg/dL (7-17); Calcium 9.4 mg/dL (8.4-10.2); Carbon Dioxide 29 mmol/L (22-32); Chloride 104 mmol/L (98-107); Cholesterol 145 mg/dL (140-199); Estimated Glomerular Filt Rate > 60.0 mL/min (>60); Glucose 143 mg/dL (80-110); HDL Cholesterol 42 mg/dL (40-60); HEMOLYSIS < 15 (0-50); LDL Cholesterol Calculated 56 mg/dL (<100); Sodium 138 mmol/L (137-145); Triglycerides 233 mg/dL (35-150)
[2020-05-23 05:30] LABS: Creatine Kinase 46 U/L (30-135)
[2020-05-23 05:41] LABS: Troponin I < 0.012 ng/mL (0.01-0.034)
[2020-05-23 05:57] LABS: TSH w/ Reflex to FT4 1.75 uIU/mL (0.47-4.68)
--- NOTE | 2020-05-23 07:30 | DI.US.S_ITS ---
PROCEDURE: US CAROTID DOPPLER BI INDICATIONS: DIZZINESS TECHNIQUE: Color and pulse Doppler interrogation was performed of both carotid systems, with image documentation and velocity measurements. COMPARISON: [facility], MR, STROKE PROTOCOL, 09/02/2014, 9:45. [facility], MR, STROKE PROTOCOL, 03/07/2017, 11:20. [facility], CT, CT ANGIO HEAD AND NECK, 05/12/2020, 14:47. [facility], MR, MR STROKE, 05/23/2020, 8:16. FINDINGS: Stenosis calculations are based on SRU (Society of Radiologists in Ultrasound) criteria. Right side: Brachial blood pressure: 124/69 mm Hg. Common carotid artery peak systolic velocity: 52 cm/sec. Internal carotid artery peak systolic velocity: 83 cm/sec. Internal carotid artery end diastolic velocity: 19 cm/sec. External carotid artery peak systolic velocity: 25 cm/sec. ICA/CCA peak systolic ratio: 1.6. Miranda scale imaging description: There is a stent in the distal common carotid artery. Percent internal carotid artery stenosis: No significant stenosis. Vertebral artery: Flow direction is antegrade. Left side: Brachial blood pressure: 133/69 mm Hg. Common carotid artery peak systolic velocity: 92 cm/sec. Internal carotid artery peak systolic velocity: 81 cm/sec. Internal carotid artery end diastolic velocity: 24 cm/sec. External carotid artery peak systolic velocity: Well 6 cm/sec. ICA/CCA peak systolic ratio: 0.9 . Miranda scale imaging description: Calcified plaques at the bifurcation. Percent internal carotid artery stenosis: No significant stenosis. Vertebral artery: Flow direction is antegrade. IMPRESSION: 1. Less than 50% internal carotid artery stenosis. 2. A stent is seen in the distal right common carotid artery, which is patent. 3. Antegrade vertebral artery flow bilaterally. Dictated by: Gee Elmore M.D. on 05/23/2020 at 8:28 Approved by: Gee Elmore M.D. on 05/23/2020 at 8:44
--- NOTE | 2020-05-23 07:45 | DI.MRI.S_ITS ---
PROCEDURE: MR STROKE Pre- and post-contrast brain MRI, non-contrast brain MR angiogram, pre- and postcontrast neck MR angiogram INDICATIONS: r/o CVA TECHNIQUE: Brain: Noncontrast axial T1 spin echo, axial T2 fast spin echo, sagittal and axial FLAIR, coronal T2 fast spin echo, axial gradient echo, axial diffusion and ADC through the brain. After the administration of contrast, axial 3D VIBE of the cranial vasculature and brain. Brain MRA: Non-contrast 3-D time of flight MR angiogram, with multiple ipbpurf-shvlntujv-ytkdlpimoe (MIP) reformats performed. Neck MRA: Axial and sagittal TruFISP through the neck. Coronal dynamic MR angiogram during administration of contrast in the arterial and venous phases, with 3-dimenstional ojaqctn-dostyqqao-svbindzcie (MIP) reformats constructed from subtraction images. COMPARISON: [facility], CT, CT HEAD/BRAIN WO CON, 05/22/2020, 17:43. [facility], CT, CT ANGIO HEAD AND NECK, 05/12/2020, 14:47. FINDINGS: Image quality: Excellent. BRAIN: CSF spaces: Ventricles are normal in size and shape. Basal cisterns are patent. No extra-axial fluid collections. Brain: No intracranial bleeds or mass effects. There is mild, diffuse cerebral volume loss. There are mild periventricular and subcortical white matter chronic microvascular ischemic changes. Miranda-white matter interface is normal. Diffusion weighted images show no acute ischemic insults. Chronic right frontal and right parietal-occipital infarcts with surrounding gliosis are stable compared to prior CT scans. Brainstem appears normal. Normal intravascular flow voids are present. No abnormal intracranial enhancement. Skull and face: Calvarial marrow signal is normal. Orbits appear normal. Sinuses: Sinuses and mastoids are clear. BRAIN MR ANGIOGRAM: Anterior circulation: Intracranial internal carotid arteries are normal in size and enhancement. The flow within the paired anterior cerebral arteries is normal and symmetric. 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 The flow within the middle cerebral arteries is normal and symmetric. The anterior communicating artery is seen. No stenoses, occlusions, or aneurysms. Posterior circulation: The visualized portions of the vertebral arteries demonstrate normal caliber, and join to form a normal appearing basilar artery. The flow within the posterior cerebral arteries is normal and symmetric. Right posterior cerebral artery has a origin. No stenoses, occlusions, or aneurysms. NECK MR ANGIOGRAM: Carotids: Great vessels demonstrate a conventional anatomy as they arise from the aortic arch. The origins of the common carotid arteries appear patent. The calibers and courses of both common carotid arteries are normal. Loss of signal noted in the distal right common carotid artery/proximal left internal carotid artery related to presence of metallic endovascular stent. Endovascular stent appears patent with normal flow in the right internal carotid artery distal to the stent. Mild atherosclerotic irregularity noted in the origin of the left internal carotid artery is causes less than 50% stenosis.. Posterior circulation: Atherosclerotic plaque noted in the origin of the right internal carotid artery which causes moderate to high-grade stenosis. Origin of the left vertebral artery is fully patent. Patient is left vertebral artery dominant.. More superior portions of both vertebral arteries demonstrate normal course and caliber, and join to form a normal appearing basilar artery. Miscellaneous: Subclavian arteries appear patent. Pre-contrast images through the neck show no soft tissue abnormalities. IMPRESSION: BRAIN MRI: 1. No acute intracranial disease process. 2. No areas of acute infarction. 3. Chronic right frontal and right parietal-occipital infarcts stable compared to prior CT scans. 4. Mild, diffuse cerebral volume loss. 5. Mild periventricular and subcortical white matter chronic microvascular ischemic change. BRAIN MR ANGIOGRAM: No large vessel occlusion, vascular stenosis, vascular dissection or aneurysm. NECK MR ANGIOGRAM: 1. Less than 50% stenosis of the origin of the left internal carotid artery. 2. Status post placement of right common carotid artery/right internal carotid artery endovascular stent. There is normal flow distal to the stent in the right internal carotid artery indicating stent patency. 3. 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 4. Left vertebral artery is fully patent. Dictated by: Shira Levine MD, PhD on 05/23/2020 at 9:30 Approved by: Shira Levine MD, PhD on 05/23/2020 at 9:39
[2020-05-23] MEDS: LORazepam 2 MG/ML INJ 1 MG IV (07:56)
[2020-05-23] MEDS: DOCUSATE 100 MG CAPSULE PO (08:10)
[2020-05-23] MEDS: EZETIMIBE 10 MG TABLET PO (08:10)
[2020-05-23] MEDS: CLOPIDOGREL 75 MG TABLET PO (08:10)
[2020-05-23] MEDS: METOPROLOL IR 25 MG TABLET 12.5 MG PO (08:10)
[2020-05-23] MEDS: ASPIRIN EC 325 MG TABLET PO (08:10)
[2020-05-23] MEDS: OLMESARTAN 5 MG TABLET PO (08:10)
--- NOTE | 2020-05-23 10:21 | PT.IIE ---
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 TIA (transient ischemic attack) Physical Therapy Inpatient Evaluation/Re-Eval M1 PT/OT-IP Prior Functional Status Start: 05/23/20 12:26 Freq: NEEDED Status: Active Protocol: Document 05/23/20 10:21 AB (Rec: 05/23/20 12:41 AB [id number]) Medical Review Prior Functional Status Medical History Reviewed Yes Communication able to make needs known Mobility and Gait pt stated that she is modified independent with all mobilities and ambulation without AD but occasionally uses her walking stick when she goes outdoors for a walk Social History Household Members other Living Arrangements House Number of Floors (Floors) Two Floors Number of Stairs To Enter/Railing? 2 steps with L rail to enter 12 steps with L rail to get to 2nd level bedroom Home Environment High Toilet,Walk in Shower, Built-In Shower Seat Home Equipment Hand Held Shower,Grab Bars In Shower Additional Social History Comment pt has an adjustable bed has a walking stick stated that her friend calls and checks on her M2 PT-IP Current Condition Start: 05/23/20 12:26 Freq: NEEDED Status: Active Protocol: Document 05/23/20 10:21 AB (Rec: 05/23/20 12:41 AB [id number]) Physical Therapy Current Condition Current Condition Evaluation Date 05/23/20 Treatment Diagnosis dizziness, confusion; difficulty in walking Onset Date 05/22/20 M3 PT-IP Subjective Start: 05/23/20 12:26 Freq: NEEDED Status: Active Protocol: Document 05/23/20 10:21 AB (Rec: 05/23/20 12:41 AB [id number]) Subjective Physical Therapy Visit Type Type Initial Evaluation Visit Start Time 10:21 Visit Stop Time 10:50 Total Visit Minutes 31 Number of BUSINESS DEVELOPMENT AGENT Visits 0 Physical Therapy Visit Comments Patient Comments pt is agreeable to do PT Therapy Pain Assessment Pain Present Pain Present Denied Pain M4 PT-IP Mobility and Gait Start: 03/30/21 12:26 Freq: NEEDED Status: Active Protocol: Document 05/23/20 10:21 AB (Rec: 05/23/20 12:41 AB [id number]) PT-Bed Mobility Assessment Supine to Sit Supine to Sit Standby Assistance Sit to Supine Sit to Supine Standby Assistance Scooting Scooting to Edge of Bed Standby Assistance Scooting Up and Down in Bed Standby Assistance PT-Transfer Assessment Sit to and From Stand Sit to and from Stand Standby Assistance Equipment Transfer Assistive Device None,Gait Belt Comments Mobility Comments pt was just with YOKER and getting back to bed. PT took over. pt completed sit to supine SBA. obtained PLOF and home set up. pt agreed to mobilize with PT. completed supine to sit SBA. ambulated in room without AD SBA ~ 20 ft . presents with lateral trunk lean to the R. pt stated that she has chronic hip pain. agreed to ambulate in the hallway and completed 100 ft. completed up/down 3 steps using L rail step through pattern SBA. unsteady with descending and educated on safety. completed stairs again but this time with step to pattern for descending for safety using L rail. pt ambulated back to her room. requested to go back to bed and completed sit to supine SBA. positioned in bed. call light and table placed within reach. Pt informed PT that she had dizziness for ~ 1 week and that the doctor prescribed meclizine but dizziness is still on going. informed pt to observe and asked PCP regarding seeing vestibular therapist on an outpt setting. pt agreed. Gait Assessment Gait Gait Assistance Required: Standby Assistance Distance (Feet) 100 Able to Maintain Weight Bearing Status Yes During Gait Assistive Devices Assistive Device None,Gait Belt Orthotic/Prosthetic Devices or Brace: No Gait Deviations General Gait Pattern Antalgic,Decreased Stride Length,Decreased Feet Clearance,Flexed Trunk Factors Limiting Gait Function Factors Limiting Gait Function Decreased Activity Tolerance, Decreased Strength,Poor Balance,Poor Safety Awareness Comments Gait Comments pt requires SBA with ambulation without AD. presents with unsteady gait but without LOB. Stair Climbing Assessment Evaluation Level of Assist On Stairs Standby Assistance Devices Stair Climbing Assistive Devices Left Railing Technique/Endurance Stair Climbing Direction Ascend and Descend Stair Climbing Technique Step Over Step,Step to Step Number of Steps Climbed 3 Query Text: Stair Climbing Set # Repetitions (reps) 2 Comments Stair Climbing Comments pls refer to mobility section for details PT-Balance Assessment Sitting Balance and Reactions Static Sitting Balance Ability Good Dynamic Sitting Balance Ability Good Standing Balance and Reactions Static Standing Balance Ability Good Dynamic Standing Balance Ability Fair Device Used without AD M5 PT-IP Objective Assessments Start: 05/23/20 12:26 Freq: NEEDED Status: Active Protocol: Document 05/23/20 10:21 AB (Rec: 05/23/20 12:41 AB [id number]) Orientation Orientation/Cognition Level of Alertness Alert Orientation Name,Place,Situation Language Function Ability No Deficits Noted Safety Awareness Understands Safety Issues Gross Range of Motion Lower Extremity ROM Assessment Within Functional Limits Strength Lower Extremity Strength Assessment Within Functional Limits Muscle Tone Muscle Tone WNL Yes M6 PT-IP Treatment Start: 05/23/20 12:26 Freq: NEEDED Status: Active Protocol: Document 05/23/20 10:21 AB (Rec: 05/23/20 12:41 AB [id number]) Physical Therapy Treatment Education Education Provided Safety M7 PT-IP Assessment and Plan Start: 05/23/20 12:26 Freq: NEEDED Status: Active Protocol: Document 05/23/20 10:21 AB (Rec: 05/23/20 12:41 AB [id number]) PT Summary Assessment and Plan Potential Rehabilitation Potential Good Status of Condition at Evaluation Stable Summary Impairments Pain,ROM,Strength,Balance, Coordination,Bed Mobility, Transfers,Gait,Activity Tolerance Assessment Summary pt requiring SBA with mobility without AD. pt with dizziness for ~ 1 week affecting mobility. informed pt regarding possible assessment for vestibular therapy on outpt basis and agreed if condition does not improve. will continue to assess progress. Goals Bed Mobility Goal Independent Transfer Goal Independent Gait Goal Independent Gait Distance 200 Other Goals up/down 12 steps L rail ascending mod I Days to Meet Goals 3 Frequency of Treatment Frequency Of Treatment Once a Day Treatment Plan Physical Therapy Treatment Plan Bed Mobility Training,Transfer Training,Gait Training, Therapeutic Exercise,Balance Retraining,Discharge Planning, Neuromuscular Re-ed, Coordination Retraining Other Recommendations and Next Treatment balance/ambulation training Focus and stair training Recommendations To Nursing Amount of Assist Needed Standby Assistance Discharge Recommendations PT Discharge Recommendations Home,Outpatient PT Transportation Needs at Discharge Private Vehicle
--- NOTE | 2020-05-23 10:37 | PC.NURSE ---
Addendum entered by Carine Segovia R.N. 05/23/20 11:05: Patel office from [facility] called for an update on patient. This has been given. Original Note: Patient given ativan before her MRI, this went well for her. She is a one person assist as she is unsteady and wabbly on her feet. Patient denies dizziness this morning. Awaiting results of MRI.
--- NOTE | 2020-05-23 11:55 | CM.DANOTE ---
Patient is 75 yo F with Medicare and [employer] insurance, admitted to hospital due to memory loss, dizziness and confusion. Patient was in ER last week for CT and CT angio due to dizziness and was discharged home. Patient reported that she met with her ENT and ENT brought her to ED due to her dizziness and confusion. black leather buffer met bedside with patient and patient's ex Garth, who is ongoing support. Patient reports that she lives alone on [address], drives independently and her daughters are 1.5-2 hours away and they can be a support as well. Patient reported that she had an MRI at 0830 and is awaiting results. Patient reported that she had CAR CLEANER yesterday and there was no concerns and she just had PT today and it went well. Patient reported that she is not back to her normal baseline but moving around more. Patient reported that she has been hospitalized before. Patient reported no history of HH. black leather buffer will follow up after MRI, PT and CAR CLEANER recommendations. Patient requested medical records. KHARI Faye Discharge Planning/Care Management Advanced directive, confirm from FAMILY Start: 05/22/20 21:56 Freq: Q24H Status: Active Protocol: Document 05/22/20 22:13 KMD (Rec: 05/22/20 22:14 KMD [id number]) Advance Directive, confirm on record Time 22:13 Person contacted Patient Copy received No CM Discharge Assessment Start: 05/23/20 11:48 Freq: Status: Active Protocol: Document 05/23/20 11:49 LN (Rec: 05/23/20 11:55 LN [id number]) Discharge Planning Assessment Assigned Cash Posting Clerk KHARI Faye DPOA/Assigned Designee Name rip Cai and Zenaida Quesada Advance Directives? Yes History Provided By Patient Has Patient been admitted in last 30 No days? Prior Living Arrangements House Household Members other Type of transporation used prior to Drives own vehicle admit Independent with ADL's Yes Is patient alert and oriented? Yes Please Provide Date Initial DC 05/23/20 Assessment Was Performed
--- NOTE | 2020-05-23 16:00 | P.DS_ITS ---
History of Present Illness History of Present Illness Date Patient Seen: 05/23/20 Chief complaint: Memory Loss, Confussion Narrative: Patient is a 75-year-old female Nelli Ramirez who presneted to the ED for dizziness with confusion. She has a history of dizziness was actually seen evaluated here last week she had ED workup which included head CT and CT angio she was discharged home and followed up with her primary care provider in [place] where she had an MRI 3 days ago ([facility]). She was getting on the [place] to be evaluated by ENT for her chronic dizziness and ear pain. Dr. Herman noted that she seemed quite confused and had difficulty sequencing events which is abnormal for her. 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 Mancera neurosurgeon @ [facility])which presented as confusion and arm weakness, HTN, hyperlipidemia, and takes thyroid replacement but unsure if she has hypothyroidism. She denies any arm weakness but does state that she was quite confused she was unable to give me an exact time. She denies any dizziness lightheadedness chest pain palpitations or shortness of breath. She has not had any fever or chills. Her PCP increased her meclizine on Friday to 50 mg. She now feels like she is clearing a bit. Upon admit patient reports that she was experiencing of foggy brain, had a hard time articulating words, finding thoughts, lost sequence of time and mild confusion. Patient notes that her anxiety has been quite high in response to the symptoms based on her previous h istory and experience, once on the floor patient reports that all the symptoms have resolved except for the dizziness which will only occur when she gets up and walks. She currently has a mild headache denies changes in vision weakness, difficulty swallowing, shortness of breath, chest pain, numbness or tingling, difficulty with communication or speech, fever, body aches, chills, nausea, vomiting, abdominal pain. She does report heart a slight right ear ache that has been ongoing patient was evaluated by ENT today which was unremarkable. Patient is concerned that the increase in the meclizine per her primary is what has brought on the symptoms. She also discloses that she has been sleeping with her head elevated for the last 2 weeks while these events have been going on, last eye exam has been within the last year no significant change. Patient notes that she has a stent in the right carotid and is only able to obtain MRI with certain facilities. Patient's vitals upon admit temp 97.1? BP 200/97, HR 104, RR 24, O2 saturation 98% on room air (patient notes home blood pressure is 120's/70). All patient's labs are within normal limits, troponin was negative. Head CT:No acute in tracranial process is seen. Remote right posterior cerebral hemisphere infarction, which is not significantly changed compared to 2018. EKG:Normal sinus rhythm rate 102 p.r. interval 156 QRS [address] changes. Discharge Providers Provider Date of admission: 05/22/20 19:53 Discharge Date: 05/23/20 Primary care physician: Lo Brown MD Consults: 05/22/20 20:39 Consult to Physical Therapy Evaluate & Treat Comment: Dizziness Physician Instructions: Evaluate and Treat Discharge provider: Rosalba De Guzman MD Summary Hospital Course Discharge Diagnosis: 1. Benign positional vertigo, cause of dizziness present on admission 2. Transient ischemic attack, history thereof 3. History of stroke, secondary to a carotid artery embolism, status post common carotid artery stent placement 4. Hypertension 5. Hyperlipidemia Hospital Course: Patient was admitted to the hospital for evaluation of dizziness. The patient had associated confusion as well as dizziness. She was evaluated for possible TIA. MRI findings are as follows No acute intracranial disease process.2. No areas of acute infarction. 3. Chronic right frontal and right parietal-occipital infarcts stable compared to priorCT scans.4. Mild, diffuse cerebral volume loss.5. Mild periventricular and subcortical white matter chronic microvascular ischemicchange. BRAIN MR ANGIOGRAM: No large vessel occlusion, vascular stenosis, vascular dissection or aneurysm.NECK MR ANGIOGRAM: 1. Less than 50% stenosis of the origin of the left internal carotid artery.2. Status post placement of right common carotid artery/right internal carotid arteryendovascular stent. There is normal flow distal to the stent in the right internalcarotid artery indicating stent patency.3. 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 4. Left vertebral artery is fully patent. Patient discontinued her meclizine. She reported dizziness improved. Patient was able to be seen by physical therapy and occupational therapy. She was able to ambulate up stairs without difficulty. She fell her dizziness has almost resolved. Patient was deemed appropriate for discharge and arrangements will be made for to discharge home. She will be referred to the outpatient physical therapy clinic for training on Neftaly maneuvers. Status at Discharge Cognitive/behavioral status at discharge: oriented Functional status at discharge: independent ambulation Overall status at discharge: patient is back to baseline Time Spent with Patient Time spent: Less than 30 minutes Exam Vital Signs (past 8 hours): - 05/23/20 11:18 05/23/20 15:42 Temperature 98.9 F 98.0 F Pulse Rate 86 85 Respiratory Rate 16 18 Blood Pressure 122/55 L 114/80 Pulse Oximetry 93 98 Oxygen Delivery Method Room Air Oxygen Flow Rate 0 Narrative Exam Narrative: Pleasant female in no obvious distress Lungs: Clear to auscultation Cardiac exam: Regular rate and rhythm normal S1-S2 Abdomen: Soft nontender NIH stroke scale score 0 Neuro exam nonfocal Objective Labs Result Diagrams: 05/22/20 18:24 05/23/20 04:50 Labs: Laboratory Results - last 24 hr 05/22/20 05/22/20 05/22/20 18:24 18:24 18:24 WBC 9.3 RBC 4.73 Hgb 14.0 Hct 42.0 MCV 88.8 MCH 29.5 MCHC 33.2 RDW 13.2 Plt Count 197 Neut % (Auto) 70.5 Lymph % (Auto) 21.1 L [place] % (Auto) 6.4 Eos % (Auto) 1.4 L Baso % (Auto) 0.6 Neut # (Auto) 6600 Lymph # (Auto) 2000 [place] # (Auto) 600 Eos # (Auto) 100 Baso # (Auto) 100 PT 12.8 H INR 1.1 APTT 29 Sodium 140 Potassium 3.8 Chloride 104 Carbon Dioxide 27 BUN 15 Creatinine 0.73 Estimated GFR > 60.0 BUN/Creatinine Ratio 20.5 Glucose 123 H Calcium 10.0 Total Bilirubin 0.5 AST 23 ALT 20 Alkaline Phosphatase 63 Total Creatine Kinase 51 CK-MB (CK-2) TNP CK-MB (CK-2) Rel Index TNP Troponin I < 0.012 NT-Pro-B Natriuret Pep Total Protein 7.5 Albumin 4.4 Globulin 3.1 Albumin/Globulin Ratio 1.4 Triglycerides Cholesterol LDL Cholesterol, Calc HDL Cholesterol TSH U Opiates 300ng/mL cut Ur Oxycodone Screen Urine Methadone Screen Ur Barbiturates Screen U Tricyclic Antidepress Ur Phencyclidine Scrn Ur Amphetamines Screen U Methamphetamines Scrn Ur MDMA Scrn (Ecstasy) U Benzodiazepines Scrn Urine Cocaine Screen U Marijuana (THC) Screen SARS-CoV-2 (PCR) 05/22/20 05/22/20 05/22/20 18:24 19:14 20:40 WBC RBC Hgb Hct MCV MCH MCHC RDW Plt Count Neut % (Auto) Lymph % (Auto) Mes[place] % (Auto) Eos % (Auto) Baso % (Auto) Neut # (Auto) Lymph # (Auto) [place] # (Auto) Eos # (Auto) Baso # (Auto) PT INR APTT Sodium Potassium Chloride Carbon Dioxide BUN Creatinine Estimated GFR BUN/Creatinine Ratio Glucose Calcium Total Bilirubin AST ALT Alkaline Phosphatase Total Creatine Kinase CK-MB (CK-2) CK-MB (CK-2) Rel Index Troponin I NT-Pro-B Natriuret Pep 86 Total Protein Albumin Globulin Albumin/Globulin Ratio Triglycerides Cholesterol LDL Cholesterol, Calc HDL Cholesterol TSH U Opiates 300ng/mL cut Negative Ur Oxycodone Screen Negative Urine Methadone Screen Negative Ur Barbiturates Screen Negative U Tricyclic Antidepress Negative Ur Phencyclidine Scrn Negative Ur Amphetamines Screen Negative U Methamphetamines Scrn Negative Ur MDMA Scrn (Ecstasy) Negative U Benzodiazepines Scrn Negative Urine Cocaine Screen Negative U Marijuana (THC) Screen Negative SARS-CoV-2 (PCR) Negative 05/23/20 05/23/20 05/23/20 04:50 04:50 04:50 WBC RBC Hgb Hct MCV MCH MCHC RDW Plt Count Neut % (Auto) Lymph % (Auto) Mesa % (Auto) Eos % (Auto) Baso % (Auto) Neut # (Auto) Lymph # (Auto) [place] # (Auto) Eos # (Auto) Baso # (Auto) PT INR APTT Sodium 138 Potassium 4.0 Chloride 104 Carbon Dioxide 29 BUN 17 Creatinine 0.75 Estimated GFR > 60.0 BUN/Creatinine Ratio 22.7 H Glucose 143 H Calcium 9.4 Total Bilirubin AST ALT Alkaline Phosphatase Total Creatine Kinase 46 CK-MB (CK-2) TNP CK-MB (CK-2) Rel Index TNP Troponin I < 0.012 NT-Pro-B Natriuret Pep Total Protein Albumin Globulin Albumin/Globulin Ratio Triglycerides 233 H Cholesterol 145 LDL Cholesterol, Calc 56 HDL Cholesterol 42 TSH 1.75 U Opiates 300ng/mL cut Ur Oxycodone Screen Urine Methadone Screen Ur Barbiturates Screen U Tricyclic Antidepress Ur Phencyclidine Scrn Ur Amphetamines Screen U Methamphetamines Scrn Ur MDMA Scrn (Ecstasy) U Benzodiazepines Scrn Urine Cocaine Screen U Marijuana (THC) Screen SARS-CoV-2 (PCR) [facility] Medical History (Updated 05/23/20 @ 02:48 by Camryn Luna [facility]) History of common carotid artery stent placement Hyperlipidemia Hypertension Right knee pain 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 History of bilateral salpingo-oophorectomy (BSO) History of endarterectomy Status post appendectomy Status post hysterectomy Family History Brother Age: 70 Diabetes mellitus Hypertension High cholesterol Brother Age: 68 Heart disease Hypertension High cholesterol Father Heart disease Stroke Social History household members: other Smoking Status: Never smoker Discharge Assessment & Plan Assessment and Plan Assessment: 1. Dizziness, suspect benign positional vertigo 2. History of TIA 3. History of stroke secondary to carotid artery embolism, status post carotid artery stent placement 4. Hyperlipidemia 5. Hypertension Plan of Treatment: Discharge home Patient will follow-up as an outpatient with physical therapy for ongoing treatment Discharge Plan Discharge Plan Patient Disposition: Home Discharge orders & Medications Prescriptions: Continued metoprolol tartrate 25 mg Tablet 12.5 mg PO BID RF: 0 ezetimibe 10 mg Tablet 10 mg PO DAILY RF: 0 atorvastatin 10 mg Tablet 10 mg PO 3XW RF: 0 olmesartan [Benicar] 5 mg Tablet 5 mg PO DAILY RF: 0 aspirin [Adult Low Dose Aspirin] 81 mg Tablet,Delayed Release (Dr/Ec) 81 mg PO DAILY RF: 0 Follow up/Referrals: Lo Brown MD [Primary Care Provider] - Discharge Health Status Multidrug resistant organism: No MDRO Diet/Activity/Treatments Diet: Low-fat and Low-sodium Activity: as tolerated Discharge Data Primary Care Provider: Lo Brown Attending Provider: Camryn Luna
--- NOTE | 2020-05-23 16:59 | PC.NURSE ---
Discharge Note Patient A&O, VSS, RA 98%. No complaints of pain/discomfort. Neuro within patients baseline, no changes this shift. Discharge packet reviewed with patient by this RN, no questions/concerns. PIV/Tele discontinued. All belongings packed and given to patient along with discharge packet. No medications in pharmacy or belongings in the safe. Patient able to dress self. Patient taken down via wheelchair to POV.
== END 2020-05-23 17:00 | disposition home or self-care (01) ==
LOC: ED 19:52 → AC 19:54
PROVIDERS: Admitting Provider Nurse Practitioner Family; Emergency Provider Emergency Medicine; Family Provider Internal Medicine Endocrinology, Diabetes & Metabolism; PCP Internal Medicine; Visit Provider Nurse Practitioner Family
DX: H81.10 Benign paroxysmal vertigo, unspecified ear (principal); R51.9 Headache, unspecified; R41.0 Disorientation, unspecified; I10 Essential (primary) hypertension; E78.5 Hyperlipidemia, unspecified; Z86.73 Personal history of transient ischemic attack (TIA), and cerebral infarction without residual deficits; Z95.5 Presence of coronary angioplasty implant and graft; Z20.822 Contact with and (suspected) exposure to COVID-19
CPT/HCPCS: 36415; 70450; 70548; 70553; 80048; 80053; 80061; 80305; 81003; 82550; 82962; 83880; 84443; 84484; 85025; 85610; 85730; 87635; 93005; 93880; 96374; 97161; 99284; G0378; J2060

== ENCOUNTER → 2020-11-17 11:20 | Outpatient (CLI) | payer MEDICARE, SELFPAY ==
[2020-05-22 21:02] VITALS: BMI 33.0
[2020-11-17 13:28] LABS: TSH w/ Reflex to FT4 0.64 uIU/mL (0.47-4.68)
== END ==
PROVIDERS: Family Provider Internal Medicine Endocrinology, Diabetes & Metabolism; PCP Internal Medicine; Referring Provider Internal Medicine; Visit Provider Internal Medicine
DX: E03.9 Hypothyroidism, unspecified (principal)
CPT/HCPCS: 36415; 84443

== ENCOUNTER → 2020-12-03 09:23 | Outpatient (CLI) | payer MEDICARE, SELFPAY ==
[2020-05-22 21:02] VITALS: BMI 33.0
== END ==
PROVIDERS: Family Provider Internal Medicine Endocrinology, Diabetes & Metabolism; PCP Internal Medicine; Visit Provider Nurse Practitioner Family
DX: R30.9 Painful micturition, unspecified (principal)
CPT/HCPCS: 87077; 87086; 87186

== ENCOUNTER → 2021-01-19 12:53 | Outpatient (CLI) | payer MEDICARE, SELFPAY ==
[2020-05-22 21:02] VITALS: BMI 33.0
[2021-01-19 13:24] LABS: COVID19 -Nasal RAPID Negative (Negative)
== END ==
PROVIDERS: Family Provider Internal Medicine Endocrinology, Diabetes & Metabolism; PCP Internal Medicine; Visit Provider Nurse Practitioner Family
DX: Z20.822 Contact with and (suspected) exposure to COVID-19 (principal)
CPT/HCPCS: 87635

== ENCOUNTER → 2021-07-13 12:19 | Outpatient (CLI) | payer MEDICARE, SELFPAY ==
[2020-05-22 21:02] VITALS: BMI 33.0
== END ==
PROVIDERS: Family Provider Internal Medicine Endocrinology, Diabetes & Metabolism; PCP Internal Medicine; Visit Provider Nurse Practitioner Family
DX: R30.0 Dysuria (principal); N89.8 Other specified noninflammatory disorders of vagina
CPT/HCPCS: 87077; 87086; 87186; 87210

== ENCOUNTER → 2021-08-14 16:52 | Outpatient (CLI) | payer MEDICARE, SELFPAY ==
[2020-05-22 21:02] VITALS: BMI 33.0
== END ==
PROVIDERS: Family Provider Internal Medicine Endocrinology, Diabetes & Metabolism; PCP Internal Medicine; Visit Provider Physician Assistant
DX: N39.0 Urinary tract infection, site not specified (principal); N89.8 Other specified noninflammatory disorders of vagina
CPT/HCPCS: 87077; 87086; 87186; 87210

== ENCOUNTER 2021-09-03 14:17 | Emergency (ER) | payer MEDICARE, SELFPAY ==
[2020-05-22 21:02] VITALS: BMI 33.0
[2021-09-03 14:25] VITALS: BMI 32.1
[2021-09-03 15:01] VITALS: BP 138/77; PULSE 91; RESP 20; O2SAT 96
--- NOTE | 2021-09-03 15:07 | DI.RAD.S_ITS ---
PROCEDURE: XR CHEST 1V INDICATIONS: Possible stroke TECHNIQUE: One view of the chest was acquired. COMPARISON: [facility], , CHEST 2 VIEW, 05/02/2016, 10:38. FINDINGS: Surgical changes and devices: None. Lungs and pleura: Lungs are clear. No pleural effusions or pneumothorax. Mediastinum: Mediastinal contours appear normal. Heart size is normal. Bones and chest wall: No suspicious bony lesions. Overlying soft tissues appear unremarkable. IMPRESSION: No acute cardiopulmonary findings. Dictated by: Yesenia Jennings M.D. on 09/03/2021 at 15:21 Approved by: Yesenia Jennings M.D. on 09/03/2021 at 15:21
[2021-09-03 15:14] LABS: Add Manual Diff / Slide Review NO; Basophils Absolute Auto 0 /uL (0-100); Basophils Percent Auto 0.4 % (0-2); Eosinophils Absolute Auto 100 /uL (0-450); Eosinophils Percent Auto 1.1 % (2-4); Hematocrit 40.8 % (36-46); Hemoglobin 13.7 g/dL (12.0-16.0); Lymphocytes Absolute Auto 2600 /uL (1100-4500); Lymphocytes Percent Auto 28.2 % (25-40); Mean Corpuscular HGB Conc 33.6 % (30-36); Mean Corpuscular Hemoglobin 29.3 PG (26-34); Mean Corpuscular Volume 87.3 fL (80-100); Monocytes Absolute Auto 700 /uL (0-900); Monocytes Percent Auto 7.7 % (3-14); Neutrophils Absolute Auto 5800 /uL (1500-7000); Neutrophils Percent Auto 62.6 % (50-75); Platelet Count 161 X10^3/uL (150-400); Red Blood Cell Count 4.67 X10^6/uL (4.0-5.2); Red Cell Distribution Width 13.6 % (11.6-14.8); White Blood Cell Count 9.3 X10^3/uL (4.5-11.0)
[2021-09-03 15:16] LABS: Prothrombin Time 10.8 SECONDS (10.1-12.7)
[2021-09-03 15:19] LABS: PTT Partial Thromboplastin Tim 27 SECONDS (26.4-36.2)
--- NOTE | 2021-09-03 15:19 | ED.NEUROSD ---
HPI - Neuro Symptoms/Deficit General Chief Complaint: Neuro Symptoms/Deficit Stated Complaint: Hx of stroke/has a stent/feeling weird Time Seen by Provider: 09/03/21 15:09 Source: patient Mode of arrival: Ambulatory History of Present Illness HPI Narrative: Patient is a 76-year-old female with history of diabetes, TIA and stroke presenting today with 4 days of off balance. She says that sometimes when she turns her head quickly she gets little bit dizzy. She has no difficulty ambulating. She has no nausea vomiting numbness tingling weakness chest pain or palpitations. She says that she has frequent UTI she just got done taking Keflex, she thought that her symptoms may have been related to the antibiotic use and possibly due to her diabetes. Have which is what she did come in immediately. She overall feels okay but still feels a little off. On Anticoagulants: No (81mg asa) Related Data Home Medications Medication Instructions Recorded Confirmed aspirin 81 mg tablet,delayed 81 mg PO DAILY 06/19/19 07/13/21 release (Adult Low Dose Aspirin) atorvastatin 10 mg tablet 10 mg PO 3XW 05/22/20 07/13/21 ezetimibe 10 mg tablet 10 mg PO DAILY 05/22/20 07/13/21 metoprolol tartrate 25 mg tablet 12.5 mg PO BID 05/22/20 07/13/21 olmesartan 5 mg tablet (Benicar) 5 mg PO DAILY 05/22/20 07/13/21 metformin 500 mg tablet 500 mg PO BID 07/13/21 07/13/21 Previous Rx's Medication Instructions Recorded phenazopyridine 200 mg tablet 200 mg PO TID 6 doses #6 tabs 12/03/20 (Pyridium) phenazopyridine 200 mg tablet 200 mg PO TID 6 doses #6 tabs 07/13/21 (Pyridium) Allergies Allergy/AdvReac Type Severity Reaction Status Date / Time meclizine Allergy vertigo Verified 07/13/21 12:14 Review of Systems Review of Systems Narrative: GENERAL: Denies chills, fatigue, malaise, fever, sweats, travel HEENT: Denies sinus pain, ear pain, sore throat, difficulty swallowing, neck pain RESPIRATORY: Denies dyspnea, cough, wheezing, hemoptysis, sputum. CARDIOVASCULAR: Denies chest pain, palpitations, orthopnea, edema GASTROINTESTINAL: Denies nausea, vomiting, abdominal pain, diarrhea, constipation, melena. : Denies dysuria, frequency, incontinence, hematuria, urinary retention, flank pain. MUSCULOSKELETAL: Denies weakness, joint pain, or bony pain SKIN: No rash, no erythema, no pruritus NEUROLOGIC: See HPI PSYCHIATRIC: No concerning psychosocial issues. 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 TIA (transient ischemic attack) Surgical History History of bilateral salpingo-oophorectomy (BSO) History of endarterectomy Status post appendectomy Status post hysterectomy Family History Brother Age: 72 Diabetes mellitus Hypertension High cholesterol Brother Age: 70 Heart disease Hypertension High cholesterol Father Heart disease Stroke Social History household members: other Smoking Status: Never smoker Smoking Status: Never smoker alcohol intake frequency: a few times a week Substance Use Type: does not use Exam Initial Vital Signs Initial Vital Signs: Vital Signs Pulse Rate 91 H 09/03/21 15:01 Respiratory Rate 20 09/03/21 15:01 Blood Pressure 138/77 09/03/21 15:01 Pulse Oximetry 96 09/03/21 15:01 GENERAL: Pleasant alert 76-year-old female and in no acute distress. HEENT: Head atraumatic,EOMI, pupils reactive, face symmetric, moist mucous membranes CARDIOVASCULAR: Regular rate and rhythm without murmurs, rubs or gallops. RESPIRATORY: Breath sounds equal bilaterally, no wheezes rales or rhonchi. ABDOMEN: Soft, nontender. Normoactive bowel sounds all 4 quadrants. No guarding or rebound. EXTREMITIES: Normal range of motion, no clubbing or edema. Neurovascularly intact NEUROLOGICAL: Alert and oriented x4.Normal gait and speech. SKIN: Warm, dry, no laceration, no petechiae, no rashes or lesions. Scores NIH Stroke Scale Level of Conciousness: Alert, keenly responsive Ask month/age: Answers both questions correctly. Open/close eyes, close hand: Performs both tasks correctly Best gaze horizontal: Normal Visual crum: No visual loss Facial palsy: Normal symetrical movement Left arm drift: No drift for full 10 sec Right arm drift: No drift for full 10 sec Left leg drift: No drift for full 5 sec Right leg drift: No drift for full 5 sec Limb ataxia: Absent Sensory on face/arms/legs: Normal, no sensory loss Best language: No aphasia, normal Dysarthria: Normal Extinction or inattention: No abnormality Total NIH Stroke scale score: 0 Course Orders Ordered: ED Orders 09/03/21 14:38 COVID19 -Nasal RAPID/Pre-Proc Stat Complete Blood Count AUTO DIFF Stat Comprehensive Metabolic Panel Stat Magnesium Stat Partial Thromboplastin Time Stat Prothrombin Time INR Stat Troponin & CK Cardiac Panel Stat 09/03/21 15:07 XR chest 1V Stat 09/03/21 15:38 CT angio head and neck Stat Vital Signs Vital signs: Vital Signs - 8 hr 09/03/21 15:01 Pulse Rate 91 H Respiratory Rate 20 Blood Pressure 138/77 Pulse Oximetry 96 MDM - Neuro Symptoms/Deficit Lab Data Result diagrams: 09/03/21 14:38 09/03/21 14:38 Labs: Lab Results 09/03/21 09/03/21 09/03/21 Range/Units 14:38 14:38 14:38 WBC 9.3 (4.5-11.0) X10^3/uL RBC 4.67 (4.0-5.2) X10^6/uL Hgb 13.7 (12.0-16.0) g/dL Hct 40.8 (36-46) % MCV 87.3 (80-100) fL MCH 29.3 (26-34) PG MCHC 33.6 (30-36) % RDW 13.6 (11.6-14.8) % Plt Count 161 (150-400) X10^3/uL Neut % (Auto) 62.6 (50-75) % Lymph % (Auto) 28.2 (25-40) % [place] % (Auto) 7.7 (3-14) % Eos % (Auto) 1.1 L (2-4) % Baso % (Auto) 0.4 (0-2) % Neut # (Auto) 5800 (4722-9383) /uL Lymph # (Auto) 2600 (5508-5027) /uL [place] # (Auto) 700 (0-900) /uL Eos # (Auto) 100 (0-450) /uL Baso # (Auto) 0 (0-100) /uL PT 10.8 (10.1-12.7) SECONDS INR 1.0 (0.9-1.3) APTT 27 (26.4-36.2) SECONDS Sodium 135 L (137-145) mmol/L Potassium 4.0 (3.4-5.1) mmol/L Chloride 104 (98-107) mmol/L Carbon Dioxide 24 (22-32) mmol/L BUN 21 H (7-17) mg/dL Creatinine 0.75 (0.52-1.04) mg/dL Estimated GFR > 60 (>60) mL/min BUN/Creatinine Ratio 28.0 H (6-22) Glucose 184 H (80-110) mg/dL Calcium 9.3 (8.4-10.2) mg/dL Magnesium 1.7 (1.6-2.3) mg/dL Total Bilirubin 0.5 (0.2-1.3) mg/dL AST 28 (14-36) IU/L ALT 35 H (<35) IU/L Alkaline Phosphatase 50 (38-126) U/L Total Creatine Kinase 93 (30-135) U/L CK-MB (CK-2) TNP CK-MB (CK-2) Rel Index TNP Troponin I < 0.012 (0.01-0.034) ng/mL Total Protein 6.7 (6.3-8.2) g/dL Albumin 4.0 (3.5-5.0) g/dL Globulin 2.7 (1.7-4.1) g/dL Albumin/Globulin Ratio 1.5 (1.0-2.8) SARS-CoV-2 (PCR) (Negative) 09/03/21 Range/Units 14:38 WBC (4.5-11.0) X10^3/uL RBC (4.0-5.2) X10^6/uL Hgb (12.0-16.0) g/dL Hct (36-46) % MCV (80-100) fL MCH (26-34) PG MCHC (30-36) % RDW (11.6-14.8) % Plt Count (150-400) X10^3/uL Neut % (Auto) (50-75) % Lymph % (Auto) (25-40) % [place] % (Auto) (3-14) % Eos % (Auto) (2-4) % Baso % (Auto) (0-2) % Neut # (Auto) (1344-4443) /uL Lymph # (Auto) (5575-8983) /uL [place] # (Auto) (0-900) /uL Eos # (Auto) (0-450) /uL Baso # (Auto) (0-100) /uL PT (10.1-12.7) SECONDS INR (0.9-1.3) APTT (26.4-36.2) SECONDS Sodium (137-145) mmol/L Potassium (3.4-5.1) mmol/L Chloride (98-107) mmol/L Carbon Dioxide (22-32) mmol/L BUN (7-17) mg/dL Creatinine (0.52-1.04) mg/dL Estimated GFR (>60) mL/min BUN/Creatinine Ratio (6-22) Glucose (80-110) mg/dL Calcium (8.4-10.2) mg/dL Magnesium (1.6-2.3) mg/dL Total Bilirubin (0.2-1.3) mg/dL AST (14-36) IU/L ALT (<35) IU/L Alkaline Phosphatase (38-126) U/L Total Creatine Kinase (30-135) U/L CK-MB (CK-2) CK-MB (CK-2) Rel Index Troponin I (0.01-0.034) ng/mL Total Protein (6.3-8.2) g/dL Albumin (3.5-5.0) g/dL Globulin (1.7-4.1) g/dL Albumin/Globulin Ratio (1.0-2.8) SARS-CoV-2 (PCR) Negative (Negative) Urine Dip Bedside Urine Glucose Negative Bedside Urine Bilirubin - Negative Bedside Urine Ketone - Negative Urine Specific [place] 1.020 Bedside Urine Occult Blood - Negative Bedside Urine pH 5.5 Bedside Urine Protein +/- 15 Bedside Urine Urobilinogen - Negative Bedside Urine Nitrite - Negative Bedside Urine Leukocytes - Negative Esterase Imaging Data Chest x-ray: Radiologist's Impression: Signed Patient: Bryan Ramirez MR#: [id number] : 1945 Acct:[id number] Age/Sex: 76 / F Date of Service: 09/03/21 Loc: ED Accession Number: [id number] ?? Procedure: XR chest 1V Ordering Provider: Brittaney Peña D.O. PROCEDURE:? XR CHEST 1V ? INDICATIONS:? Possible stroke ? TECHNIQUE:? One view of the chest was acquired.? ? COMPARISON:? [facility], , CHEST 2 VIEW, 05/02/2016, 10:38. ? FINDINGS:? ? Surgical changes and devices:? None.? ? Lungs and pleura:? Lungs are clear.? No pleural effusions or pneumothorax.? ? Mediastinum:? Mediastinal contours appear normal.? Heart size is normal.? ? Bones and chest wall:? No suspicious bony lesions.? Overlying soft tissues appear unremarkable.? ? IMPRESSION:? No acute cardiopulmonary findings. ? ? Dictated by: Yesenia Jennings M.D. on 09/03/2021 at 15:21 ? ? Approved by: Yesenia Jennings M.D. on 09/03/2021 at 15:21 CTA - brain/neck: Radiologist's Impression: [address] [place] [address] CT Scan Report Signed Patient: Bryan Ramirez MR#: [id number] : 1945 Acct:[id number] Age/Sex: 76 / F Date of Service: 09/03/21 Loc: ED Accession Number: [id number] ?? Procedure: CT angio head and neck Ordering Provider: Brittaney Peña D.O. PROCEDURE:? CT ANGIO HEAD AND NECK ? INDICATIONS:? dizzy off balance x 4 days ? TECHNIQUE:? Pre-contrast 4.5 mm thick sections acquired from the foramen magnum to the vertex.? After the administration of intravenous contrast, 1 mm thick sections acquired from the aortic arch through the [place] of [place].? Post-contrast 4.5 mm thick sections then re-acquired from the foramen magnum to the vertex.? For radiation dose reduction, the following was used:? automated exposure control, adjustment of mA and/or kV according to patient size.? ? ? COMPARISON:? [facility], CT, CT ANGIO HEAD AND NECK, 05/12/2020, 14:47. ? FINDINGS: ? Noncontrast CT Brain: ? Cerebrum, cerebellum and brainstem:? Encephalomalacia and gliosis noted in the right parietal and occipital lobe consistent with old infarct.? Smaller right frontal similar focus noted.? There is appropriate cerebral and cerebellar volume.? No evidence of intracranial hemorrhage, mass effect or extra-axial fluid collections. ? Ventricles:? Appropriate size and position.? No evidence of hydrocephalus. ? Skull base:? The bony sella, pituitary gland and infundibulum are unremarkable.? Posterior fossa and cerebellum are unremarkable. Visualized portions of the external auditory canals and tympanic cavity are within normal limits. ? Calvarium and Scalp:? No scalp soft tissue swelling.? The underlying calvarium is intact without skull fracture or lytic lesion.? Bilateral intraocular lens replacements noted.6 ? Paranasal Sinuses:? Unremarkable as visualized.? No acute sinusitis. Mastoids:? Unremarkable as visualized.? No mastoid effusion. ? Cerebral CT Angiogram: ? Internal carotid arteries:? No acute findings.? Intracranial ICA are patent with no significant stenosis.? No occlusion.? No aneurysm. ? Anterior cerebral arteries:? Unremarkable.? No significant stenosis.? No occlusion.? No aneurysm. ? Middle cerebral arteries:? Unremarkable.? No significant stenosis.? No occlusion.? No aneurysm. ? Posterior cerebral arteries:? Hypoplasia/aplasia of the right P1 PAPER MACHINE BACK TENDER noted. The P2 segment is supplied by a widely patent posterior communicating artery. Remainder of the distal vasculature unremarkable..? No significant stenosis.? No occlusion.? No aneurysm. ? Basilar artery:? Unremarkable.? No significant stenosis.? No occlusion.? No aneurysm. ? Vertebral arteries:? Left vertebral artery dominance.? No significant stenosis.? No dissection or occlusion. ? Dural venous sinuses:? Unremarkable given phase of enhancement. Other: Arterial phase brain parenchyma unremarkable. ? Neck CT Angiogram: ? Internal carotid arteries:? Right proximal ICA stent is in place with patency.? Atherosclerotic vascular calcification noted in the proximal left ICA without hemodynamically significant stenosis by NASCET criteria. ? Common carotid arteries:? Unremarkable.? No significant stenosis.? No dissection or occlusion. ? External carotid arteries:? Unremarkable.? No occlusion. ? Vertebral arteries:? Moderate severe stenosis noted at the origin of the right vertebral artery.? Left vertebral artery dominance present. ? Aortic arch and mediastinum: Unremarkable. Other:? Arterial phase neck soft tissue within normal limits.? Both lung apices are clear. ? IMPRESSION: ? 1. No acute findings.? No change the prior exam. ? 2. Right parietal occipital old infarcts without evidence of intracranial hemorrhage or mass effect. ? 3. Atherosclerotic plaque in the proximal left ICA without hemodynamically significant stenosis. ? 4. 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 ? ? Note: Any reported proximal ICA stenosis was calculated using NASCET guidelines.? Approved by: Rick Aguilar M.D. on 09/03/2021 at 15:28? ECG Data Interpretation: Normal sinus rhythm rate 97 LA interval 152 wear QRS [address] changes no T-wave inversions Q-waves noted in lead 3 MDM Narrative Medical decision making narrative: Has had intermittent dizziness mostly when she turns her head off and on for the past 4 days. It is not consistent she has no difficulty walking. She has been treated with antibiotics for UTI. She has no focal deficits. Workup in ED is negative. CT angios negative blood work is negative. NIH stroke scales also negative. This is not consistent with a posterior CVA., more likely reaction to recent infection. She overall appears well. Discharge Plan Departure Patient Disposition: Home Clinical Impression: Dizziness Instructions: Dizziness, Nonvertigo Activity Restrictions/Additional Instructions: *You have been diagnosed with dizziness *What to do: At this time recommend the emergency department overall reassuring. Your symptoms may be related to your antibiotic as you have. *Continue to take medications as directed *Follow up with your primary care provider in 2-3 days or call [phone] *Return to ER if you should have increasing dizziness balance issues fever chest pain palpitations or any new, worsening or concerning symptoms Prescriptions: No Action metformin 500 mg tablet 500 mg PO BID phenazopyridine [Pyridium] 200 mg tablet 200 mg PO TID 0 Days Qty: 6 0RF phenazopyridine [Pyridium] 200 mg tablet 200 mg PO TID 0 Days Qty: 6 0RF metoprolol tartrate 25 mg Tablet 12.5 mg PO BID ezetimibe 10 mg Tablet 10 mg PO DAILY atorvastatin 10 mg Tablet 10 mg PO 3XW olmesartan [Benicar] 5 mg Tablet 5 mg PO DAILY aspirin [Adult Low Dose Aspirin] 81 mg Tablet,Delayed Release (Dr/Ec) 81 mg PO DAILY Referrals: Lo Brown MD [Primary Care Provider] - Visit Report Forms: Patient Portal/API
[2021-09-03 15:21] LABS: Alanine Aminotransferase 35 IU/L (<35); Albumin Globulin Ratio 1.5 (1.0-2.8); Alkaline Phosphatase 50 U/L (38-126); Aspartate Aminotransferase 28 IU/L (14-36); Bilirubin Total 0.5 mg/dL (0.2-1.3); Blood Urea Nitrogen 21 mg/dL (7-17); Calcium 9.3 mg/dL (8.4-10.2); Carbon Dioxide 24 mmol/L (22-32); Chloride 104 mmol/L (98-107); Creatine Kinase 93 U/L (30-135); Estimated Glomerular Filt Rate > 60 mL/min (>60); Globulin 2.7 g/dL (1.7-4.1); Glucose 184 mg/dL (80-110); HEMOLYSIS < 15 (0-50); Magnesium 1.7 mg/dL (1.6-2.3); Sodium 135 mmol/L (137-145); Total Protein 6.7 g/dL (6.3-8.2)
[2021-09-03 15:28] LABS: COVID19 -Nasal RAPID Negative (Negative)
--- NOTE | 2021-09-03 15:28 | PC.NURSE ---
Pt reports having developed a loss of balance that is worsened with sudden head movement and occurs with nausea. Pt denies dizziness or feeling syncopal. Pt also reports that despite completing her oral antibiotics, she continues to feel like she has an UTI. She has have multiple UTIs in the last 6 months and never felt like she ever recovered from them.
[2021-09-03 15:33] LABS: Troponin I < 0.012 ng/mL (0.01-0.034)
--- NOTE | 2021-09-03 15:38 | DI.CT.S_ITS ---
PROCEDURE: CT ANGIO HEAD AND NECK INDICATIONS: dizzy off balance x 4 days TECHNIQUE: Pre-contrast 4.5 mm thick sections acquired from the foramen magnum to the vertex. After the administration of intravenous contrast, 1 mm thick sections acquired from the aortic arch through the [place] of [place]. Post-contrast 4.5 mm thick sections then re-acquired from the foramen magnum to the vertex. For radiation dose reduction, the following was used: automated exposure control, adjustment of mA and/or kV according to patient size. COMPARISON: [facility], CT, CT ANGIO HEAD AND NECK, 05/12/2020, 14:47. FINDINGS: Noncontrast CT Brain: Cerebrum, cerebellum and brainstem: Encephalomalacia and gliosis noted in the right parietal and occipital lobe consistent with old infarct. Smaller right frontal similar focus noted. There is appropriate cerebral and cerebellar volume. No evidence of intracranial hemorrhage, mass effect or extra-axial fluid collections. Ventricles: Appropriate size and position. No evidence of hydrocephalus. Skull base: The bony sella, pituitary gland and infundibulum are unremarkable. Posterior fossa and cerebellum are unremarkable. Visualized portions of the external auditory canals and tympanic cavity are within normal limits. Calvarium and Scalp: No scalp soft tissue swelling. The underlying calvarium is intact without skull fracture or lytic lesion. Bilateral intraocular lens replacements noted.6 Paranasal Sinuses: Unremarkable as visualized. No acute sinusitis. Mastoids: Unremarkable as visualized. No mastoid effusion. Cerebral CT Angiogram: Internal carotid arteries: No acute findings. Intracranial ICA are patent with no significant stenosis. No occlusion. No aneurysm. Anterior cerebral arteries: Unremarkable. No significant stenosis. No occlusion. No aneurysm. Middle cerebral arteries: Unremarkable. No significant stenosis. No occlusion. No aneurysm. Posterior cerebral arteries: Hypoplasia/aplasia of the right P1 ANSWERING SERVICE AGENT noted. The P2 segment is supplied by a widely patent posterior communicating artery. Remainder of the distal vasculature unremarkable.. No significant stenosis. No occlusion. No aneurysm. Basilar artery: Unremarkable. No significant stenosis. No occlusion. No aneurysm. Vertebral arteries: Left vertebral artery dominance. No significant stenosis. No dissection or occlusion. Dural venous sinuses: Unremarkable given phase of enhancement. Other: Arterial phase brain parenchyma unremarkable. Neck CT Angiogram: Internal carotid arteries: Right proximal ICA stent is in place with patency. Atherosclerotic vascular calcification noted in the proximal left ICA without hemodynamically significant stenosis by NASCET criteria. Common carotid arteries: Unremarkable. No significant stenosis. No dissection or occlusion. External carotid arteries: Unremarkable. No occlusion. Vertebral arteries: Moderate severe stenosis noted at the origin of the right vertebral artery. Left vertebral artery dominance present. Aortic arch and mediastinum: Unremarkable. Other: Arterial phase neck soft tissue within normal limits. Both lung apices are clear. IMPRESSION: 1. No acute findings. No change the prior exam. 2. Right parietal occipital old infarcts without evidence of intracranial hemorrhage or mass effect. 3. Atherosclerotic plaque in the proximal left ICA without hemodynamically significant stenosis. 4. Moderate to severe stenosis at the origin of the right vertebral artery, stable Note: Any reported proximal ICA stenosis was calculated using NASCET guidelines. Approved by: Rick Aguilar M.D. on 09/03/2021 at 15:28
[2021-09-03 17:29] VITALS: BP 156/71; PULSE 83; RESP 20; O2SAT 98
== END 2021-09-03 17:54 | disposition home or self-care (01) ==
PROVIDERS: Emergency Provider Emergency Medicine; Family Provider Internal Medicine Endocrinology, Diabetes & Metabolism; PCP Internal Medicine
DX: R42 Dizziness and giddiness (principal); Z20.822 Contact with and (suspected) exposure to COVID-19; Z95.5 Presence of coronary angioplasty implant and graft
CPT/HCPCS: 36415; 70496; 70498; 71045; 80053; 81003; 82550; 83735; 84484; 85025; 85610; 85730; 87635; 93005; 93010; 99284; C9803; Q9967

== ENCOUNTER 2021-11-15 11:11 | Observation (INO) | payer MEDICARE, SELFPAY ==
[2020-05-22 21:02] VITALS: BMI 33.0
[2021-11-15] VITALS (20 sets, daily range): BP systolic 125–215; BP diastolic 61–114; PULSE 67–122; RESP 15–29; TEMP 36–36.9; O2SAT 94–98; BMI 32.8; BMI 32.1
--- NOTE | 2021-11-15 11:29 | DI.CT.S_ITS ---
PROCEDURE: CT ANGIO HEAD AND NECK INDICATIONS: ams TECHNIQUE: Pre-contrast 4.5 mm thick sections acquired from the foramen magnum to the vertex. After the administration of intravenous contrast, 1 mm thick sections acquired from the aortic arch through the [place]. Post-contrast 4.5 mm thick sections then re-acquired from the foramen magnum to the vertex. 3-dimensional nhxcvtw-gpxwdsdnk-qenqcqycwf (MIP) and/or volume rendering reformats were acquired of the central intracranial vasculature and neck separately. For radiation dose reduction, the following was used: automated exposure control, adjustment of mA and/or kV according to patient size. COMPARISON: Located Within [facility], CT, CT ANGIO HEAD AND NECK, 09/03/2021, 15:42. FINDINGS: Image quality: Excellent. BRAIN: CSF spaces: Ventricles are normal in size and shape. Basal cisterns are patent. No extra-axial fluid collections. Brain: No midline shift. No acute intracranial hemorrhage or mass effect. Chronic encephalomalacia is seen in the posterior right RESPIRATORY THERAPIST ASSISTANT territory, which does not appear significantly changed when compared to the CT from 09/03/2021. No acute loss of cerda-white matter differentiation is seen. Skull and face: Calvarium and facial bones appear intact, without suspicious lesions. Orbits appear normal. Sinuses: Sinuses and mastoids are clear. HEAD CT ANGIOGRAPHY: Anterior circulation: Intracranial internal carotid arteries are demonstrate mild atherosclerotic calcifications without significant stenosis. The flow within the paired anterior cerebral arteries is normal and symmetric. The flow within the middle cerebral arteries is normal and symmetric. The anterior communicating artery is seen. No aneurysms are seen. Posterior circulation: Visualized portions of the vertebral arteries demonstrate normal caliber, and join to form a normal appearing basilar artery. There is a hypoplastic or aplastic appearance of the P1 segment of the right posterior cerebral artery. The P2 segment of the RESPIRATORY THERAPIST ASSISTANT is supplied by a prominent right posterior communicating artery. The posterior cerebral arteries otherwise appear to be patent. No aneurysms are seen. NECK CT ANGIOGRAPHY: Carotid system: The great vessels demonstrate a conventional anatomy as they arise from the aortic arch. The origins of the common carotid arteries appear patent. The common carotid arteries demonstrate normal caliber and courses. A right sided vascular stent is seen extending from the distal right common carotid artery to the proximal right internal carotid artery. The stent appears patent. The distal right internal carotid artery is patent. The right external carotid artery is occluded proximally with distal flow related to collateral vessels. The left carotid bifurcation demonstrates calcified and noncalcified atherosclerotic plaque that does not result in hemodynamically significant stenosis. The distal left internal carotid artery is patent. Posterior circulation: Focal atherosclerotic calcification is seen at the origin of the right vertebral artery with severe stenosis as previously noted on the CT angiogram from 09/03/2021. Lack of contrast filling of the vertebral artery is seen from just distal to the stenosis and solid enters the C6 transverse foramen. Distal contrast material is seen in the right vertebral artery except for focal non opacification at the level of the right C3 transverse foramen. Just distal to the C3 transverse foramen, a prominent collateral vessel is seen in the paraspinous soft tissues that communicates with the right vertebral artery and traces back to the right external carotid artery. The more distal extracranial portions of the right vertebral artery full with contrast material. Left vertebral artery is patent. Soft tissues: Visualized neck soft tissues demonstrate no suspicious abnormalities. Bones: No suspicious bony lesions. Multilevel degenerative changes are seen in the cervical spine. No high-grade spinal canal narrowing. IMPRESSION: 1. No acute intracranial hemorrhage or mass effect. No acute loss of cerda-white matter differentiation identified. 2. Remote prior right parieto-occipital infarct appears unchanged. 3. Nonopacification of a 3 cm segment of the proximal cervical portion of the right vertebral artery. The distal extracranial portion of the right vertebral artery is opacified with contrast material. Additional focal nonopacification of the right vertebral artery is seen at the level of the C3 transverse foramen, where there is a somewhat prominent collateral vessel. Findings are new when compared to the CT angiogram from 09/03/2021. A component of retrograde collateral flow is suspected, and vessel opacification may be related to the timing of the contrast bolus. 4. Patent right common carotid artery to internal carotid artery stent. 5. No hemodynamically significant arterial stenosis or large vessel occlusion involving the major intracranial arteries. Findings were discussed with the referring physician, Dr. Mohr, by telephone on 11/15/2021 at 11:57 AM. Any quantitative measurements of stenosis were performed using NASCET criteria. Dictated by: Antonio Plascencia M.D. on 11/15/2021 at 11:48 Approved by: Antonio Plascencia M.D. on 11/15/2021 at 12:20
--- NOTE | 2021-11-15 11:34 | ED.NEUROSD ---
HPI - Neuro Symptoms/Deficit General Chief Complaint: Neuro Symptoms/Deficit Stated Complaint: Nausea, Dizziness Time Seen by Provider: 11/15/21 11:26 Source: patient Mode of arrival: Ambulatory History of Present Illness HPI Narrative: Code stroke was activated. Last well known 8:00 a.m. today. Previous history of stroke with altered mental status confusion but no limb weakness or numbness or slurred speech in the past. Last drink was 2018. Patient is on baby aspirin daily. Patient brought here by a friend. Has been nauseous and intermittent headaches in the past couple days. No slurred speech or facial droop or limb weakness or numbness. Has not been able to focus and concentrate. Blood pressure noted. Patient does take blood pressure medication. Blood sugar 168. Fast exam is negative. No recent illness fever chills cough cold or congestion. On Anticoagulants: No Related Data Home Medications Medication Instructions Recorded Confirmed aspirin 81 mg tablet,delayed 81 mg PO DAILY 06/19/19 11/15/21 release (Adult Low Dose Aspirin) atorvastatin 10 mg tablet 10 mg PO 3XW 05/22/20 11/15/21 ezetimibe 10 mg tablet 10 mg PO DAILY 05/22/20 11/15/21 metoprolol tartrate 25 mg tablet 12.5 mg PO BID 05/22/20 11/15/21 olmesartan 5 mg tablet (Benicar) 5 mg PO DAILY 05/22/20 11/15/21 metformin 500 mg tablet 500 mg PO BID 07/13/21 11/15/21 dulaglutide 1.5 mg/0.5 mL 1.5 mg SUBCUT QWEEK 11/15/21 11/15/21 subcutaneous pen injector (Trulicity) Allergies Allergy/AdvReac Type Severity Reaction Status Date / Time meclizine Allergy vertigo Verified 11/15/21 11:25 Review of Systems Review of Systems Narrative: GENERAL: Denies chills, fatigue, malaise, fever, sweats. HEENT: Denies sinus pain, ear pain, sore throat RESPIRATORY: Denies dyspnea, cough CARDIOVASCULAR: Denies chest pain, palpitations GASTROINTESTINAL: Denies nausea, vomiting, abdominal pain : Denies dysuria, frequency, hematuria MUSCULOSKELETAL: denies muscle or bony pain SKIN: Denies rash, skin lesions NEUROLOGIC: Denies weakness, numbness, positive for headache, positive for confusion ROS Unobtainable: All systems reviewed & are unremarkable except as noted in HPI and below Hematologic/Lymphatic On Anticoagulants: No 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 TIA (transient ischemic attack) Surgical History History of bilateral salpingo-oophorectomy (BSO) History of endarterectomy Status post appendectomy Status post hysterectomy Family History Brother Age: 72 Diabetes mellitus Hypertension High cholesterol Brother Age: 70 Heart disease Hypertension High cholesterol Father Heart disease Stroke Social History household members: none Smoking Status: Never smoker alcohol intake: current Smoking Status: Never smoker alcohol intake frequency: a few times a week Substance Use Type: does not use Exam Narrative Exam Narrative: GENERAL: in no distress, not toxic not dyspneic HEAD: Normocephalic. EYES: Pupils equal round No scleral icterus. ENT: Mucous membranes moist. NECK: Trachea midline. CARDIOVASCULAR: Regular rate and rhythm without murmurs RESPIRATORY: Clear to auscultation. Breath sounds equal bilaterally. No wheezes, rales, or rhonchi. GASTROINTESTINAL: Abdomen soft, non-tender EXTREMITIES: No gross deformities. BACK: No flank tenderness. NEURO: AOx4. Clear speech no facial droop light touch intact to bilateral face hands and legs with strong equal cooler operator. Negative pronator drift. Hryeix-ar-jfgd intact bilaterally. SKIN: Warm and dry PSYCH: Not anxious, is cooperative Initial Vital Signs Initial Vital Signs: Vital Signs Temperature 98.4 F 11/15/21 11:13 Pulse Rate 122 H 11/15/21 11:13 Respiratory Rate 15 11/15/21 11:13 Blood Pressure 215/114 H 11/15/21 11:13 Pulse Oximetry 98 11/15/21 11:13 Oxygen Delivery Method 11/15/21 11:13 Scores NIH Stroke Scale Level of Conciousness: Alert, keenly responsive Ask month/age: Answers both questions correctly. Open/close eyes, close hand: Performs both tasks correctly Best gaze horizontal: Normal Visual crum: No visual loss Facial palsy: Normal symetrical movement Left arm drift: No drift for full 10 sec Right arm drift: No drift for full 10 sec Left leg drift: No drift for full 5 sec Right leg drift: No drift for full 5 sec Limb ataxia: Absent Sensory on face/arms/legs: Normal, no sensory loss Best language: No aphasia, normal Dysarthria: Normal Extinction or inattention: No abnormality Total NIH Stroke scale score: 0 Course Course Course Narrative: No new issues during course of stay. Labetalol 10 mg IV was ordered. Blood pressure noted. 12:00 p.m.. Spoke with radiologist regarding head CT and CT angiogram of head and neck. Decision to Admit Date: 11/15/21 Decision to Admit time: 11:38 Orders Ordered: ED Orders 11/15/21 11:25 Complete Blood Count AUTO DIFF Stat Comprehensive Metabolic Panel Stat Partial Thromboplastin Time Stat Prothrombin Time INR Stat Troponin & CK Cardiac Panel Stat 11/15/21 11:29 CT angio head and neck Stat 11/15/21 11:45 EKG-12 Lead Stat 11/15/21 13:19 COVID19 -Nasal RAPID/Pre-Proc Stat Acetaminophen (Acetaminophen 325 Mg Tablet) 650 mg PO Q6HR PRN PRN Reason: Fever Labetalol HCl (Labetalol 20 Mg/4 Ml Syringe) 5 mg IV Q4HR PRN PRN Reason: SBP >220 or DBP >110 Discontinued Medications Labetalol HCl (Labetalol 20 Mg/4 Ml Syringe) 10 mg IV NOW ONE Stop: 11/15/21 11:31 Last Admin: 11/15/21 11:47 Dose: 10 mg Documented By: DAYANARA Reevaluation(s) Reevaluation #1: No new issues on return from CT Time: 12:10 Reevaluation #2: Reviewed with patient treatment plan. She agrees for admission. Blood pressure improved 156/74 Time: 13:04 Consultations Consultation #1: Spoke with the [facility] stroke team, Dr. Glynn Dietrich, resident on-call, he will review with his attending and remotely examined patient, at this time no tPA given NIH score. I did review angiogram with him as well Time: 12:09 Consultation #2: Spoke with Dr. Dietrich again. He has completed video interview with patient. At this time no tPA. Would not change aspirin or add any antiplatelets. Recommends admission for balance of workup with MRI and echocardiogram. Time: 13:04 Consultation #3: Spoke with Dr. Mae, hospitalist, will admit Time: 14:48 Vital Signs Vital signs: Vital Signs - 8 hr 11/15/21 11:13 11/15/21 11:47 11/15/21 11:17 Temperature 98.4 F Pulse Rate 122 H 110 H 122 H Respiratory Rate 15 Blood Pressure 215/114 H 193/97 H Pulse Oximetry 98 98 Oxygen Delivery Method Room Air 11/15/21 11:18 11/15/21 11:18 11/15/21 11:44 Temperature Pulse Rate 120 H 107 H Respiratory Rate Blood Pressure 215/114 H Pulse Oximetry 98 96 Oxygen Delivery Method 11/15/21 11:45 11/15/21 11:45 11/15/21 11:57 Temperature Pulse Rate 109 H 105 H Respiratory Rate 16 15 Blood Pressure 193/97 H Pulse Oximetry 94 97 Oxygen Delivery Method 11/15/21 11:57 11/15/21 11:59 11/15/21 11:59 Temperature Pulse Rate 105 H Respiratory Rate 21 Blood Pressure 176/95 H 173/89 H Pulse Oximetry 97 Oxygen Delivery Method 11/15/21 12:00 11/15/21 12:00 11/15/21 12:21 Temperature Pulse Rate 104 H Respiratory Rate 17 Blood Pressure 165/83 H 175/100 H Pulse Oximetry 97 Oxygen Delivery Method 11/15/21 12:21 11/15/21 12:30 11/15/21 12:30 Temperature Pulse Rate 110 H 106 H Respiratory Rate 23 20 Blood Pressure 165/87 H Pulse Oximetry 97 95 Oxygen Delivery Method 11/15/21 13:00 11/15/21 13:00 11/15/21 13:26 Temperature Pulse Rate 99 H Respiratory Rate 18 Blood Pressure 156/76 H 184/77 H Pulse Oximetry 96 Oxygen Delivery Method 11/15/21 13:26 11/15/21 13:30 11/15/21 13:30 Temperature Pulse Rate 94 H 96 H Respiratory Rate 16 16 Blood Pressure 161/75 H Pulse Oximetry 96 97 Oxygen Delivery Method 11/15/21 13:59 11/15/21 14:00 11/15/21 14:00 Temperature Pulse Rate 67 96 H Respiratory Rate 29 H Blood Pressure 161/75 H 125/61 Pulse Oximetry 96 Oxygen Delivery Method 11/15/21 14:30 11/15/21 14:30 Temperature Pulse Rate 93 H Respiratory Rate 22 Blood Pressure 135/73 Pulse Oximetry 96 Oxygen Delivery Method MDM - Neuro Symptoms/Deficit Differential Diagnosis Differential diagnosis: Likely subarachnoid hemorrhage, cerebrovascular accident and transient cerebral ischemia Lab Data Result diagrams: 11/15/21 11:25 11/15/21 11:25 Labs: Lab Results 11/15/21 11/15/21 11/15/21 Range/Units 11:25 11:25 11:25 WBC 9.3 (4.5-11.0) X10^3/uL RBC 4.82 (4.0-5.2) X10^6/uL Hgb 13.8 (12.0-16.0) g/dL Hct 42.6 (36-46) % MCV 88.4 (80-100) fL MCH 28.7 (26-34) PG MCHC 32.4 (30-36) % RDW 13.8 (11.6-14.8) % Plt Count 200 (150-400) X10^3/uL Neut % (Auto) 66.9 (50-75) % Lymph % (Auto) 23.9 L (25-40) % [place] % (Auto) 7.4 (3-14) % Eos % (Auto) 1.2 L (2-4) % Baso % (Auto) 0.6 (0-2) % Neut # (Auto) 6200 (5026-9742) /uL Lymph # (Auto) 2200 (4331-3335) /uL [place] # (Auto) 700 (0-900) /uL Eos # (Auto) 100 (0-450) /uL Baso # (Auto) 100 (0-100) /uL PT 10.9 (10.1-12.7) SECONDS INR 1.0 (0.9-1.3) APTT 30 (26-36) SECONDS Sodium 140 (137-145) mmol/L Potassium 4.0 (3.4-5.1) mmol/L Chloride 103 (98-107) mmol/L Carbon Dioxide 27 (22-32) mmol/L BUN 12 (7-17) mg/dL Creatinine 0.68 (0.52-1.04) mg/dL Estimated GFR > 60 (>60) mL/min BUN/Creatinine Ratio 17.6 (6-22) Glucose 173 H (80-110) mg/dL Hemoglobin A1c (4.0-6.0) % Calcium 9.5 (8.4-10.2) mg/dL Magnesium (1.6-2.3) mg/dL Total Bilirubin 0.5 (0.2-1.3) mg/dL AST 23 (14-36) IU/L ALT 22 (<35) IU/L Alkaline Phosphatase 51 (38-126) U/L Total Creatine Kinase 55 (30-135) U/L CK-MB (CK-2) TNP CK-MB (CK-2) Rel Index TNP Troponin I < 0.012 (0.01-0.034) ng/mL Total Protein 7.6 (6.3-8.2) g/dL Albumin 4.3 (3.5-5.0) g/dL Globulin 3.3 (1.7-4.1) g/dL Albumin/Globulin Ratio 1.3 (1.0-2.8) SARS-CoV-2 (PCR) (Negative) 11/15/21 11/15/21 11/15/21 Range/Units 13:19 14:43 14:43 WBC (4.5-11.0) X10^3/uL RBC (4.0-5.2) X10^6/uL Hgb (12.0-16.0) g/dL Hct (36-46) % MCV (80-100) fL MCH (26-34) PG MCHC (30-36) % RDW (11.6-14.8) % Plt Count (150-400) X10^3/uL Neut % (Auto) (50-75) % Lymph % (Auto) (25-40) % [place] % (Auto) (3-14) % Eos % (Auto) (2-4) % Baso % (Auto) (0-2) % Neut # (Auto) (9894-9459) /uL Lymph # (Auto) (9601-5639) /uL [place] # (Auto) (0-900) /uL Eos # (Auto) (0-450) /uL Baso # (Auto) (0-100) /uL PT (10.1-12.7) SECONDS INR (0.9-1.3) APTT (26-36) SECONDS Sodium (137-145) mmol/L Potassium (3.4-5.1) mmol/L Chloride (98-107) mmol/L Carbon Dioxide (22-32) mmol/L BUN (7-17) mg/dL Creatinine (0.52-1.04) mg/dL Estimated GFR (>60) mL/min BUN/Creatinine Ratio (6-22) Glucose (80-110) mg/dL Hemoglobin A1c 7.5 H (4.0-6.0) % Calcium (8.4-10.2) mg/dL Magnesium 1.7 (1.6-2.3) mg/dL Total Bilirubin (0.2-1.3) mg/dL AST (14-36) IU/L ALT (<35) IU/L Alkaline Phosphatase (38-126) U/L Total Creatine Kinase (30-135) U/L CK-MB (CK-2) CK-MB (CK-2) Rel Index Troponin I (0.01-0.034) ng/mL Total Protein (6.3-8.2) g/dL Albumin (3.5-5.0) g/dL Globulin (1.7-4.1) g/dL Albumin/Globulin Ratio (1.0-2.8) SARS-CoV-2 (PCR) Negative (Negative) Urine Dip Bedside Urine Glucose Negative Bedside Urine Bilirubin - Negative Bedside Urine Ketone - Negative Urine Specific [place] 1.005 Bedside Urine Occult Blood - Negative Bedside Urine pH 6.0 Bedside Urine Protein - Negative Bedside Urine Urobilinogen - Negative Bedside Urine Nitrite - Negative Bedside Urine Leukocytes - Negative Esterase Imaging Data CTA - brain/neck: Radiologist's Impression: [address] [address] [address] Scan Report Signed Patient: Bryan Ramirez MR#: [id number] : 1945 Acct:[id number] Age/Sex: 76 / F Date of Service: 11/15/21 Loc: ED Accession Number: [id number] ?? Procedure: CT angio head and neck Ordering Provider: Tulio Mohr MD PROCEDURE:? CT ANGIO HEAD AND NECK ? INDICATIONS:? ams ? TECHNIQUE:? Pre-contrast 4.5 mm thick sections acquired from the foramen magnum to the vertex.? After the administration of intravenous contrast, 1 mm thick sections acquired from the aortic arch through the [place].? Post-contrast 4.5 mm thick sections then re-acquired from the foramen magnum to the vertex.? 3-dimensional qnguthq-glsqkwkuw-bhfxhieywl (MIP) and/or volume rendering reformats were acquired of the central intracranial vasculature and neck separately. For radiation dose reduction, the following was used:? automated exposure control, adjustment of mA and/or kV according to patient size.? ? COMPARISON:? [facility], CT, CT ANGIO HEAD AND NECK, 09/03/2021, 15:42. ? FINDINGS:? Image quality:? Excellent.? ? BRAIN:? CSF spaces:? Ventricles are normal in size and shape.? Basal cisterns are patent.? No extra-axial fluid collections.? ? Brain:? No midline shift.? No acute intracranial hemorrhage or mass effect.? Chronic encephalomalacia is seen in the posterior right STAGE MANAGER territory, which does not appear significantly changed when compared to the CT from 09/03/2021.? No acute loss of cerda-white matter differentiation is seen.? ? Skull and face:? Calvarium and facial bones appear intact, without suspicious lesions.? Orbits appear normal.? ? Sinuses:? Sinuses and mastoids are clear.? ? HEAD CT ANGIOGRAPHY:? Anterior circulation:? Intracranial internal carotid arteries are demonstrate mild atherosclerotic calcifications without significant stenosis.? The flow within the paired anterior cerebral arteries is normal and symmetric.? The flow within the middle cerebral arteries is normal and symmetric.? The anterior communicating artery is seen.? No aneurysms are seen.? ? Posterior circulation:? Visualized portions of the vertebral arteries demonstrate normal caliber, and join to form a normal appearing basilar artery.? There is a hypoplastic or aplastic appearance of the P1 segment of the right posterior cerebral artery.? The P2 segment of the STAGE MANAGER is supplied by a prominent right posterior communicating artery.? The posterior cerebral arteries otherwise appear to be patent.? No aneurysms are seen.? ? NECK CT ANGIOGRAPHY:? Carotid system:? The great vessels demonstrate a conventional anatomy as they arise from the aortic arch.? The origins of the common carotid arteries appear patent.? The common carotid arteries demonstrate normal caliber and courses.? A right sided vascular stent is seen extending from the distal right common carotid artery to the proximal right internal carotid artery.? The stent appears patent.? The distal right internal carotid artery is patent.? The right external carotid artery is occluded proximally with distal flow related to collateral vessels.? The left carotid bifurcation demonstrates calcified and noncalcified atherosclerotic plaque that does not result in hemodynamically significant stenosis.? The distal left internal carotid artery is patent. ? Posterior circulation:? Focal atherosclerotic calcification is seen at the origin of the right vertebral artery with severe stenosis as previously noted on the CT angiogram from 09/03/2021.? Lack of contrast filling of the vertebral artery is seen from just distal to the stenosis and solid enters the C6 transverse foramen.? Distal contrast material is seen in the right vertebral artery except for focal non opacification at the level of the right C3 transverse foramen.? Just distal to the C3 transverse foramen, a prominent collateral vessel is seen in the paraspinous soft tissues that communicates with the right vertebral artery and traces back to the right external carotid artery.? The more distal extracranial portions of the right vertebral artery full with contrast material.? Left vertebral artery is patent. ? Soft tissues:? Visualized neck soft tissues demonstrate no suspicious abnormalities.? ? Bones:? No suspicious bony lesions.? Multilevel degenerative changes are seen in the cervical spine.? No high-grade spinal canal narrowing. ? ? IMPRESSION:? 1. No acute intracranial hemorrhage or mass effect.? No acute loss of cerda-white matter differentiation identified. ? 2. Remote prior right parieto-occipital infarct appears unchanged. ? 3. Nonopacification of a 3 cm segment of the proximal cervical portion of the right vertebral artery.? The distal extracranial portion of the right vertebral artery is opacified with contrast material.? Additional focal nonopacification of the right vertebral artery is seen at the level of the C3 transverse foramen, where there is a somewhat prominent collateral vessel.? Findings are new when compared to the CT angiogram from 09/03/2021.? A component of retrograde collateral flow is suspected, and vessel opacification may be related to the timing of the contrast bolus.? ? 4. Patent right common carotid artery to internal carotid artery stent. ? 5. No hemodynamically significant arterial stenosis or large vessel occlusion involving the major intracranial arteries. ? Findings were discussed with the referring physician, Dr. Mohr, by telephone on 11/15/2021 at 11:57 AM.? ? Any quantitative measurements of stenosis were performed using NASCET criteria.? Dictated by: Antonio Plascencia M.D. on 11/15/2021 at 11:48 ? ? Approved by: Antonio Plascencia M.D. on 11/15/2021 at 12:20 ? ECG Data Interpretation: Sinus tachycardia rate 108, no ST elevation or depression. MDM Narrative Medical decision making narrative: Appropriate for admission for balance workup for TIA. Did review with [facility] tele stroke Discharge Plan Departure Patient Disposition: Admitted as Observation Clinical Impression: Transient cerebral ischemia Admit Date/Time: 11/15/21 14:43 Admit Provider: Glynn Mae
[2021-11-15 11:37] LABS: Add Manual Diff / Slide Review NO; Basophils Absolute Auto 100 /uL (0-100); Basophils Percent Auto 0.6 % (0-2); Eosinophils Absolute Auto 100 /uL (0-450); Eosinophils Percent Auto 1.2 % (2-4); Hematocrit 42.6 % (36-46); Hemoglobin 13.8 g/dL (12.0-16.0); Lymphocytes Absolute Auto 2200 /uL (1100-4500); Lymphocytes Percent Auto 23.9 % (25-40); Mean Corpuscular HGB Conc 32.4 % (30-36); Mean Corpuscular Hemoglobin 28.7 PG (26-34); Mean Corpuscular Volume 88.4 fL (80-100); Monocytes Absolute Auto 700 /uL (0-900); Monocytes Percent Auto 7.4 % (3-14); Neutrophils Absolute Auto 6200 /uL (1500-7000); Neutrophils Percent Auto 66.9 % (50-75); Platelet Count 200 X10^3/uL (150-400); Red Blood Cell Count 4.82 X10^6/uL (4.0-5.2); Red Cell Distribution Width 13.8 % (11.6-14.8); White Blood Cell Count 9.3 X10^3/uL (4.5-11.0)
[2021-11-15 11:39] LABS: Prothrombin Time 10.9 SECONDS (10.1-12.7)
[2021-11-15 11:42] LABS: PTT Partial Thromboplastin Tim 30 SECONDS (26-36)
[2021-11-15 11:44] LABS: Alanine Aminotransferase 22 IU/L (<35); Albumin 4.3 g/dL (3.5-5.0); Albumin Globulin Ratio 1.3 (1.0-2.8); Alkaline Phosphatase 51 U/L (38-126); Aspartate Aminotransferase 23 IU/L (14-36); BUN Creatinine Ratio 17.6 (6-22); Bilirubin Total 0.5 mg/dL (0.2-1.3); Blood Urea Nitrogen 12 mg/dL (7-17); Calcium 9.5 mg/dL (8.4-10.2); Carbon Dioxide 27 mmol/L (22-32); Chloride 103 mmol/L (98-107); Creatine Kinase 55 U/L (30-135); Estimated Glomerular Filt Rate > 60 mL/min (>60); Globulin 3.3 g/dL (1.7-4.1); Glucose 173 mg/dL (80-110); HEMOLYSIS < 15 (0-50); Sodium 140 mmol/L (137-145); Total Protein 7.6 g/dL (6.3-8.2)
[2021-11-15] MEDS: LABETALOL 20 MG/4 ML SYRINGE 10 MG IV (11:47)
[2021-11-15 11:55] LABS: Troponin I < 0.012 ng/mL (0.01-0.034)
--- NOTE | 2021-11-15 12:47 | PC.NURSE ---
tele stroke complete by dr tyson with [facility].
[2021-11-15 13:55] LABS: COVID19 -Nasal RAPID Negative (Negative)
--- NOTE | 2021-11-15 14:58 | DI.MRI.S_ITS ---
PROCEDURE: MR HEAD/BRAIN WO CON INDICATIONS: TIA, CTA head with opacification of right vert art TECHNIQUE: Non-contrast axial T1 spin echo, axial T2 fast spin echo, sagittal and axial FLAIR, coronal T2 fast spin echo, axial gradient echo, axial diffusion and ADC through the brain. COMPARISON: [facility], MR, STROKE PROTOCOL, 09/02/2014, 9:45. [facility], CT, CT ANGIO HEAD AND NECK, 05/12/2020, 14:47. [facility], MR, MR STROKE, 05/23/2020, 8:16. [facility], US, US CAROTID DOPPLER BI, 11/16/2021, 9:13. [facility], CT, CT ANGIO HEAD AND NECK, 09/03/2021, 15:42. [facility], CT, CT ANGIO HEAD AND NECK, 11/15/2021, 11:31. FINDINGS: Image quality: Excellent. CSF spaces: Ventricles appear symmetric in size and shape. Basal cisterns are patent. No extra-axial fluid collections. Brain: Focal volume loss encephalomalacia can be seen involving the right parietal occipital region, as before. No intracranial bleeds or mass effects. There is cerebral volume loss for age. There are periventricular and deep white matter chronic small vessel ischemic changes. Brainstem appears normal. Diffusion-weighted images show no acute ischemic insults. Normal intravascular flow voids are present. Skull and face: Calvarial bone marrow is normal in signal. Orbits are normal. Sinuses: Sinuses and mastoids are clear. IMPRESSION: No findings of acute or subacute infarction can be seen. 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 Dictated by: Arley Mcintyre M.D. on 11/16/2021 at 9:40 Approved by: Arley Mcintyre M.D. on 11/16/2021 at 9:43
[2021-11-15 15:31] LABS: Magnesium 1.7 mg/dL (1.6-2.3)
[2021-11-15 15:37] LABS: Hemoglobin A1C% w Est Avg Glu 7.5 % (4.0-6.0)
--- NOTE | 2021-11-15 19:08 | PM.HP.1 ---
History of Present Illness History of Present Illness Date Patient Seen: 11/15/21 Time Patient Seen: 19:08 Chief complaint: Nausea, Dizziness Narrative: Margaret Ramirez is a 76-year-old female with past medical history of hypertension, hyperlipidemia, type 2 diabetes, recurrent UTIs and CVA from carotid artery stenosis s/p stent who presents with 3 hours of word searching, headache and being nauseous. Patient states she has been nauseous for 2 months after starting Trulicity, however this morning in addition to her nausea she had word searching difficulty and a posterior headache so she got concerned for a stroke. She states her symptoms lasted about 3 hours then resolved. In the ED patient had a blood pressure of 215/114. Patient states her blood pressure is normally in the 120-130 systolic on olmesartan. She has no idea why her blood pressure shot up but she is been quite anxious lately but she is unsure why. She denies any extremity weakness, slurred speech or facial droop. 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 TIA (transient ischemic attack) Surgical History History of bilateral salpingo-oophorectomy (BSO) History of endarterectomy Status post appendectomy Status post hysterectomy Family & Social History Family History Brother Age: 72 Diabetes mellitus Hypertension High cholesterol Brother Age: 70 Heart disease Hypertension High cholesterol Father Heart disease Stroke Social History: household members none Safety & Behavioral: Feels Safe in Current Yes Environment Been Physically Hurt or No Threatened By a Person Tobacco & Substance use: Smoking Status Never smoker alcohol intake current alcohol intake frequency a few times a week Substance Use Type does not use Meds Home Medications and Allergies Home Medications Medication Instructions Recorded Confirmed Type aspirin 81 mg tablet,delayed 81 mg PO DAILY 06/19/19 11/15/21 History release (Adult Low Dose Aspirin) atorvastatin 10 mg tablet 10 mg PO 3XW 05/22/20 11/15/21 History ezetimibe 10 mg tablet 10 mg PO DAILY 05/22/20 11/15/21 History metoprolol tartrate 25 mg tablet 12.5 mg PO BID 05/22/20 11/15/21 History olmesartan 5 mg tablet (Benicar) 5 mg PO DAILY 05/22/20 11/15/21 History metformin 500 mg tablet 500 mg PO BID 07/13/21 11/15/21 History dulaglutide 1.5 mg/0.5 mL 1.5 mg SUBCUT QWEEK 11/15/21 11/15/21 History subcutaneous pen injector (Trulicity) Allergies Allergy/AdvReac Type Severity Reaction Status Date / Time meclizine Allergy vertigo Verified 11/15/21 11:25 Review of Systems Review of Systems Narrative: All other systems reviewed with the patient and are negative unless otherwise stated. Exam Vital Signs (past 8 hours): - 11/15/21 11:13 11/15/21 11:47 11/15/21 11:17 Temperature 98.4 F Pulse Rate 122 H 110 H 122 H Respiratory Rate 15 Blood Pressure 215/114 H 193/97 H Pulse Oximetry 98 98 Oxygen Delivery Method Room Air Oxygen Flow Rate 11/15/21 11:18 11/15/21 11:18 11/15/21 11:44 Temperature Pulse Rate 120 H 107 H Respiratory Rate Blood Pressure 215/114 H Pulse Oximetry 98 96 Oxygen Delivery Method Oxygen Flow Rate 11/15/21 11:45 11/15/21 11:45 11/15/21 11:57 Temperature Pulse Rate 109 H 105 H Respiratory Rate 16 15 Blood Pressure 193/97 H Pulse Oximetry 94 97 Oxygen Delivery Method Oxygen Flow Rate 11/15/21 11:57 11/15/21 11:59 11/15/21 11:59 Temperature Pulse Rate 105 H Respiratory Rate 21 Blood Pressure 176/95 H 173/89 H Pulse Oximetry 97 Oxygen Delivery Method Oxygen Flow Rate 11/15/21 12:00 11/15/21 12:00 11/15/21 12:21 Temperature Pulse Rate 104 H Respiratory Rate 17 Blood Pressure 165/83 H 175/100 H Pulse Oximetry 97 Oxygen Delivery Method Oxygen Flow Rate 11/15/21 12:21 11/15/21 12:30 11/15/21 12:30 Temperature Pulse Rate 110 H 106 H Respiratory Rate 23 20 Blood Pressure 165/87 H Pulse Oximetry 97 95 Oxygen Delivery Method Oxygen Flow Rate 11/15/21 13:00 11/15/21 13:00 11/15/21 13:26 Temperature Pulse Rate 99 H Respiratory Rate 18 Blood Pressure 156/76 H 184/77 H Pulse Oximetry 96 Oxygen Delivery Method Oxygen Flow Rate 11/15/21 13:26 11/15/21 13:30 11/15/21 13:30 Temperature Pulse Rate 94 H 96 H Respiratory Rate 16 16 Blood Pressure 161/75 H Pulse Oximetry 96 97 Oxygen Delivery Method Oxygen Flow Rate 11/15/21 13:59 11/15/21 14:00 11/15/21 14:00 Temperature Pulse Rate 67 96 H Respiratory Rate 29 H Blood Pressure 161/75 H 125/61 Pulse Oximetry 96 Oxygen Delivery Method Oxygen Flow Rate 11/15/21 14:30 11/15/21 14:30 11/15/21 15:00 Temperature Pulse Rate 93 H Respiratory Rate 22 Blood Pressure 135/73 133/75 Pulse Oximetry 96 Oxygen Delivery Method Oxygen Flow Rate 11/15/21 15:00 11/15/21 16:11 Temperature 96.8 F L Pulse Rate 92 H 92 H Respiratory Rate 15 18 Blood Pressure 161/86 H Pulse Oximetry 96 97 Oxygen Delivery Method Oxygen Flow Rate 0 Oxygen Delivery Method Room Air Oxygen Flow Rate 0 Narrative Exam Narrative: GEN: no acute distress HEENT: moist mucous membranes, PERRL NECK: trachea midline, no JVD CV: regular rate and rhythm, no murmurs PULM: clear bilaterally ABD: soft, nontender, nondistended, no organomegaly EXT: warm and well perfused with no edema NEURO: awake, alert, oriented, no focal deficits Objective Labs Result Diagrams: 11/15/21 11:25 11/15/21 11:25 Labs: Laboratory Results - last 24 hr 11/15/21 11/15/21 11/15/21 11:25 11:25 11:25 WBC 9.3 RBC 4.82 Hgb 13.8 Hct 42.6 MCV 88.4 MCH 28.7 MCHC 32.4 RDW 13.8 Plt Count 200 Neut % (Auto) 66.9 Lymph % (Auto) 23.9 L [place] % (Auto) 7.4 Eos % (Auto) 1.2 L Baso % (Auto) 0.6 Neut # (Auto) 6200 Lymph # (Auto) 2200 [place] # (Auto) 700 Eos # (Auto) 100 Baso # (Auto) 100 PT 10.9 INR 1.0 APTT 30 Sodium 140 Potassium 4.0 Chloride 103 Carbon Dioxide 27 BUN 12 Creatinine 0.68 Estimated GFR > 60 BUN/Creatinine Ratio 17.6 Glucose 173 H Hemoglobin A1c Calcium 9.5 Magnesium Total Bilirubin 0.5 AST 23 ALT 22 Alkaline Phosphatase 51 Total Creatine Kinase 55 CK-MB (CK-2) TNP CK-MB (CK-2) Rel Index TNP Troponin I < 0.012 Total Protein 7.6 Albumin 4.3 Globulin 3.3 Albumin/Globulin Ratio 1.3 SARS-CoV-2 (PCR) 11/15/21 11/15/21 11/15/21 13:19 14:43 14:43 WBC RBC Hgb Hct MCV MCH MCHC RDW Plt Count Neut % (Auto) Lymph % (Auto) [place] % (Auto) Eos % (Auto) Baso % (Auto) Neut # (Auto) Lymph # (Auto) [place] # (Auto) Eos # (Auto) Baso # (Auto) PT INR APTT Sodium Potassium Chloride Carbon Dioxide BUN Creatinine Estimated GFR BUN/Creatinine Ratio Glucose Hemoglobin A1c 7.5 H Calcium Magnesium 1.7 Total Bilirubin AST ALT Alkaline Phosphatase Total Creatine Kinase CK-MB (CK-2) CK-MB (CK-2) Rel Index Troponin I Total Protein Albumin Globulin Albumin/Globulin Ratio SARS-CoV-2 (PCR) Negative Assessment & Plan Assessment & Plan narrative: # stroke-like symptoms concerning for TIA -patient notes word searching for 3 hours, high risk given past stroke -ABCD score of 5 -obtain MRI brain and echo -obtain carotid US -continue home aspirin -continue home statin and ezetimibe # HTN urgency -BP severely elevated in ED 215/114, s/p one dose of IV labetalol -allow permissive HTN for 24 hours -labetolol PRN for SBP >220 or DBP >110 # DM2 -hold home metformin and trulicity -patient's nausea likely due to trulicity, will discuss with her PCP about this -A1c 7.5% -SSI Code status is full code. COVID negative. DVT prophylaxis with SCDs. Proxy is daughter Abraham. I have reviewed home meds and used all available resources to reconcile the home meds. Time Spent With Patient Critical Care time: I spent a total of [] minutes of critical care time on this patient's care today; this time is exclusive of procedural time. Quality VTE Deep Vein Thrombosis/Pulmonary Embolism Present on Admission: No
--- NOTE | 2021-11-15 19:16 | DI.US.S_ITS ---
PROCEDURE: US CAROTID DOPPLER BI INDICATIONS: prior ALIZE, vertebral artery opacification on CTA neck TECHNIQUE: Color and pulse Doppler interrogation was performed of both carotid systems, with image documentation and velocity measurements. COMPARISON: [facility], CT, CT ANGIO HEAD AND NECK, 11/15/2021, 11:31. [facility], US, US CAROTID DOPPLER BI, 05/23/2020, 7:37. FINDINGS: Stenosis calculations are based on SRU (Society of Radiologists in Ultrasound) criteria. Right side: Brachial blood pressure: 137/79 mm Hg. Common carotid artery peak systolic velocity: 92 cm/sec. Internal carotid artery peak systolic velocity: 96 cm/sec. Internal carotid artery end diastolic velocity: 25 cm/sec. External carotid artery peak systolic velocity: 23 cm/sec. ICA/CCA peak systolic ratio: 1.0 . Miranda scale imaging description: The right common carotid artery stent appears patent. Percent internal carotid artery stenosis: Less than 50%. Vertebral artery: The vertebral artery is poorly characterized. There is no definite flow visualized within the central portion of the vertebral artery and the peripheral portion of the vertebral artery demonstrates some reversal of flow. Left side: Brachial blood pressure: 138/80 mm Hg. Common carotid artery peak systolic velocity: 113 cm/sec. Internal carotid artery peak systolic velocity: 97 cm/sec. Internal carotid artery end diastolic velocity: 30 cm/sec. External carotid artery peak systolic velocity: 91 cm/sec. ICA/CCA peak systolic ratio: 0.9 . Miranda scale imaging description: Dense atheromatous calcification is present at the carotid bifurcation. Percent internal carotid artery stenosis: Less than 50% . Vertebral artery: Flow direction is antegrade. IMPRESSION: 1. Patent right common carotid artery stent. 2. Less than 50% stenosis of the bilateral internal carotid arteries. 3. 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 Dictated by: Yesenia Jennings M.D. on 11/16/2021 at 10:08 Approved by: Yesenia Jennings M.D. on 11/16/2021 at 10:14
[2021-11-15] MEDS: ACETAMINOPHEN 325 MG TABLET 650 MG PO (22:04)
[2021-11-15] MEDS: EZETIMIBE 10 MG TABLET PO (22:13)
[2021-11-16] VITALS: BP 143/81; PULSE 99; RESP 19; TEMP 35.9; O2SAT 97
[2021-11-16 04:00] VITALS: BP 132/85; PULSE 90; RESP 17; TEMP 36.2; O2SAT 96
[2021-11-16 06:18] LABS: Add Manual Diff / Slide Review NO; Basophils Absolute Auto 0 /uL (0-100); Basophils Percent Auto 0.3 % (0-2); Eosinophils Absolute Auto 200 /uL (0-450); Eosinophils Percent Auto 2.8 % (2-4); Hematocrit 38.7 % (36-46); Hemoglobin 12.7 g/dL (12.0-16.0); Lymphocytes Absolute Auto 2000 /uL (1100-4500); Lymphocytes Percent Auto 25.7 % (25-40); Mean Corpuscular HGB Conc 32.7 % (30-36); Mean Corpuscular Hemoglobin 28.9 PG (26-34); Mean Corpuscular Volume 88.3 fL (80-100); Monocytes Absolute Auto 600 /uL (0-900); Monocytes Percent Auto 8.2 % (3-14); Neutrophils Absolute Auto 4900 /uL (1500-7000); Platelet Count 181 X10^3/uL (150-400); Red Blood Cell Count 4.39 X10^6/uL (4.0-5.2); Red Cell Distribution Width 13.7 % (11.6-14.8); White Blood Cell Count 7.8 X10^3/uL (4.5-11.0)
[2021-11-16 06:19] LABS: BUN Creatinine Ratio 15.9 (6-22); Blood Urea Nitrogen 10 mg/dL (7-17); Calcium 8.8 mg/dL (8.4-10.2); Carbon Dioxide 28 mmol/L (22-32); Chloride 104 mmol/L (98-107); Estimated Glomerular Filt Rate > 60 mL/min (>60); Glucose 132 mg/dL (80-110); HEMOLYSIS < 15 (0-50); Potassium 4.1 mmol/L (3.4-5.1); Sodium 138 mmol/L (137-145)
[2021-11-16 07:15] VITALS: BP 123/73; PULSE 88; RESP 18; TEMP 36.3; O2SAT 93
--- NOTE | 2021-11-16 07:34 | P.DS_ITS ---
History of Present Illness History of Present Illness Chief complaint: Nausea, Dizziness Narrative: Margaret Ramirez is a 76-year-old female with past medical history of hypertension, hyperlipidemia, type 2 diabetes, recurrent UTIs and CVA from carotid artery stenosis s/p stent who presents with 3 hours of word searching, headache and being nauseous. Patient states she has been nauseous for 2 months after starting Trulicity, however this morning in addition to her nausea she had word searching difficulty and a posterior headache so she got concerned for a stroke. She states her symptoms lasted about 3 hours then resolved. In the ED patient had a blood pressure of 215/114. Patient states her blood pressure is normally in the 120-130 systolic on olmesartan. She has no idea why her blood pressure shot up but she is been quite anxious lately but she is unsure why. She denies any extremity weakness, slurred speech or facial droop. Discharge Providers Provider Date of admission: 11/15/21 14:43 Discharge Date: 11/16/21 Primary care physician: Lo Brown MD Discharge provider: Glynn Mae DO Summary Hospital Course Discharge Diagnosis: # stroke-like symptoms concerning for TIA -patient notes word searching for 3 hours, high risk given past stroke -ABCD score of 5 -obtained MRI brain and echo -obtained carotid US -continue home aspirin and added plavix x21 days -continue home rosuvastatin at increased dose of 40mg and ezetimibe # HTN urgency -BP severely elevated in ED 215/114, s/p one dose of IV labetalol -allow permissive HTN for 24 hours -labetolol PRN for SBP >220 or DBP >110 -restart home olmesarta on dc # Carotid artery stenosis s/p R carotid stent -followed by Dr. 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 Bush for further evaluation # DM2 -hold home metformin and trulicity -patient's nausea likely due to trulicity, will discuss with her PCP about this but advised to hold until then as she is quite miserable on it -A1c 7.5% -SSI Hospital Course: Patient admitted for TIA workup due to word searching and nausea. Found to have BP of 215/[address] head without stroke but opacification of right vertebral artery. 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 Patient had normal brain MRI and echo without PFO. 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 Spoke with [facility] neurologist who stated if 100% occlusion nothing to do. Patient was informed of this finding and she will follow-up with her vascular surgeon Dr. Bush at [facility] to discuss these findings. Images were sent with the patient and records were faxed to her PCP Dr. Brown and Dr. Bush's off ice. Time Spent with Patient Time spent: Greater than 30 minutes Exam Vital Signs (past 8 hours): - 11/16/21 00:00 11/16/21 04:00 Temperature 96.7 F L 97.2 F L Pulse Rate 99 H 90 Respiratory Rate 19 17 Blood Pressure 143/81 H 132/85 Pulse Oximetry 97 96 Oxygen Flow Rate 0 0 Oxygen Delivery Method Room Air Oxygen Flow Rate 0 Narrative Exam Narrative: GEN: no acute distress HEENT: moist mucous membranes, PERRL NECK: trachea midline, no JVD CV: regular rate and rhythm, no murmurs PULM: clear bilaterally ABD: soft, nontender, nondistended, no organomegaly EXT: warm and well perfused with no edema NEURO: awake, alert, oriented, no focal deficits Objective Labs Result Diagrams: 11/16/21 06:00 11/16/21 06:00 Labs: Laboratory Results - last 24 hr 11/15/21 11/15/21 11/15/21 11:25 11:25 11:25 WBC 9.3 RBC 4.82 Hgb 13.8 Hct 42.6 MCV 88.4 MCH 28.7 MCHC 32.4 RDW 13.8 Plt Count 200 Neut % (Auto) 66.9 Lymph % (Auto) 23.9 L [place] % (Auto) 7.4 Eos % (Auto) 1.2 L Baso % (Auto) 0.6 Neut # (Auto) 6200 Lymph # (Auto) 2200 [place] # (Auto) 700 Eos # (Auto) 100 Baso # (Auto) 100 PT 10.9 INR 1.0 APTT 30 Sodium 140 Potassium 4.0 Chloride 103 Carbon Dioxide 27 BUN 12 Creatinine 0.68 Estimated GFR > 60 BUN/Creatinine Ratio 17.6 Glucose 173 H Hemoglobin A1c Calcium 9.5 Magnesium Total Bilirubin 0.5 AST 23 ALT 22 Alkaline Phosphatase 51 Total Creatine Kinase 55 CK-MB (CK-2) TNP CK-MB (CK-2) Rel Index TNP Troponin I < 0.012 Total Protein 7.6 Albumin 4.3 Globulin 3.3 Albumin/Globulin Ratio 1.3 SARS-CoV-2 (PCR) 11/15/21 11/15/21 11/15/21 13:19 14:43 14:43 WBC RBC Hgb Hct MCV MCH MCHC RDW Plt Count Neut % (Auto) Lymph % (Auto) [place] % (Auto) Eos % (Auto) Baso % (Auto) Neut # (Auto) Lymph # (Auto) [place] # (Auto) Eos # (Auto) Baso # (Auto) PT INR APTT Sodium Potassium Chloride Carbon Dioxide BUN Creatinine Estimated GFR BUN/Creatinine Ratio Glucose Hemoglobin A1c 7.5 H Calcium Magnesium 1.7 Total Bilirubin AST ALT Alkaline Phosphatase Total Creatine Kinase CK-MB (CK-2) CK-MB (CK-2) Rel Index Troponin I Total Protein Albumin Globulin Albumin/Globulin Ratio SARS-CoV-2 (PCR) Negative 11/16/21 11/16/21 06:00 06:00 WBC 7.8 RBC 4.39 Hgb 12.7 Hct 38.7 MCV 88.3 MCH 28.9 MCHC 32.7 RDW 13.7 Plt Count 181 Neut % (Auto) 63.0 Lymph % (Auto) 25.7 [place] % (Auto) 8.2 Eos % (Auto) 2.8 Baso % (Auto) 0.3 Neut # (Auto) 4900 Lymph # (Auto) 2000 [place] # (Auto) 600 Eos # (Auto) 200 Baso # (Auto) 0 PT INR APTT Sodium 138 Potassium 4.1 Chloride 104 Carbon Dioxide 28 BUN 10 Creatinine 0.63 Estimated GFR > 60 BUN/Creatinine Ratio 15.9 Glucose 132 H Hemoglobin A1c Calcium 8.8 Magnesium Total Bilirubin AST ALT Alkaline Phosphatase Total Creatine Kinase CK-MB (CK-2) CK-MB (CK-2) Rel Index Troponin I Total Protein Albumin Globulin Albumin/Globulin Ratio SARS-CoV-2 (PCR) [facility] Medical History History of common carotid artery stent placement Hyperlipidemia Hypertension Right knee pain 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 TIA (transient ischemic attack) Surgical History History of bilateral salpingo-oophorectomy (BSO) History of endarterectomy Status post appendectomy Status post hysterectomy Family History Brother Age: 72 Diabetes mellitus Hypertension High cholesterol Brother Age: 70 Heart disease Hypertension High cholesterol Father Heart disease Stroke Social History household members: none Smoking Status: Never smoker alcohol intake: current Discharge Plan Discharge Plan Patient Disposition: Home Discharge orders & Medications Prescriptions: New clopidogrel 75 mg Tablet 75 mg PO DAILY 20 Days Qty: 20 0RF Rx Instructions: start on 11/17 Continued metformin 500 mg tablet 500 mg PO BID metoprolol tartrate 25 mg Tablet 12.5 mg PO BID ezetimibe 10 mg Tablet 5 mg PO BEDTIME Label Comments: Rx Instructions: 1/2 tab q day olmesartan [Benicar] 5 mg Tablet 20 mg PO BEDTIME aspirin [Adult Low Dose Aspirin] 81 mg Tablet,Delayed Release (Dr/Ec) 81 mg PO DAILY Changed rosuvastatin 20 mg tablet 40 mg PO BEDTIME 30 Days Qty: 60 0RF Discontinued Trulicity 1.5 mg/0.5 mL pen injector 1.5 mg SUBCUT QWEEK Label Comments: ADMINISTER 1.5 MG UNDER THE SKIN 1 TIME A WEEK Follow up/Referrals: Lo Brown MD [Primary Care Provider] - Discharge Data Primary Care Provider: Lo Brown Attending Provider: Glynn Mae VTE Deep Vein Thrombosis/Pulmonary Embolism Present on Admission: No
[2021-11-16] MEDS: ASPIRIN EC 81 MG TABLET PO (08:55)
[2021-11-16] MEDS: CLOPIDOGREL 75 MG TABLET PO (08:55)
--- NOTE | 2021-11-16 10:59 | CM.DANOTE ---
DCP Assessment: Payor confirmed: Medicare & AARP PCP: Lo Brown MD Pt is a 76 y.o. F who presented to the ER with complaints of nausea and headaches. Pt has history of stroke with AMS confusion. Pt admitted for observation and further management of symptoms. Pt had ECHO and MRI done today. DCP met with pt this morning to discuss discharge needs. Pt sitting up in bed. DCP introduced self and role. Pt states she lives alone on [address] and is fairly independent at baseline. Pt denies DME use. Pt states still drives POV. No discharge needs at this time. Pt can go home via friend POV. Pt awaiting MRI results and anticipate discharge later this afternoon. Whiteboard updated and instructed to call if needed. Pt thankful for discussion. P: Once medically clear for discharge, pt to discharge home via friend POV. Pamela Stein RN/[place] Discharge Planning/Care Management CM Discharge Assessment Start: 11/16/21 08:56 Freq: Status: Active Protocol: Document 11/16/21 10:57 DU (Rec: 11/16/21 10:59 DU [id number]) Discharge Planning Assessment Assigned Industrial Hire Sales Assistant Pamela Stein RN/[place] Advance Directives? Yes Advance Directives on File No History Provided By Patient Prior Living Arrangements House Household Members none Type of transporation used prior to Drives own vehicle admit Independent with ADL's Yes Is patient alert and oriented? Yes Caregiver for Another No Discharge Plan Home Transportation Arrangement Friend POV Referrals Initiated None needed Whiteboard Updated in Patient Room with Yes name and ext. # of Industrial Hire Sales Assistant Comment Instructed to call Review Status In Process Please Provide Date Initial DC 11/16/21 Assessment Was Performed Next Review Type Continued Stay Review
[2021-11-16 11:00] VITALS: BP 126/69; PULSE 94; TEMP 36.2; O2SAT 94
--- NOTE | 2021-11-16 14:56 | PC.NURSE ---
Pt received D/C orders after MRI Home instructions given Tele removed HL removed intact. D/C in stable condition.
== END 2021-11-16 12:17 | disposition home or self-care (01) ==
LOC: ED 13:33 → AC 15:35
PROVIDERS: Admitting Provider Student in an Organized Health Care Education/Training Program; Emergency Provider Emergency Medicine; Family Provider Internal Medicine Endocrinology, Diabetes & Metabolism; PCP Internal Medicine; Referring Provider Emergency Medicine; Visit Provider Student in an Organized Health Care Education/Training Program
DX: I16.0 Hypertensive urgency (principal); R41.0 Disorientation, unspecified; R11.0 Nausea; R51.9 Headache, unspecified; R29.700 NIHSS score 0; I10 Essential (primary) hypertension; E78.5 Hyperlipidemia, unspecified; E11.9 Type 2 diabetes mellitus without complications; Z79.4 Long term (current) use of insulin; Z95.818 Presence of other cardiac implants and grafts; Z79.82 Long term (current) use of aspirin; Z86.73 Personal history of transient ischemic attack (TIA), and cerebral infarction without residual deficits; Z20.822 Contact with and (suspected) exposure to COVID-19
CPT/HCPCS: 36415; 70496; 70498; 70551; 80048; 80053; 81003; 82550; 82962; 83036; 83735; 84484; 85025; 85610; 85730; 87635; 93005; 93010; 93306; 93880; 96374; 99285; C9803; G0378; J1815; Q9967

== ENCOUNTER → 2022-01-31 14:40 | Outpatient (CLI) | payer MEDICARE, SELFPAY ==
[2021-11-15 15:33] VITALS: BMI 32.1
[2022-01-31 16:35] LABS: Folate 11.3 ng/mL (2.76-20.0); Vitamin B12 749 pg/mL (239-931)
[2022-01-31 16:47] LABS: Erythrocyte Sedimentation Rate 18 MM/HR (0-20)
[2022-02-02 11:36] LABS: ANA Screen, IFA Negative (.)
[2022-02-04 14:46] LABS: Albumin 3.2 g/dL (2.9-4.4); Alpha-1-Globulin 0.3 g/dL (0.0-0.4); Gamma Globulin 0.6 g/dL (0.4-1.8); Globulin Total 2.9 g/dL (2.2-3.9); Protein, Total 6.1 g/dL (6.0-8.5)
== END ==
PROVIDERS: Family Provider Internal Medicine Endocrinology, Diabetes & Metabolism; PCP Internal Medicine; Referring Provider Internal Medicine; Visit Provider Internal Medicine
DX: G62.9 Polyneuropathy, unspecified (principal); R26.89 Other abnormalities of gait and mobility; R29.898 Other symptoms and signs involving the musculoskeletal system
CPT/HCPCS: 36415; 82607; 82746; 84155; 84165; 85651; 86038

== ENCOUNTER → 2022-02-06 10:58 | Outpatient (CLI) | payer MEDICARE, SELFPAY ==
[2021-11-15 15:33] VITALS: BMI 32.1
[2022-02-11 14:49] LABS: Albumin 27.4 % (.); M-Spike % Not Observed % (Not Observed); Protein, Total, 24 hr urine 733 mg/24 hr (30-150); Total Urine Protein 43.1 mg/dL (Not Estab.)
== END ==
PROVIDERS: Family Provider Internal Medicine Endocrinology, Diabetes & Metabolism; PCP Internal Medicine; Referring Provider Internal Medicine; Visit Provider Internal Medicine
DX: G62.9 Polyneuropathy, unspecified (principal); R26.89 Other abnormalities of gait and mobility; R29.898 Other symptoms and signs involving the musculoskeletal system
CPT/HCPCS: 84156; 84166

== ENCOUNTER → 2022-02-20 12:01 | Outpatient (CLI) | payer MEDICARE, SELFPAY ==
[2021-11-15 15:33] VITALS: BMI 32.1
== END ==
PROVIDERS: Family Provider Internal Medicine Endocrinology, Diabetes & Metabolism; PCP Internal Medicine; Visit Provider Registered Nurse
DX: R30.0 Dysuria (principal)
CPT/HCPCS: 87077; 87086; 87186

== ENCOUNTER → 2022-07-23 09:08 | Outpatient (CLI) | payer MEDICARE, SELFPAY ==
[2021-11-15 15:33] VITALS: BMI 32.1
== END ==
PROVIDERS: Family Provider Internal Medicine Endocrinology, Diabetes & Metabolism; PCP Internal Medicine; Visit Provider Nurse Practitioner Family
DX: R30.0 Dysuria (principal)
CPT/HCPCS: 87077; 87086; 87186

== ENCOUNTER → 2023-02-22 12:19 | Outpatient (CLI) | payer MEDICARE, SELFPAY ==
[2021-11-15 15:33] VITALS: BMI 32.1
[2023-02-22 13:16] LABS: Influenza A - CEPHEID Flu A NEGATIVE (NEGATIVE); Influenza B - CEPHEID Flu B NEGATIVE (NEGATIVE); Respiratory Syncytial Virus POSITIVE (Negative)
[2023-02-22 13:22] LABS: COVID-19 CEPHEID 4-PLEX PCR Negative (Negative)
== END ==
PROVIDERS: Family Provider Internal Medicine Endocrinology, Diabetes & Metabolism; PCP Internal Medicine; Visit Provider Student in an Organized Health Care Education/Training Program
DX: J34.89 Other specified disorders of nose and nasal sinuses (principal); R09.89 Other specified symptoms and signs involving the circulatory and respiratory systems; R05.1 Acute cough
CPT/HCPCS: 0241U

== ENCOUNTER → 2023-03-05 11:17 | Outpatient (CLI) | payer MEDICARE, SELFPAY ==
[2021-11-15 15:33] VITALS: BMI 32.1
--- NOTE | 2023-03-05 11:19 | DI.RAD.S_ITS ---
PROCEDURE: XR CHEST 2V INDICATIONS: Cough, chest congestion TECHNIQUE: 2 views of the chest were acquired. COMPARISON: [facility], CR, XR CHEST 1V, 09/03/2021, 15:07. FINDINGS: Surgical changes and devices: None. Lungs and pleura: Lungs are clear. No pleural effusions or pneumothorax. Mediastinum: Mediastinal contours are normal. Heart size is normal. Bones and chest wall: No suspicious bony abnormalities. Soft tissues appear unremarkable. IMPRESSION: No acute cardiopulmonary abnormality is seen. Dictated by: Nik Vargas M.D. on 03/05/2023 at 11:49 Approved by: Nik Vargas M.D. on 03/05/2023 at 11:50
== END ==
PROVIDERS: Family Provider Internal Medicine Endocrinology, Diabetes & Metabolism; PCP Internal Medicine; Referring Provider Student in an Organized Health Care Education/Training Program; Visit Provider Student in an Organized Health Care Education/Training Program
DX: R05.9 Cough, unspecified (principal)
CPT/HCPCS: 71046

== ENCOUNTER → 2023-05-30 16:12 | Outpatient (CLI) | payer MEDICARE, SELFPAY ==
[2021-11-15 15:33] VITALS: BMI 32.1
== END ==
PROVIDERS: Family Provider Internal Medicine Endocrinology, Diabetes & Metabolism; PCP Internal Medicine; Visit Provider Physician Assistant
DX: R35.0 Frequency of micturition (principal)
CPT/HCPCS: 87077; 87086; 87186

== ENCOUNTER 2023-09-23 07:53 | Emergency (ER) | payer MEDICARE, SELFPAY ==
[2021-11-15 15:33] VITALS: BMI 32.1
[2023-09-23] VITALS (13 sets, daily range): BP systolic 97–169; BP diastolic 55–79; PULSE 82–98; RESP 14–21; TEMP 36.4; O2SAT 93–98; BMI 30.2
--- NOTE | 2023-09-23 08:02 | ED.GENADULT ---
HPI - General Adult General Chief complaint: Dizziness Stated complaint: IV hydration sent from [facility] Time Seen by Provider: 09/23/23 08:00 Source: patient, RN notes reviewed and old records reviewed Mode of arrival: Ambulatory Limitations: no limitations History of Present Illness HPI narrative: 78-year-old female history of vertigo, prior stroke, carotid endarterectomy, hypertension, dyslipidemia, diabetes type 2 on aspirin daily who presents with complaint of vertigo. Patient states she has had a little bit of room spinning had a short episode about a week ago. Then developed symptoms yesterday. She states she had a significant episode in the past that required hospitalization overnight. She states they never really figured out exact cause. She did see ENT who had actually brought her over to the emergency department for that episode. She states she does not tolerate meclizine it makes her lose her memory. She has been trying homeopathic treatments without much improvement. She describes room spinning particularly bending over up and down such as when she was gardening. She has been able to ambulate, she states no numbness tingling or weakness. No headache, maybe some mild blurred vision but no loss of vision. No difficulty with speech. Patient states nausea but no vomiting. No chest pain or shortness of breath. Some mild constipation. No new urinary symptoms, no incontinence. Patient has been able to ambulate. She drove herself to the walk-in clinic today she states her very ride from [facility] was quite uncomfortable but otherwise she did well. Patient has had prior hysterectomy, appendectomy, back and hip surgery, carotid endarterectomy. States allergic to meclizine she loses her memory and is sensitive to propofol. No tobacco, alcohol once or twice weekly, no recreational drugs. Dr. Brown is her Primary care physician in [place]. Related Data Home Medications Medication Instructions Recorded Confirmed aspirin 81 mg tablet,delayed 81 mg PO DAILY 06/19/19 09/23/23 release (Adult Low Dose Aspirin) ezetimibe 10 mg tablet 5 mg PO BEDTIME 05/22/20 09/23/23 metoprolol tartrate 25 mg tablet 12.5 mg PO BID 05/22/20 09/23/23 olmesartan 5 mg tablet (Benicar) 20 mg PO BEDTIME 05/22/20 09/23/23 glipizide 5 mg tablet 5 mg PO DAILY 02/22/23 09/23/23 estradiol 10 mcg vaginal tablet mcg vaginal 09/23/23 09/23/23 ondansetron 4 mg disintegrating 4 mg PO Q8H PRN 09/23/23 09/23/23 tablet tirzepatide 5 mg/0.5 mL mg SUBCUT 09/23/23 09/23/23 subcutaneous pen injector (Brandon) Previous Rx's Medication Instructions Recorded rosuvastatin 20 mg tablet 40 mg (2 x 20 mg) PO BEDTIME 30 11/16/21 days #60 tabs lorazepam 0.5 mg tablet (Ativan) 0.5 mg PO TID PRN vertigo #10 tabs 09/23/23 ondansetron 4 mg disintegrating 4 mg PO Q6H PRN nausea and 09/23/23 tablet vomiting #10 tabs Allergies Allergy/AdvReac Type Severity Reaction Status Date / Time meclizine Allergy vertigo Verified 09/23/23 07:34 Review of Systems Review of Systems ROS Unobtainable: All systems reviewed & are unremarkable except as noted in HPI and below Patient History Medical History Hyperlipidemia History of common carotid artery stent placement 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 Right knee pain Hypertension TIA (transient ischemic attack) Surgical History History of endarterectomy History of bilateral salpingo-oophorectomy (BSO) Status post hysterectomy Status post appendectomy Family History Brother Age: 74 Diabetes mellitus Hypertension High cholesterol Brother Age: 72 Heart disease Hypertension High cholesterol Father Heart disease Stroke Social History household members: none Smoking Status: Never smoker alcohol intake: current Smoking Status: Never smoker alcohol intake frequency: a few times a week Substance Use Type: does not use Exam Narrative Exam Narrative: GEN: well nourished, well appearing female, alert and oriented x 3, patient appears to be in mild distress. HEENT: Atraumatic, pupils are equal round reactive to light, extraocular movements are intact, no nystagmus, nares are clear, TMs are clear with no fluid, there is no conjunctival pallor. Throat is clear without any exudates, erythema, tonsillar enlargement or uvular deviation, no facial droop HEART: Regular rate and rhythm without murmur, clicks, rubs. Pulses are equal in upper and lower extremities LUNGS:Lungs clear to auscultation, no wheezes, rales, crackles, chest moves symmetrically ABD:bowel sounds normal, soft, non-tender, no guarding, rebound, rigidity, no masses noted, no hepatosplenomegaly :No CVA tenderness MSCL: Non-tender, no muscle atrophy, muscles strength 5/5 upper and lower extremities, full range of motion, normal gait NEURO:CN 2-12 intact, sensation normal, finger nose finger test normal, heel boudreaux test normal Initial Vital Signs Initial Vital Signs: Vital Signs Pulse Rate 97 H 09/23/23 08:05 Pulse Oximetry 98 09/23/23 08:05 Course Orders Ordered: ED Orders 09/23/23 09:43 MR head/brain wo con Stat Discontinued Medications Aspirin (Aspirin 81 Mg Chew Tab) 324 mg PO NOW ONE Stop: 09/23/23 08:12 Last Admin: 09/23/23 09:08 Dose: Not Given Documented By: NATHAN Sodium Chloride (Normal Saline 0.9%) 1,000 mls @ 1,000 mls/hr IV BOLUS ONE Stop: 09/23/23 10:07 Last Infusion: 09/23/23 10:20 Dose: Infused Documented By: Admin: 09/23/23 09:25 Dose: 1,000 mls/hr Documented By: NATHAN Lorazepam (Lorazepam 2 Mg/Ml Inj) 0.5 mg IV NOW ONE Stop: 09/23/23 09:47 Last Admin: 09/23/23 09:55 Dose: 0.5 mg Documented By: NATHAN Ondansetron HCl (Ondansetron 4 Mg/2 Ml Inj) 4 mg IV NOW ONE Stop: 09/23/23 09:34 Last Admin: 09/23/23 09:39 Dose: 4 mg Documented By: NATHAN Vital Signs Vital signs: Vital Signs - 8 hr 09/23/23 10:47 09/23/23 10:48 09/23/23 10:48 Pulse Rate 98 H 94 H Respiratory Rate Blood Pressure 124/68 Pulse Oximetry 95 95 Oxygen Delivery Method Room Air Room Air 09/23/23 11:00 09/23/23 11:00 09/23/23 12:20 Pulse Rate 90 88 Respiratory Rate 14 17 Blood Pressure 120/65 131/65 Pulse Oximetry 95 94 Oxygen Delivery Method Room Air Room Air Medical Decision Making Lab Data 09/23/23 08:09 09/23/23 08:09 Labs: Lab Results 09/23/23 09/23/23 Range/Units 08:09 08:53 WBC 8.8 (4.5-11.0) X10^3/uL RBC 4.62 (4.0-5.2) X10^6/uL Hgb 13.6 (12.0-16.0) g/dL Hct 41.0 (36-46) % MCV 88.8 (80-100) fL MCH 29.5 (26-34) PG MCHC 33.3 (30-36) % RDW 14.5 (11.6-14.8) % Plt Count 205 (150-400) X10^3/uL Neut % (Auto) 63.2 (50-75) % Lymph % (Auto) 25.1 (25-40) % Pershing % (Auto) 8.9 (3-14) % Eos % (Auto) 2.3 (2-4) % Baso % (Auto) 0.5 (0-2) % Neut # (Auto) 5600 (1919-0377) /uL Lymph # (Auto) 2200 (8271-8237) /uL Pershing # (Auto) 800 (0-900) /uL Eos # (Auto) 200 (0-450) /uL Baso # (Auto) 0 (0-100) /uL PT 10.9 (9.4-12.5) SECONDS INR 1.0 (0.9-1.3) APTT 29 (25.1-36.5) SECONDS Sodium 137 (137-145) mmol/L Potassium 4.0 (3.4-5.1) mmol/L Chloride 106 (98-107) mmol/L Carbon Dioxide 26 (22-32) mmol/L BUN 18 H (7-17) mg/dL Creatinine 0.91 (0.52-1.04) mg/dL Estimated GFR > 60 (>60) mL/min BUN/Creatinine Ratio 19.8 (6-22) Glucose 179 H (80-110) mg/dL Calcium 9.8 (8.4-10.2) mg/dL Magnesium 2.2 (1.6-2.3) mg/dL Total Bilirubin 0.8 (0.2-1.3) mg/dL AST 29 (14-36) IU/L ALT 30 (<35) IU/L Alkaline Phosphatase 58 (38-126) U/L Total Creatine Kinase 61 (30-135) U/L Troponin I < 0.012 (0.01-0.034) ng/mL NT-Pro-B Natriuret Pep 61 (<450) pg/mL Total Protein 7.3 (6.3-8.2) g/dL Albumin 4.2 (3.5-5.0) g/dL Globulin 3.1 (1.7-4.1) g/dL Albumin/Globulin Ratio 1.4 (1.0-2.8) Lipase 121 (23-300) U/L Urine RBC 1-5/hpf D (0-5/HPF) Urine WBC 1-5/hpf (0-5/HPF) Ur Squamous Epith Cells 5-10 /hpf H (0-5/HPF) Urine Bacteria Occasional (0-1) (None) Ur Culture Indicated? Cult not indicated Vol Urine Centrifuged 10ml (spun) Urine Dip Bedside Urine Glucose 100 mg/dl Bedside Urine Ketone - Negative Urine Specific [place] 1.010 Bedside Urine Occult Blood +/- Bedside Urine pH 6.0 Bedside Urine Protein +/- 15 Bedside Urine Urobilinogen - Negative Bedside Urine Nitrite - Negative Bedside Urine Leukocytes - Negative Esterase Point of care testing: Urine Dip Bedside Urine Glucose 100 mg/dl Bedside Urine Ketone - Negative Urine Specific [place] 1.010 Bedside Urine Occult Blood +/- Bedside Urine pH 6.0 Bedside Urine Protein +/- 15 Bedside Urine Urobilinogen - Negative Bedside Urine Nitrite - Negative Bedside Urine Leukocytes - Negative Esterase ECG Data Attestation: I personally reviewed and interpreted this ECG as follows: Prior ECG tracings: available for review Interpretation: Sinus rhythm rate 85 VT 140 QRS of [address]TC [address] No acute [address] elevation depression noted. No acute change from 11/15/2021. MDM Narrative Medical decision making narrative: 78-year-old female with vertigo she has had prior episodes in the past patient had strokes. States that they were not necessarily related. She does not have any other acute neurologic changes currently. But based on her history known carotid endarterectomy felt appropriate for CT head and angio as well as labs. Chest x-ray shows no acute change Head CT shows no acute change CT head neck angio no significant intracranial arterial abnormality persistent occlusion proximal vertebral artery with distal reconstitution right internal carotid artery stent is widely patent. EKG shows sinus rhythm Labs show normal CBC, INR is 1, electrolytes are overall appropriate sodium is 137 potassium is 4 chloride 106 CO2 of 26 with a BUN 18 creatinine 0.91 glucose of 179 LFTs are negative troponins less than 0.012 Point of care urine shows glucose and protein. Patient does not tolerate meclizine. Was given fluids as well as a dose of Zofran. She drove herself today so did not give any Ativan or benzodiazepines initially. On recheck after discussion suspect this is related to her past vertigo she states her prior strokes did not feel similar but we did offer MR brain for full evaluation. MR Brain shows no acute change. Discussed with patient she does not tolerate meclizine but can try Ativan p.o.. Also given script for Zofran. Patient tried Neftaly maneuver home last night she states it with a bit helpful but still had symptoms into this morning. Discussed she continued to do this we will give contact for ENT for follow-up, she has been able to ambulate safely at home so felt appropriate for discharge home. Discussed return precautions all questions answered. Discharge Plan Departure Patient Disposition: Home Clinical Impression: Vertigo Instructions: DI for Vertigo Activity Restrictions/Additional Instructions: Follow up with your physician for recheck if needed you can also follow up with ENT, contacts included below. You can take Zofran 1 tablet every 6 hours as needed for nausea. If needed you can take Ativan 1 tablet every 6 hours as needed for vertigo symptoms. This medication can make you sleepy do not drive, performed hazardous activities make any major decisions while taking it. Prescription sent to [facility] in [place]. Please return for severe headaches, sudden vision changes, numbness tingling or weakness that is new, difficulty with movement or gait, if you are having recurrent falls or fairly your unsafe, persistent vomiting or other new or concerning changes. Prescriptions: New ondansetron 4 mg tablet,disintegrating 4 mg PO Q6H PRN (Reason: nausea and vomiting) Qty: 10 0RF lorazepam [Ativan] 0.5 mg tablet 0.5 mg PO TID PRN (Reason: vertigo) Qty: 10 0RF No Action glipizide 5 mg tablet 5 mg PO DAILY estradiol 10 mcg tablet vaginal ondansetron 4 mg tablet,disintegrating 4 mg PO Q8H PRN Mounjaro 5 mg/0.5 mL pen injector SUBCUT Patient Comments: [NO ORIGINAL SIG] metoprolol tartrate 25 mg Tablet 12.5 mg PO BID ezetimibe 10 mg Tablet 5 mg PO BEDTIME Patient Comments: Rx Instructions: 1/2 tab q day olmesartan [Benicar] 5 mg Tablet 20 mg PO BEDTIME rosuvastatin 20 mg tablet 40 mg PO BEDTIME 30 Days Qty: 60 0RF aspirin [Adult Low Dose Aspirin] 81 mg Tablet,Delayed Release (Dr/Ec) 81 mg PO DAILY Referrals: Vance Pollock MD [Physician] - Lo Brown MD [Primary Care Provider] - Stand Alone Forms: Patient Portal/API
--- NOTE | 2023-09-23 08:11 | DI.RAD.S_ITS ---
PROCEDURE: XR CHEST 1V INDICATIONS: chest pain TECHNIQUE: One view of the chest was acquired. COMPARISON: None. FINDINGS: Overlying EKG leads mildly limit evaluation. Surgical changes and devices: None. Lungs and pleura: Lungs are clear. No pleural effusions or pneumothorax. Mediastinum: Mediastinal contours appear normal. Heart size is normal. Aortic arch is calcified, indicating atherosclerosis. Bones and chest wall: No suspicious bony lesions. Overlying soft tissues appear unremarkable. IMPRESSION: No acute cardiopulmonary process. Dictated by: Frances Magdaleno M.D. on 09/23/2023 at 8:37 Approved by: Frances Magdaleno M.D. on 09/23/2023 at 8:38
--- NOTE | 2023-09-23 08:23 | DI.CT.S_ITS ---
PROCEDURE: CT HEAD/BRAIN WO CON INDICATIONS: vertigo, similar to prior, hx cva w/ prior occlusion, CEA TECHNIQUE: Noncontrast 4.5 mm thick angled axial sections acquired from the foramen magnum to the vertex, with coronal and sagittal reformats. For radiation dose reduction, the following was used: automated exposure control, adjustment of mA and/or kV according to patient size. COMPARISON: None. FINDINGS: Image quality: Diagnostic. CSF spaces: Basal cisterns are patent. No extra-axial fluid collections. The ventricles are symmetric in size and shape. Brain: No intracranial bleeds or masses. There is cerebral volume loss for age, with resultant ventricular and sulcal prominence. There are periventricular and deep white matter chronic small vessel ischemic changes. There is intracranial internal carotid artery atherosclerosis. Remote right HAND STAPLER territory infarct, with encephalomalacia/gliosis. Skull and face: Calvarium and visualized facial bones appear intact, without suspicious lesions. Sinuses: Visualized sinuses and mastoids are clear. IMPRESSION: No acute intracranial pathology. Dictated by: Ruy Vegas M.D. on 09/23/2023 at 9:23 Approved by: Ruy Vegas M.D. on 09/23/2023 at 9:24
--- NOTE | 2023-09-23 08:23 | EKG_ITS ---
[address] [address] Test Date: 2023-09-23 Pat Name: Bryan Ramirez Department: [facility] Room: Gender: Female [employer] Instructor: [place] : [id number] Requested By: Order Number: [id number] Reading MD: Kaden Drake Measurements Intervals [place] Rate: 85 P: 6 OR: 140 QRS: 55 QRSD: 90 T: 38 QT: 374 QTc: 445 Interpretive Statements Normal sinus rhythm Electronically Signed On 09-23-2023 12:34:19 PDT by Kaden Drake
--- NOTE | 2023-09-23 08:23 | DI.CT.S_ITS ---
PROCEDURE: CT ANGIO HEAD AND NECK INDICATIONS: vertigo, similar to prior, hx cva w/ prior occlusion, CEA TECHNIQUE: After the administration of intravenous contrast, 1 mm thick sections acquired from the aortic arch through the [place] of [place]. 3-dimensional xdvfwxr-fevplsxgv-acelvyiaso (MIP) and/or volume rendering reformats were acquired of the central intracranial vasculature and neck separately. For radiation dose reduction, the following was used: automated exposure control, adjustment of mA and/or kV according to patient size. COMPARISON: [facility], CT, CT HEAD/BRAIN WO CON, 09/23/2023, 8:36. CT 11/15/2021. FINDINGS: Image quality: Diagnostic. BRAIN: Please see same day head CT. HEAD CT ANGIOGRAPHY: Anterior circulation: Intracranial internal carotid arteries are normal in size and flow. The flow within the paired anterior cerebral arteries is normal and symmetric. The flow within the middle cerebral arteries is normal and symmetric. The anterior communicating artery is seen. No aneurysms are seen. Posterior circulation: Visualized portions of the vertebral arteries demonstrate normal caliber, and join to form a normal appearing basilar artery. Flow within the posterior cerebral arteries is normal and symmetric. No aneurysms are seen. NECK CT ANGIOGRAPHY: Carotid system: The great vessels demonstrate a conventional anatomy as they arise from the aortic arch. The origins of the common carotid arteries appear patent. The common carotid arteries demonstrate normal caliber and courses. The bifurcation regions are both widely patent. The internal carotid arteries demonstrate normal calibers and courses. Right carotid endarterectomy with stent. Minimal interval hyperplasia present. Posterior circulation: The proximal 3 centimeter origin of the right vertebral artery [place] occluded, with reconstitution distally, likely from collateral pathways or retrograde blood flow. Both vertebral arteries forearm a basilar artery. Soft tissues: Visualized neck soft tissues demonstrate no suspicious abnormalities. Bones: No suspicious bony lesions. Visualized cervical spine appears normally aligned. IMPRESSION: No significant intracranial arterial abnormality is seen. 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 Right internal carotid artery stent is widely patent. Any quantitative measurements of stenosis were performed using NASCET criteria. Dictated by: Ruy Vegas M.D. on 09/23/2023 at 9:17 Approved by: Ruy Vegas M.D. on 09/23/2023 at 9:22
[2023-09-23 08:26] LABS: Add Manual Diff / Slide Review NO; Basophils Absolute Auto 0 /uL (0-100); Basophils Percent Auto 0.5 % (0-2); Eosinophils Absolute Auto 200 /uL (0-450); Eosinophils Percent Auto 2.3 % (2-4); Hemoglobin 13.6 g/dL (12.0-16.0); Lymphocytes Absolute Auto 2200 /uL (1100-4500); Lymphocytes Percent Auto 25.1 % (25-40); Mean Corpuscular HGB Conc 33.3 % (30-36); Mean Corpuscular Hemoglobin 29.5 PG (26-34); Mean Corpuscular Volume 88.8 fL (80-100); Monocytes Absolute Auto 800 /uL (0-900); Monocytes Percent Auto 8.9 % (3-14); Neutrophils Absolute Auto 5600 /uL (1500-7000); Neutrophils Percent Auto 63.2 % (50-75); Platelet Count 205 X10^3/uL (150-400); Red Blood Cell Count 4.62 X10^6/uL (4.0-5.2); Red Cell Distribution Width 14.5 % (11.6-14.8); White Blood Cell Count 8.8 X10^3/uL (4.5-11.0)
[2023-09-23 08:34] LABS: Prothrombin Time 10.9 SECONDS (9.4-12.5)
[2023-09-23 08:37] LABS: PTT Partial Thromboplastin Tim 29 SECONDS (25.1-36.5)
[2023-09-23 08:39] LABS: Alanine Aminotransferase 30 IU/L (<35); Albumin 4.2 g/dL (3.5-5.0); Albumin Globulin Ratio 1.4 (1.0-2.8); Alkaline Phosphatase 58 U/L (38-126); Aspartate Aminotransferase 29 IU/L (14-36); BUN Creatinine Ratio 19.8 (6-22); Bilirubin Total 0.8 mg/dL (0.2-1.3); Blood Urea Nitrogen 18 mg/dL (7-17); Calcium 9.8 mg/dL (8.4-10.2); Carbon Dioxide 26 mmol/L (22-32); Chloride 106 mmol/L (98-107); Creatine Kinase 61 U/L (30-135); Estimated Glomerular Filt Rate > 60 mL/min (>60); Globulin 3.1 g/dL (1.7-4.1); Glucose 179 mg/dL (80-110); HEMOLYSIS 16 (0-50); Lipase 121 U/L (23-300); Magnesium 2.2 mg/dL (1.6-2.3); Sodium 137 mmol/L (137-145); Total Protein 7.3 g/dL (6.3-8.2)
[2023-09-23 08:50] LABS: NT-proBNP (BNP-Adult 18+) 61 pg/mL (<450); Troponin I < 0.012 ng/mL (0.01-0.034)
[2023-09-23 09:23] LABS: Bacteria Urine Occasional (0-1); Culture Indicated Urine Cult Not Indicated; RBC Urine 1-5/HPF (0-5/HPF); Squamous Epithelial Cell Urine 5-10 /HPF (0-5/HPF); Urine Volume 10mL (spun); WBC Urine 1-5/HPF (0-5/HPF)
[2023-09-23] MEDS: SODIUM CHLORIDE 0.9% 1,000 ML 1000 ML IV (09:25)
[2023-09-23] MEDS: ONDANSETRON 4 MG/2 ML INJ IV (09:39)
--- NOTE | 2023-09-23 09:43 | DI.MRI.S_ITS ---
PROCEDURE: MR HEAD/BRAIN WO CON INDICATIONS: vertigo, hx cva, but does not feel similar TECHNIQUE: Non-contrast axial T1 spin echo, axial T2 fast spin echo, sagittal and axial FLAIR, coronal T2 fast spin echo, axial gradient echo, axial diffusion and ADC through the brain. COMPARISON: [facility], CT, CT HEAD/BRAIN WO CON, 09/23/2023, 8:36. FINDINGS: Image quality: Excellent. CSF spaces: Ventricles appear symmetric in size and shape. Basal cisterns are patent. No extra-axial fluid collections. Brain: No intracranial bleeds or mass effects. There is cerebral volume loss for age. There are periventricular and deep white matter chronic small vessel ischemic changes. Brainstem appears normal. Diffusion-weighted images show no acute infarct. No chronic ischemic insults. Normal intravascular flow voids are present. Remote infarct the right parieto-occipital region, with encephalomalacia. Skull and face: Calvarial bone marrow is normal in signal. Orbits are normal. Sinuses: Sinuses and mastoids are clear. IMPRESSION: No acute intracranial pathology. Dictated by: Ruy Vegas M.D. on 09/23/2023 at 11:20 Approved by: Ruy Vegas M.D. on 09/23/2023 at 11:22
[2023-09-23] MEDS: LORazepam 2 MG/ML INJ 0.5 MG IV (09:55)
== END 2023-09-23 12:22 | disposition home or self-care (01) ==
PROVIDERS: Emergency Provider Emergency Medicine; Family Provider Internal Medicine Endocrinology, Diabetes & Metabolism; PCP Internal Medicine
DX: R42 Dizziness and giddiness (principal); Z86.73 Personal history of transient ischemic attack (TIA), and cerebral infarction without residual deficits; R07.9 Chest pain, unspecified
CPT/HCPCS: 36415; 70450; 70496; 70498; 70551; 71045; 80053; 81003; 81015; 82550; 83690; 83735; 83880; 84484; 85025; 85610; 85730; 93005; 96361; 96374; 96375; 99284; J2060; J2405; Q9967